=== PATIENT | male | born 1955 | race Caucasian/White ===

== ENCOUNTER 2019-12-14 08:21 | Outpatient (CLI) | payer SELFPAY ==
--- NOTE | 2019-12-14 08:35 | MM_ITS ---
WS: [id number] DIAGNOSTIC BILATERAL DIGITAL MAMMOGRAM WITH CAD RIGHT breast ultrasound with axilla, limited HISTORY: Painful RIGHT breast nodule. COMPARISON: None. TECHNIQUE: Bilateral craniocaudad, mediolateral oblique, and mediolateral views are submitted. Spot c ompression RIGHT CC Computer aided detection utilized. Breast composition: The breasts are almost entirely fatty. Rounded soft tissue mass with indistinct m argins. Mass is posterior to the nipple measuring 2.8 x 2.1 x 2.6 cm. Margins blend into the adjacent breast fat. Asymmetric to the LEFT side. LEFT breast tissue is negative. RIGHT breast ultrasound, limited. Hypoechoic irregular indistinct mass in the subareolar location with features of gynecomastia. Mass m easures 2.2 x 0.9 x 2.1 cm. Corresponds to the mammographic abnormality. Normal fatty sharonda remains in the axillary lymph nodes. MM/[id number] IMPRESSION: BI-RADS: 2-Benign FOLLOW UP: See Report Findings are most consistent with nodular gynecomastia. Clinically if this area continues to enlarge ultrasound-guided biopsy can be obtained.
== END 2019-12-14 08:22 | disposition home or self-care (01) ==
PROVIDERS: Family Provider Nurse Practitioner Family; PCP Family Medicine; Visit Provider Nurse Practitioner Family
DX: N63.41 Unspecified lump in right breast, subareolar (principal)
CPT/HCPCS: 76642; 77066

== ENCOUNTER → 2020-05-05 09:40 | Outpatient (BNVA) | payer SELFPAY | PROVIDERS: Family Provider Nurse Practitioner Family; PCP Family Medicine; Visit Provider Family Medicine | DX: N39.0 Urinary tract infection, site not specified (principal); R50.9 Fever, unspecified | CPT/HCPCS: 80053; 81003; 87077; 87086; 87186 ==

== ENCOUNTER 2020-05-06 17:43 | Emergency (ER) | payer SELFPAY ==
[2020-05-06 18:20] VITALS: BP 166/100; PULSE 83; RESP 18; TEMP 36.4; O2SAT 96; BMI 27.3
[2020-05-06 19:57] VITALS: BP 132/78; PULSE 86; RESP 16; O2SAT 98
--- NOTE | 2020-05-06 20:10 | W.ED.MALEGU ---
HPI - Male Genitourinary General: Chief complaint: Urogenital-Male Stated complaint: unable to void, abd swelling Time Seen by Provider: 05/06/20 19:45 History of Present Illness: HPI Narrative: 64-year-old male complains of urinary symptoms the past 3 days or so. He visited his doctor, who thought that he might have a urinary tract infection. He was placed on antibiotics. He reports today that he is only had dribbles of urine, and feels like he needs to go all the time. He is noticed that his lower belly feels esteban. MD Complaint: dysuria Onset (ago): day(s) (3) Duration: constant Location: right inguinal region and left inguinal region Severity: moderate Associated symptoms: Reports nausea; Deny dysuria, hematuria or vomiting Review of Systems Const: Denies: fever(s) or chills Eyes: Denies: change in vision ENMT: Denies: swelling of lips/tongue or sinus pain Card: Reports: swelling of feet/ankles; Denies: chest pain, palpitations or edema Resp: Denies: dyspnea, productive cough, non-productive cough or wheezing GI: Reports: abdominal pain and nausea; Denies: vomiting or rectal pain : Reports: difficulty urinating, urinary frequency and urinary urgency; Denies: dysuria or hematuria Musc: Reports: back pain; Denies: neck pain, joint redness or joint warmth Skin/Breast: Denies: rash, pruritus or erythema Neuro: Denies: headache(s), dizziness or vertigo Psych: Denies: anxiety [facility] ED PFSH: Medical History (Updated 05/06/20 @ 21:35 by Nabil Moe DO) Anterior chest wall pain Social History Smoking and tobacco status: current every day smoker cigarettes Packs smoked per day: 1 Alcohol intake: current Alcohol intake frequency: holidays/special occasions only Physical Exam Const: GENERAL APPEARANCE: well developed ORIENTATION/CONSCIOUSNESS: Yes oriented to person, Yes oriented to place and Yes oriented to time HENMT: COMMON NORMALS: normocephalic, external ears normal and Normal external nose present HEAD & SCALP: normocephalic FACE & SINUS: normal facial exam NOSE: Normal external nose present and No nasal discharge present EXTERNAL EAR: Yes external ears normal Eye: COMMON NORMALS: Equal, round and reactive pupils present, EOMs intact bilaterally and conjunctivae normal EYELID: eyelids normal CONJUNCTIVA: Yes conjunctivae normal PUPIL: Yes Equal, round and reactive pupils present Neck/C-Spine: GENERAL: No tracheal deviation Chest: COMMONS NORMALS: normal inspection of the chest CHEST: No tenderness Resp: COMMON NORMALS: clear to auscultation bilaterally EFFORT & INSPECTION: No tachypneic, No respiratory distress, No retractions, No uses accessory muscles and No tracheal deviation AUSCULTATION: clear to auscultation bilaterally, no rhonchi, no wheezes and lung sounds not diminished Cardio: COMMON NORMALS: regular rate and regular rhythm RATE: regular rate RHYTHM: regular rhythm HEART SOUNDS: no murmurs PERIPHERAL PULSES: radial pulses present GI: INSPECTION: No abdominal distension AUSCULTATION: No Hyperactive bowel sounds present and No Hypoactive bowel sounds present PALPATION: Yes Tenderness to palpation present (GI), Yes Guarding due to palpation present (GI), No Rigid due to palpation and Yes Bladder palpation abnormal Details: distended and tender PERCUSSION: no dullness to percussion and no tympanic to percussion : COMMON NORMALS: Yes no CVA tenderness BLADDER/KIDNEY EXAM: Yes no CVA tenderness and Yes Bladder palpation abnormal Back/Pelvis: COMMON NORMALS: no CVA tenderness Neuro: SENSORIUM/ORIENTATION: Yes oriented to person, Yes oriented to place and Yes oriented to time Psych: COMMON NORMALS: mental status grossly normal Skin: COMMON NORMALS: no rashes or lesions noted GENERAL SKIN EXAM: no rashes or lesions noted Course Vital Signs: Vital signs: Vital Signs Temperature 97.6 F 05/06/20 18:20 Pulse Rate 70 05/06/20 22:00 Respiratory Rate 16 05/06/20 22:00 Blood Pressure 128/72 05/06/20 22:00 Pulse Oximetry 98 05/06/20 22:00 MDM - Male MDM Narrative: Medical decision making narrative: 64-year-old male with frequency, urgency, dribbling urine, and belly pain. Bedside ultrasound revealed a very large bladder. On further history taking, it was noted that this patient was bitten in the penis by a horse at age 2, and his penis was reattached . On attempt to pass catheter, scar tissue at their urethra was encountered. A smaller red catheter without balloon was inserted, with nearly immediate output of 5000 mL. On discharge, the patient did put out 2000 mL of urine into his Jacob bag. With passage of the catheter, it is believed that the obstruction is resolved catheter was removed, and the patient will be discharged. Urinalysis showed a partially treated urinary tract infection. Third-generation cephalosporin will be added to his regimen. Lab Data: Labs: Lab Results 05/06/20 05/06/20 05/06/20 Range/Units 20:20 20:20 20:20 WBC 17.1 H (4.0-10.0) 10^3/ uL RBC 4.43 (4.1-5.3) 10^6/u L Hgb 13.3 (11.7-16.6) g/dL Hct 39.5 L (42.0-52.0) % MCV 89.2 (80-94) fL MCH 30.0 (28.0-34.0) pg MCHC 33.7 (30.0-36.0) g/dL RDW 13.6 (12.1-15.1) % Plt Count 231 (130-400) 10^3/c mm MPV 10.3 (7.4-10.4) fL Neut % (Auto) 83.3 % Lymph % (Auto) 7.7 % Dawson % (Auto) 7.7 % Eos % (Auto) 0.3 % Baso % (Auto) 0.2 % Neut # (Auto) 14.2 H (1.8-7.7) 10^3/u L Lymph # (Auto) 1.3 (0.8-4.8) 10^3/u L Dawson # (Auto) 1.3 H (0.2-0.9) 10^3/u L Eos # (Auto) 0.1 (0.0-0.8) 10^3/u L Baso # (Auto) 0.0 (0.0-0.1) 10^3/u L Nucleated RBC % (a uto) 0 % Nucleated RBCs # 0.0 /100WBC Sodium 132 L (136-145) mmol/L Potassium 3.5 (3.5-5.1) mmol/L Chloride 95 L (98-107) mmol/L Carbon Dioxide 23 (22-29) mmol/L Anion Gap 17.5 (5-19) BUN 15 (8-23) mg/dL Creatinine 0.7 (0.7-1.2) mg/dL GFR Calculation 112.8 (90-130) mL/min Glucose 122 H (65-115) mg/dL Calculated Osmolal ity 272 L (285-295) mOsm/k g Lactate 0.8 (0.5-2.2) mmol/L Calcium 9.3 (8.5-10.5) mg/dL Total Bilirubin 0.4 (0.15-1.2) mg/dL AST 28 (0-40) U/L ALT 47 H (0-41) U/L Alkaline Phosphata se 86 (40-130) IU/L Total Protein 7.3 (6.6-8.7) g/dL Albumin 3.9 (3.5-5.2) g/dL Globulin 3.4 (1.3-4.6) g/dL Urine Color (Yellow) Urine Appearance (CLEAR) Urine pH (5-7) Ur Specific Gravit y (1.005-1.030) Urine Protein (Negative) Urine Glucose (UA) (Normal) Urine Ketones (Negative) Urine Blood (Negative) Urine Nitrate (Negative) Urine Bilirubin (NEGATIVE) Urine Urobilinogen (Negative) mg/dL Ur Leukocyte Giulia ase (Negative) Urine RBC (0-2) /hpf Urine WBC (0-5) /hpf Ur Squamous Epith Cells (0-5) Urine Bacteria (NONE) /12 Range/Units 20:35 WBC (4.0-10.0) 10^3/ uL RBC (4.1-5.3) 10^6/u L Hgb (11.7-16.6) g/dL Hct (42.0-52.0) % MCV (80-94) fL MCH (28.0-34.0) pg MCHC (30.0-36.0) g/dL RDW (12.1-15.1) % Plt Count (130-400) 10^3/c mm MPV (7.4-10.4) fL Neut % (Auto) % Lymph % (Auto) % Dawson % (Auto) % Eos % (Auto) % Baso % (Auto) % Neut # (Auto) (1.8-7.7) 10^3/u L Lymph # (Auto) (0.8-4.8) 10^3/u L Dawson # (Auto) (0.2-0.9) 10^3/u L Eos # (Auto) (0.0-0.8) 10^3/u L Baso # (Auto) (0.0-0.1) 10^3/u L Nucleated RBC % (a uto) % Nucleated RBCs # /100WBC Sodium (136-145) mmol/L Potassium (3.5-5.1) mmol/L Chloride (98-107) mmol/L Carbon Dioxide (22-29) mmol/L Anion Gap (5-19) BUN (8-23) mg/dL Creatinine (0.7-1.2) mg/dL GFR Calculation (90-130) mL/min Glucose (65-115) mg/dL Calculated Osmolal ity (285-295) mOsm/k g Lactate (0.5-2.2) mmol/L Calcium (8.5-10.5) mg/dL Total Bilirubin (0.15-1.2) mg/dL AST (0-40) U/L ALT (0-41) U/L Alkaline Phosphata se (40-130) IU/L Total Protein (6.6-8.7) g/dL Albumin (3.5-5.2) g/dL Globulin (1.3-4.6) g/dL Urine Color [place] (Yellow) Urine Appearance Clear (CLEAR) Urine pH 6 (5-7) Ur Specific Gravit y 1.010 (1.005-1.030) Urine Protein 1+ H (Negative) Urine Glucose (UA) Norm (Normal) Urine Ketones Negative (Negative) Urine Blood 2+ H (Negative) Urine Nitrate Positive H (Negative) Urine Bilirubin 1+ H (NEGATIVE) Urine Urobilinogen 4 H (Negative) mg/dL Ur Leukocyte Giulia ase Trace H (Negative) Urine RBC 0-4 H (0-2) /hpf Urine WBC 5-10 H (0-5) /hpf Ur Squamous Epith Cells 0-4 H (0-5) Urine Bacteria 3+ H (NONE) Discharge Plan Discharge Patient Disposition: Home, Self-Care Clinical Impression: Acute retention of urine UTI (urinary tract infection) Qualifiers: Urinary tract infection type: acute cystitis Condition: Stable Prescriptions: New cefdinir 300 mg capsule 300 mg PO Q12H 10 Days Qty: 20 RF: 0 No Action ibuprofen 200 mg capsule 600 mg PO Q6H PRNRF: 0 doxycycline hyclate [Vibramycin] 100 mg capsule 100 mg PO BID 14 Days Qty: 28 RF: 0 Discharge Orders: Discharge Order (Routine); Ordered 05/06/20 Ordered By: Nabil Moe Referrals: Dillon Bermudez DO [Primary Care Provider] - 4-7 days Patient Instructions: Urinary Retention in Men (ED), Urinary Tract Infection - Men Activity Restrictions/Additional Instructions: Medication as directed. You may continue your other antibiotic. Return for return of symptoms, fever greater than 100 despite 2-3 doses of antibiotics, mental status changes, other concerning symptoms. Discharge Date/Time: 05/06/20 22:12 Coding Level of Care Code ED Liability Claims Representative for Tae Farrell
[2020-05-06 20:30] LABS: Basophils % 0.2 %; Eosinophils # 0.1 10^3/uL (0.0-0.8); Eosinophils % 0.3 %; Hematocrit 39.5 % (42.0-52.0); Hemoglobin 13.3 g/dL (11.7-16.6); Lymphocytes # 1.3 10^3/uL (0.8-4.8); Lymphocytes % 7.7 %; Mean Corpuscular HGB Conc 33.7 g/dL (30.0-36.0); Mean Corpuscular Volume 89.2 fL (80-94); Mean Platelet Volume 10.3 fL (7.4-10.4); Monocytes # 1.3 10^3/uL (0.2-0.9); Monocytes % 7.7 %; Neutrophils # 14.2 10^3/uL (1.8-7.7); Neutrophils % 83.3 %; Nucleated Red Blood Cells % 0 %; Platelet Count 231 10^3/cmm (130-400); Red Blood Count 4.43 10^6/uL (4.1-5.3); Red Cell Distribution Width 13.6 % (12.1-15.1); White Blood Count 17.1 10^3/uL (4.0-10.0)
[2020-05-06 20:43] LABS: Lactate (Lactic Acid level) 0.8 mmol/L (0.5-2.2)
[2020-05-06 20:44] LABS: Alanine Aminotransferase 47 U/L (0-41); Albumin Level 3.9 g/dL (3.5-5.2); Alkaline Phosphatase 86 IU/L (40-130); Anion Gap 17.5 (5-19); Aspartate Amino Transferase 28 U/L (0-40); Blood Urea Nitrogen 15 mg/dL (8-23); Calcium 9.3 mg/dL (8.5-10.5); Carbon Dioxide 23 mmol/L (22-29); Chloride 95 mmol/L (98-107); Globulin 3.4 g/dL (1.3-4.6); Glomerular Filtration Rate 112.8 mL/min (90-130); Glucose 122 mg/dL (65-115); Osmolality Calculated 272 mOsm/kg (285-295); Potassium 3.5 mmol/L (3.5-5.1); Sodium 132 mmol/L (136-145); Total Bilirubin 0.4 mg/dL (0.15-1.2); Total Protein 7.3 g/dL (6.6-8.7)
[2020-05-06 21:03] LABS: Add Urine Microscopic? YES; Bilirubin Urine 1+ (NEGATIVE); Blood Urine 2+ (Negative); Glucose Urine UA Norm (Normal); Ketones Urine Negative (Negative); Leukocyte Esterase Urine Trace (Negative); Nitrate Urine Positive (Negative); Protein Urine 1+ (Negative); Urine Appearance Clear (CLEAR); Urine Color Orange (Yellow); Urobilinogen Urine 4 mg/dL (Negative); pH Urine 6 (5-7)
[2020-05-06 21:08] LABS: RBC Urine 0-4 /hpf (0-2)
[2020-05-06 21:09] LABS: Add Urine Culture? Yes; Bacteria Urine 3+; Squamous Epithelial Cell Urine 0-4 (0-5)
[2020-05-06] MEDS: cefdinir 300 MG CAPSULE PO (21:50)
[2020-05-06 22:00] VITALS: BP 128/72; PULSE 70; RESP 16; O2SAT 98
--- NOTE | 2020-05-06 22:11 | PC.NURSE ---
Teaching completed to patient and spouse on meds and home care. Many questions asked and answered.
== END 2020-05-06 22:12 | disposition home or self-care (01) ==
PROVIDERS: Family Medicine; Physician Assistant; Emergency Provider Emergency Medicine; PCP Family Medicine
DX: N30.00 Acute cystitis without hematuria (principal); F17.210 Nicotine dependence, cigarettes, uncomplicated
CPT/HCPCS: 12345; 36415; 51702; 80053; 81001; 83605; 85025; 87040; 87077; 87086; 87186; 99282; 99283

== ENCOUNTER 2020-05-07 06:32 | Emergency (ER) | payer SELFPAY ==
[2020-05-07 06:41] VITALS: BP 192/128; PULSE 92; RESP 26; TEMP 36.1; O2SAT 97; BMI 27.3
[2020-05-07 06:56] VITALS: RESP 18
--- NOTE | 2020-05-07 06:58 | ED_ITS ---
HPI - Male Genitourinary General: Chief complaint: Urogenital-Male Stated complaint: CAN'T URINATE/WAS SEEN HERE YESTERDAY Time Seen by Provider: 05/07/20 06:53 History of Present Illness: HPI Narrative: Patient here because unable to urinate was seen here in the ER left night and did have a 16 [place] coud? inserted and was able to drain the bladder did not have catheter with the balloon available presently. 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 Bermudez day before treated for UTI and was placed on third-generation cephalosporin last night Complaint: other (Urinary retention) Onset (ago): hour(s) Duration: progressively worsening Severity: severe Severity scale (1-10): 6 Quality: aching Relieving factors: none Exacerbating factors: movement Associated symptoms: Reports no associated symptoms; Deny nausea or vomiting Review of Systems Const: Denies: fever(s), chills or body aches Eyes: Denies: change in vision or blurry vision ENMT: Denies: throat pain or nasal congestion Card: Reports: other (High blood pressure); Denies: chest pain or dyspnea on exertion Resp: Denies: dyspnea, productive cough or non-productive cough GI: Denies: abdominal pain, nausea or vomiting : Reports: difficulty urinating Musc: Denies: extremity pain Skin/Breast: Denies: rash Neuro: Denies: headache(s) Psych: Denies: anxiety or depression Ranulfo/Lymph: Denies: easy bruising PFSH ED PFSH: Medical History (Updated 05/06/20 @ 21:35 by Nabil Moe DO) Anterior chest wall pain Social History Smoking and tobacco status: current every day smoker cigarettes Packs smoked per day: 1 Alcohol intake: current Alcohol intake frequency: holidays/special occasions only Physical Exam Const: COMMON NORMALS: no acute distress, average body habitus and patient oriented x3 HENMT: COMMON NORMALS: normocephalic HEAD & SCALP: normal to inspection and normocephalic FACE & SINUS: normal facial exam Eye: COMMON NORMALS: conjunctivae normal GENERAL EYE: appearance normal, both eyes and all related structures CONJUNCTIVA: Yes conjunctivae normal Neck/C-Spine: COMMON NORMALS: no JVD Chest: COMMONS NORMALS: normal inspection of the chest Resp: COMMON NORMALS: normal respiratory effort and clear to auscultation bilaterally AUSCULTATION: clear to auscultation bilaterally Cardio: COMMON NORMALS: no JVD, regular rate and regular rhythm RATE: regular rate RHYTHM: regular rhythm GI: COMMON NORMALS: Normal to inspection, nondistended, normoactive bowel sounds present PALPATION: Yes Bladder palpation abnormal : BLADDER/KIDNEY EXAM: No bladder normal to palpation and Yes Bladder palpation abnormal Bladder abnormal details: tender Extremity: COMMON NORMALS: normal to inspection and full ROM Neuro: COMMON NORMALS: patient oriented x3 Course Vital Signs: Vital signs: Vital Signs Temperature 96.9 F L 05/07/20 06:41 Pulse Rate 92 05/07/20 06:41 Respiratory Rate 18 05/07/20 06:56 Blood Pressure 192/128 05/07/20 06:41 Pulse Oximetry 97 05/07/20 06:41 Discharge Plan Discharge Prescriptions: No Action ibuprofen 200 mg capsule 600 mg PO Q6H PRNRF: 0 doxycycline hyclate [Vibramycin] 100 mg capsule 100 mg PO BID 14 Days Qty: 28 RF: 0 cefdinir 300 mg capsule 300 mg PO Q12H 10 Days Qty: 20 RF: 0 Coding Level of Care Code ED Sales & Service Associate for Tae Farrell
[2020-05-07 07:57] VITALS: RESP 18; TEMP 36.1; O2SAT 97
--- NOTE | 2020-05-09 15:56 | DCPLANNER ---
warehouse logistics manager had message to schedule a follow up appointment for patient with Dr. Penaloza. warehouse logistics manager called the office of Dr. Penaloza, spoke with Bella. warehouse logistics manager gave clinic patients information. warehouse logistics manager was told that patients information would be printed and reviewed. Clinic will call patient with appointment information.
--- NOTE | 2020-05-10 08:15 | DCPLANNER ---
Patient has a follow up appointment scheduled for Saturday, May 23, 2020 at 2:45.
--- NOTE | 2020-05-25 14:48 | DCPLANNER ---
Appointment with Dr. Penaloza was rescheduled to a later date.
== END 2020-05-07 07:58 | disposition home or self-care (01) ==
PROVIDERS: Emergency Provider Nurse Practitioner Family; PCP Family Medicine
DX: R39.11 Hesitancy of micturition (principal); F17.210 Nicotine dependence, cigarettes, uncomplicated
CPT/HCPCS: 12345; 51702; 99282

== ENCOUNTER → 2020-05-12 09:00 | Outpatient (BNVA) | payer SELFPAY | PROVIDERS: PCP Family Medicine; Visit Provider Family Medicine | DX: R31.9 Hematuria, unspecified (principal); M10.9 Gout, unspecified; M79.673 Pain in unspecified foot | CPT/HCPCS: 84550 ==

== ENCOUNTER 2020-05-21 15:22 | Emergency (ER) | payer SELFPAY ==
[2020-05-21 15:24] VITALS: BP 179/104; PULSE 80; RESP 16; TEMP 36.9; O2SAT 96; BMI 27.3
--- NOTE | 2020-05-21 15:45 | ED_ITS ---
Documented by User: MARLENY Jj 05/21/20 15:47 HPI - Male Genitourinary General: Chief complaint: Urogenital-Male Stated complaint: urination problems Time Seen by Provider: 05/21/20 15:23 History of Present Illness: HPI Narrative: Patient comes in with history of the urine leaking around his cath now is been in place [address] Bermudez and is kept him on antibiotics. Patient has a history of blood in the urine also. Said is somewhat dis-comfort with the urinary catheter in place. Has an appointment to see Dr. Penaloza on the second. Complaint: other (Leaking around Jacob catheter) Onset (ago): day(s) Duration: intermittent and progressively worsening Associated symptoms: Deny nausea or vomiting Review of Systems Const: Denies: fever(s), chills or body aches Eyes: Denies: change in vision or blurry vision ENMT: Denies: throat pain or nasal congestion Card: Denies: chest pain or dyspnea on exertion Resp: Denies: dyspnea, productive cough or non-productive cough GI: Denies: abdominal pain, nausea or vomiting : Reports: other (Leaking around the Jacob catheter in the penis); Denies: difficulty urinating Musc: Denies: extremity pain Skin/Breast: Denies: rash Neuro: Denies: headache(s) Psych: Denies: anxiety or depression Ranulfo/Lymph: Denies: easy bruising PFS ED PFSH: Medical History (Updated 05/21/20 @ 16:54 by MARLENY Jj) Anterior chest wall pain Social History Smoking and tobacco status: current some day smoker cigarettes Packs smoked per day: 1 Alcohol intake: current Alcohol intake frequency: holidays/special occasions only Physical Exam Const: COMMON NORMALS: no acute distress, average body habitus and patient oriented x3 HENMT: COMMON NORMALS: normocephalic HEAD & SCALP: normal to inspection and normocephalic FACE & SINUS: normal facial exam Eye: COMMON NORMALS: conjunctivae normal GENERAL EYE: appearance normal, both eyes and all related structures CONJUNCTIVA: Yes conjunctivae normal Neck/C-Spine: COMMON NORMALS: no JVD Chest: COMMONS NORMALS: normal inspection of the chest Resp: COMMON NORMALS: normal respiratory effort and clear to auscultation bilaterally AUSCULTATION: clear to auscultation bilaterally Cardio: COMMON NORMALS: no JVD, regular rate and regular rhythm RATE: regular rate RHYTHM: regular rhythm GI: COMMON NORMALS: Normal to inspection, nondistended, normoactive bowel sounds present Extremity: COMMON NORMALS: normal to inspection and full ROM Neuro: COMMON NORMALS: patient oriented x3 Course Vital Signs: Vital signs: Vital Signs Temperature 98.5 F 05/21/20 15:24 Pulse Rate 80 05/21/20 15:24 Respiratory Rate 18 05/21/20 16:27 Blood Pressure 179/104 05/21/20 15:24 Pulse Oximetry 98 05/21/20 16:27 MDM - Male Lab Data: Labs: Lab Results 05/21/20 Range/Units 16:50 Urine Color [place] (Yellow) Urine Appearance Hazy A (CLEAR) Urine pH 6.5 (5-7) Ur Specific Gravit y 1.010 (1.005-1.030) Urine Protein 1+ H (Negative) Urine Glucose (UA) Norm (Normal) Urine Ketones Negative (Negative) Urine Blood 3+ H (Negative) Urine Nitrate Negative (Negative) Urine Bilirubin Neg (NEGATIVE) Urine Urobilinogen Norm (Negative) mg/dL Ur Leukocyte Giulia ase Negative (Negative) Urine RBC >100 H (0-2) /hpf Urine WBC Rare (0-5) /hpf Ur Squamous Epith Cells None (0-5) Amorphous Sediment 1+ Urine Bacteria Trace (NONE) Discharge Plan Discharge Patient Disposition: Home, Self-Care Clinical Impression: Chronic indwelling Jacob catheter Condition: Stable Prescriptions: No Action ibuprofen 200 mg capsule 600 mg PO Q6H PRNRF: 0 doxycycline hyclate [Vibramycin] 100 mg capsule 100 mg PO BID 14 Days Qty: 28 RF: 0 indomethacin 25 mg capsule 25 mg PO TID Qty: 30 RF: 1 Discharge Orders: Discharge Order (Routine); Ordered 05/21/20 Ordered By: Jacob Messer Referrals: Dillon Bermudez DO [Primary Care Provider] - Discharge Diet: Usual diet Discharge Activity: Resume usual activity Patient Instructions: Jacob Catheter Placement and Care (ED) Activity Restrictions/Additional Instructions: Follow-up Dr. Penaloza as scheduled drink plenty of fluids if any symptoms or problems develop please follow back up here or with your primary care provider Coding Level of Care Code ED Assembler Wire Mesh Gate for Chg Fwd Exam Comprehensive Documented by User: Maryana Norton APRN 05/21/20 17:44 HPI - Male Genitourinary General: Chief complaint: Urogenital-Male Stated complaint: urination problems Time Seen by Provider: 05/21/20 15:23 PFSH ED PFSH: Medical History (Updated 05/21/20 @ 16:54 by MARLENY Jj) Anterior chest wall pain Social History Smoking and tobacco status: current some day smoker cigarettes Packs smoked per day: 1 Alcohol intake: current Alcohol intake frequency: holidays/special occasions only Course Vital Signs: Vital signs: Vital Signs Temperature 98.5 F 05/21/20 15:24 Pulse Rate 80 05/21/20 15:24 Respiratory Rate 18 05/21/20 16:27 Blood Pressure 179/104 05/21/20 15:24 Pulse Oximetry 98 05/21/20 16:27 MDM - Male Lab Data: Labs: Lab Results 05/21/20 Range/Units 16:50 Urine Color [place] (Yellow) Urine Appearance Hazy A (CLEAR) Urine pH 6.5 (5-7) Ur Specific Gravit y 1.010 (1.005-1.030) Urine Protein 1+ H (Negative) Urine Glucose (UA) Norm (Normal) Urine Ketones Negative (Negative) Urine Blood 3+ H (Negative) Urine Nitrate Negative (Negative) Urine Bilirubin Neg (NEGATIVE) Urine Urobilinogen Norm (Negative) mg/dL Ur Leukocyte Giulia ase Negative (Negative) Urine RBC >100 H (0-2) /hpf Urine WBC Rare (0-5) /hpf Ur Squamous Epith Cells None (0-5) Amorphous Sediment 1+ Urine Bacteria Trace (NONE) Discharge Plan Discharge Patient Disposition: Home, Self-Care Clinical Impression: Chronic indwelling Jacob catheter Condition: Stable Prescriptions: No Action ibuprofen 200 mg capsule 600 mg PO Q6H PRNRF: 0 doxycycline hyclate [Vibramycin] 100 mg capsule 100 mg PO BID 14 Days Qty: 28 RF: 0 indomethacin 25 mg capsule 25 mg PO TID Qty: 30 RF: 1 Discharge Orders: Discharge Order (Routine); Ordered 05/21/20 Ordered By: Jacob Messer Referrals: Dillon Bermudez DO [Primary Care Provider] - Discharge Diet: Usual diet Discharge Activity: Resume usual activity Patient Instructions: Jacob Catheter Placement and Care (ED) Activity Restrictions/Additional Instructions: Follow-up Dr. Penaloza as scheduled drink plenty of fluids if any symptoms or problems develop please follow back up here or with your primary care provider Coding Level of Care Code ED Assembler Wire Mesh Gate for Tae Fwd Exam Comprehensive
[2020-05-21 16:27] VITALS: RESP 18; O2SAT 98
[2020-05-21] MEDS: morphine 4 mg/mL SDV 1 mL IM (16:27)
[2020-05-21] MEDS: ondansetron 4 MG Tablet PO (16:27)
[2020-05-21 17:10] LABS: Add Urine Microscopic? YES; Bilirubin Urine Neg (NEGATIVE); Blood Urine 3+ (Negative); Glucose Urine UA Norm (Normal); Ketones Urine Negative (Negative); Leukocyte Esterase Urine Negative (Negative); Nitrate Urine Negative (Negative); Protein Urine 1+ (Negative); RBC Urine >100 /hpf (0-2); Urine Appearance Hazy (CLEAR); Urine Color Amber (Yellow); Urobilinogen Urine Norm (Negative); pH Urine 6.5 (5-7)
[2020-05-21 17:11] LABS: Add Urine Culture? Yes; Amorphous Sediment Urine 1+; Bacteria Urine TRACE; WBC Urine RARE /hpf (0-5)
[2020-05-21 18:06] VITALS: BP 104/68; PULSE 74; RESP 18; O2SAT 98
== END 2020-05-21 18:15 | disposition home or self-care (01) ==
PROVIDERS: Emergency Provider Nurse Practitioner Family; PCP Family Medicine
DX: R39.198 Other difficulties with micturition (principal); F17.210 Nicotine dependence, cigarettes, uncomplicated
CPT/HCPCS: 12345; 51702; 81001; 87086; 96372; 99281; 99282; 99283; J2270; Q0162

== ENCOUNTER 2020-05-27 19:54 | Observation (INO) | payer MEDICARE, SELFPAY ==
[2020-05-27 20:27] VITALS: BP 127/85; PULSE 95; RESP 20; TEMP 36.9; O2SAT 97; BMI 25.8
[2020-05-27 22:53] LABS: Basophils % 0.3 %; Eosinophils % 0.2 %; Hematocrit 40.3 % (42.0-52.0); Hemoglobin 12.9 g/dL (11.7-16.6); Lymphocytes # 3.1 10^3/uL (0.8-4.8); Lymphocytes % 25.7 %; Mean Corpuscular Volume 93.7 fL (80-94); Mean Platelet Volume 9.8 fL (7.4-10.4); Monocytes # 0.6 10^3/uL (0.2-0.9); Monocytes % 5.3 %; Neutrophils # 8.2 10^3/uL (1.8-7.7); Neutrophils % 68.1 %; Nucleated Red Blood Cells % 0 %; Platelet Count 324 10^3/cmm (130-400); Red Cell Distribution Width 13.9 % (12.1-15.1)
[2020-05-27 23:08] LABS: Alanine Aminotransferase 49 U/L (0-41); Albumin Level 4.1 g/dL (3.5-5.2); Alkaline Phosphatase 78 IU/L (40-130); Anion Gap 14.8 (5-19); Aspartate Amino Transferase 36 U/L (0-40); Blood Urea Nitrogen 20 mg/dL (8-23); Calcium 9.9 mg/dL (8.5-10.5); Carbon Dioxide 27 mmol/L (22-29); Chloride 102 mmol/L (98-107); Globulin 3.5 g/dL (1.3-4.6); Glomerular Filtration Rate 50.7 mL/min (90-130); Glucose 145 mg/dL (65-115); Osmolality Calculated 287 mOsm/kg (285-295); Potassium 4.8 mmol/L (3.5-5.1); Sodium 139 mmol/L (136-145); Total Bilirubin 0.4 mg/dL (0.15-1.2); Total Protein 7.6 g/dL (6.6-8.7)
[2020-05-28] VITALS (9 sets, daily range): BP systolic 137–160; BP diastolic 82–114; PULSE 63–81; RESP 16–20; TEMP 36.6–36.8; O2SAT 94–96
--- NOTE | 2020-05-28 00:16 | CTR_ITS ---
PROCEDURE INFORMATION: Exam: CT Abdomen And Pelvis Without Contrast Exam date and time: 05/28/2020 12:21 AM Age: 64 years old Clinical indication: Other: Hematuria; Prior surgery; Surgery type: Appy TECHNIQUE: Imaging protocol: Computed tomography of the abdomen and pelvis without contrast. Radiation optimization: All CT scans at this facility use at least one of these dose optimization techniques: automated exposure control; mA and/or kV adjustment per patient size (includes targeted exams where dose is matched to clinical indication); or iterative reconstruction. COMPARISON: CT abdomen pelvis w con* [id number] 06/09/2018 5:57 AM RADIATION DOSE METRICS: Total DLP (mGy-cm): 905.77 FINDINGS: Tubes, catheters and devices: A balloon bladder catheter is present. Liver: There are unchanged liver cysts. Gallbladder and bile ducts: Normal. No calcified stones. No ductal dilation. Pancreas: Normal. No ductal dilation. Spleen: Normal. No splenomegaly. Adrenals: Normal. No mass. Kidneys and ureters: There is no evidence of hydronephrosis. There is no evidence of renal calcifications. There is a simple cyst in the right kidney. Stomach and bowel: Moderate diverticulosis is present in the distal colon. There is no evidence of colitis/diverticulitis. There is abundant colonic stool compatible with constipation. No impaction. Appendix: There has been an appendectomy. Intraperitoneal space: Unremarkable. No free air. No significant fluid collection. Vasculature: The aorta demonstrates moderate atherosclerotic calcification. Lymph nodes: Unremarkable.No enlarged lymph nodes. Bladder: There is nonspecific bladder wall thickening. This may be related to cystitis and/or incomplete distention. There is induration of the fat adjacent to the bladder which also suggests cystitis. Reproductive: Unremarkable as visualized. Bones/joints: Unremarkable. No acute fracture. Soft tissues: There is a fat-containing umbilical hernia. Other findings: Incidental note is made of a probable urachus. CT/CT kidney stone [id number] IMPRESSION: 1. There is nonspecific bladder wall thickening. This may be related to cystitis and/or incomplete distention. There is induration of the fat adjacent to the bladder which also suggests cystitis. The kidneys have an appropriate appearance. 2. There is a unchanged simple cyst in the right kidney. No follow-up is necessary. 3. There is constipation. Diverticulosis without diverticulitis. No bowel thickening or inflammatory changes. COMMENTS: Consistent with the [employer]'s Incidental Findings Committee white paper (J Am Guillaume Radiol 2018): Any incidental renal lesion less than 1.0 cm or classified as too small to characterize, or any incidental cystic renal lesion characterized as simple-appearing, is likely benign. No follow-up imaging is recommended for these lesions per consensus recommendations based on imaging criteria. Radiation Dose CTDIVOL = (mGy): DLP = 905.77 (mGy-cm)
[2020-05-28 01:48] LABS: Protein Urine 2+ (Negative); Specific Gravity, Urine 1.025 (1.005-1.030); Urine Appearance Hazy (CLEAR); Urine Color Brown (Yellow); pH Urine 5 (5-7)
[2020-05-28 01:49] LABS: Add Urine Microscopic? YES; Bilirubin Urine Neg (NEGATIVE); Blood Urine 3+ (Negative); Glucose Urine UA Norm (Normal); Ketones Urine 1+ (Negative); Leukocyte Esterase Urine Trace (Negative); Nitrate Urine Positive (Negative); Urobilinogen Urine Norm (Negative)
[2020-05-28 01:57] LABS: Hyaline Casts Urine >100
[2020-05-28 01:59] LABS: Add Urine Culture? Yes; Bacteria Urine 2+; RBC Urine 50-80 /hpf (0-2); Squamous Epithelial Cell Urine 0-4 (0-5); Transitional Epi Cells Urine 0-4 /hpf; WBC Urine 0-4 /hpf (0-5)
--- NOTE | 2020-05-28 03:17 | PM.HP ---
Providers/Chief Complaint Chief Complaint: CATH PROBLEMS History of Present Illness Ochoa Vanegas is a 64 year old male who does not carry significant past medical history came in with chief complaint of lower abdominal pain and dysuria. Patient was in usual state of health until 3 weeks ago he started experiencing low urine output, abdominal pain for which he was evaluated in the ER, he had straight catheterization done which relieved his urinary tension, on his second visit catheter was placed because of recurrent urinary retention, he has been evaluated at Dr. Penaloza's clinic, he was prescribed doxycycline for dysuria on 05/12. He has another appointment with Dr. Penaloza in 2 weeks for persistent hematuria. He is endorsing night sweats, weight loss 10 pounds in 3 weeks, febrile episode 3 weeks ago. He is endorsing childhood trauma to penile area(bitten by a horse at age 2). Throughout his life he never experienced any urinary obstruction. On 05/06 on attempt to pass catheter scar tissue at the urethra was encountered hence more red catheter without balloon was inserted which drained 5 L. He presented today because of persistent lower abdominal pain which he is describing as cramping/colicky in nature with urinary urgency and dribbling. He is denying nausea, vomiting, fever, shortness of breath. Diagnostics in the ER revealed UTI. He has been given 1 L normal saline and ceftriaxone, previous urine culture grew E. coli which is pansensitive Review of Systems Const: Reports: chills, body aches, change in appetite, change in weight and fatigue; Denies: fever(s) Eyes: Denies: change in vision ENMT: Denies: throat pain Card: Denies: chest pain Resp: Denies: dyspnea GI: Reports: abdominal pain and constipation; Denies: nausea, vomiting or diarrhea : Reports: difficulty urinating, dysuria, urinary urgency and urinary dribbling; Denies: flank pain Musc: Denies: neck pain or back pain Skin/Breast: Denies: rash Neuro: Denies: headache(s) Psych: Denies: anxiety or depression Endo: Denies: polyuria Ranulfo/Lymph: Denies: easy bruising All/Imm: Denies: urticaria Medications/Allergies Home Medications Medication Instructions Recorded Confirmed Last Taken Type ibuprofen 200 mg capsule 600 mg PO Q6H PRN 12/08/19 05/26/20 Unknown History tamsulosin 0.4 mg capsule 0.4 mg PO .at bedtime #30 cap 05/26/20 05/26/20 Unknown Rx Allergies Allergy/AdvReac Type Severity Reaction Status Date / Time No Known Allergies Allergy Verified 05/27/20 20:27 PFSH Acute PFSH: Medical History Anterior chest wall pain Chronic indwelling Jacob catheter Foot pain Gout Urethral stricture Urinary retention UTI (urinary tract infection) Surgical History History of appendectomy Family History Denies family history of Hyperlipidemia Hypertension Social History Smoking and tobacco status: current some day smoker cigarettes Packs smoked per day: 1 Alcohol intake: current Alcohol intake frequency: holidays/special occasions only Household members: spouse Marital status: Current occupational status: retired Vitals/I&O/Wt Last Vital Signs Temp 98.5 F 05/27/20 20:27 Pulse 73 05/28/20 03:15 Resp 18 05/28/20 03:15 BP 147/114 05/28/20 03:15 Pulse Ox 95 05/28/20 03:15 Weight last 48 hrs Weight 77.111 kg Physical Exam Narrative: EXAM NARRATIVE: Head to toe examination Patient sitting comfortably in his bed without any active discomfort S1, S2 no signs of heart failure or tachycardia Abdomen soft nontender no CVA tenderness, Lungs are clear to auscultation Neurologically nonfocal exam Jacob catheter draining concentrated blood-tinged urine Appropriate mood and affect Does not look septic Lower extremity without any signs of ischemia gangrene ulcer BPH Data : 05/27/20 22:36 05/27/20 22:36 A&P Assessment and plan (1) UTI (urinary tract infection): Status: Acute Qualifiers: Urinary tract infection type: acute cystitis (2) Dehydration: Status: Acute (3) Urinary retention: Status: Acute Additional A&P Information Acute UTI Urinary retention and recent Jacob catheter placement Urine culture grew E. coli which is pansensitive Would use ceftriaxone and normal saline Scheduled to see Dr. Penaloza in 2 weeks Not septic at this point, leukocytosis without fever or tachycardia No CVA tenderness CT abdomen did not reveal hydronephrosis BPH+ Dehydration due to poor p.o. intake Resuscitation with normal saline Acute kidney injury secondary to urinary tension and UTI Catheter is draining concentrated blood-tinged urine He seems secondary to dehydration no active hydronephrosis Persistent hematuria: Patient is a smoker with weight loss and night sweats Scheduled to see Dr. Penaloza, He will need cystoscopy down the road Full code Avoid DVT prophylaxis because of hematuria Regular diet Attestations Medical Necessity Statement*: Anticipating discharge in less than 48 hours continued IV fluid cessation and IV antibiotics for UTI Time Spent in Patient Care: (>than 50% of time spent in counselling and/or direct pt care on unit). 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
[2020-05-28] MEDS: cefTRIAXone 1,000 MG in sodium chloride 0.9% (plus) 50 ML 100 MG IV (04:39)
[2020-05-28] MEDS: sodium chloride 0.9% 1,000 ML 999 ML IV (04:39)
[2020-05-28] MEDS: sodium chloride 0.9% 1,000 ML 75 ML IV ×2 (07:10→22:26)
--- NOTE | 2020-05-28 12:58 | PC.CHAP ---
Pastoral Care Encounter/Spiritual Assessment Type of Contact [] Declined radial arm saw operator visit [] Patient/Family/Request visit [] Outpatient visit [] Follow-up visit [] Physician referral [] Code/Alert [X] Routine visit [] Staff referral [] Actively dying [] Patient sleeping [] Family support [] [] Out of room [] Palliative care [] [] Receiving care in room [] Pre-surgical visit [] Trauma [] Long length of stay [] ICU visit [] Other: Relational/Emotional Strength [] Patient feels connected with others/family/visitors/staff [] Distress [] Loneliness/isolation [] Abandonment Spirituality of Patient [X] Person of Idania [X] Attends Oriental Orthodox of their Idania [X] Believes in Prayer [X] Reads Bible or Yarsani materials [] There are Spiritual issues to be addressed Cut Off Saw Tender Metal Interventions [] Prayer [X] Active listening [X] Non-anxious presence [X] Spiritual/emotional support [] Crisis/trauma care [] Spiritual counseling [] Bereavement support [] Provided bereavement packet [] Provided Bible/devotional materials [] Provided toy/stuffed animal, coloring book to patient or family member [] Provided Communion [] Anointing/[place] [] Salvation [] Completed spiritual assessment [] Other: Impact on Illness or Injury [] Angry [] Fearful [] Anxious [] Often cries [] Exhaustion [] Unable to work [] Unable to attend confucianist [] Unable to walk/stand [] Unable to read [] Unable to drive [] Unable to eat/drink [] Unable to sleep [] Unable to be with family [] Patient intubated [] Other: Summary IN [employer] Time spent with patient
--- NOTE | 2020-05-28 18:14 | P.PN_ITS ---
Subjective Subjective: Interval history: Diuresing well currently. Has had more than thousand units of output in the bag. No longer having any bleeding or trickling from around the site of catheter insertion. Medications: Reviewed: Yes Vitals/I&O/Wt Last Vital Signs Temp 98.3 F 05/28/20 12:00 Pulse 66 05/28/20 12:00 Resp 18 05/28/20 12:00 BP 144/90 05/28/20 12:00 Pulse Ox 94 05/28/20 12:00 05/28/20 05/28/20 05/28/20 06:59 14:59 22:59 Intake Total 1050 / 1050 720 / 720 Output Total 1000 / 1000 Balance 1050 / 1050 -280 / -280 Weight last 48 hrs Weight 77.111 kg Physical Exam Narrative: EXAM NARRATIVE: GEN: Awake, alert and oriented, no acute distress CVS: S1S2 N RS: CTA B/L Abd: Soft, nt/nd , bs+ CIRCULATING NURSE: no focal neuro deficits Urinary Catheter Management^: Jacob: Cath Placed During This Visit: no Reason for Continuing Indwelling Catheter: Acute Urinary Retention or Obstruction Data : 05/27/20 22:36 05/27/20 22:36 A&P Assessment and plan (1) Catheter-associated urinary tract infection: Status: Acute Qualifiers: Indwelling urinary catheter type: indwelling urethral catheter Encounter type: initial encounter Qualified Code(s): T83.511A - Infection and inflammatory reaction due to indwelling urethral catheter, initial encounter; N39.0 - Urinary tract infection, site not specified (2) UTI (urinary tract infection): Status: Acute Qualifiers: Urinary tract infection type: acute cystitis Hematuria presence: with hematuria Qualified Code(s): N30.01 - Acute cystitis with hematuria (3) Dehydration: Status: Acute (4) Urinary retention: Status: Acute Additional A&P Information Catheter associated UTI This was present on admission Urinary retention and recent Jacob catheter placement in the ER Unclear cause of urinary retention, per history there is suspicion for penile strictures, however this still needs to be confirmed. Check US scrotum to estimate prostate size Urine culture grew E. coli which is pansensitive Would use ceftriaxone and normal saline Scheduled to see Dr. Penaloza, will need to move up his appointment to early next week No CVA tenderness CT abdomen did not reveal hydronephrosis Dehydration due to poor p.o. intake Resuscitation with normal saline Acute kidney injury secondary to urinary tension and UTI Catheter is draining urine check with am labs Persistent hematuria: Patient is a smoker with weight loss and night sweats at least 4-5 years. May need evaluation for malignancy with cystoscopy as outpatient Full code Avoid DVT prophylaxis because of hematuria Regular diet Attestations Medical Necessity Statement*: monitoring renal function, urine output Coding Level of Care Code Acute Care Assistant for [facility] Fwd Diagnoses Catheter-associated urinary tract infection T83.511A; N39.0 Indwelling urinary catheter type: indwelling urethral catheter Encounter type: initial encounter UTI (urinary tract infection) N30.01 Urinary tract infection type: acute cystitis Hematuria presence: with hematuria Dehydration E86.0 Urinary retention R33.9
[2020-05-29] VITALS: BP 131/87; PULSE 61; RESP 18; TEMP 36.9; O2SAT 93
[2020-05-29] MEDS: cefTRIAXone 1,000 MG in sodium chloride 0.9% (plus) 50 ML 100 MG IV (03:29)
[2020-05-29 04:00] VITALS: BP 144/80; PULSE 63; RESP 18; TEMP 36.7; O2SAT 91
[2020-05-29 05:30] LABS: Basophils # 0.1 10^3/uL (0.0-0.1); Basophils % 0.6 %; Eosinophils # 0.2 10^3/uL (0.0-0.8); Eosinophils % 1.8 %; Hemoglobin 12.1 g/dL (11.7-16.6); Lymphocytes # 3.4 10^3/uL (0.8-4.8); Lymphocytes % 38.5 %; Mean Corpuscular HGB Conc 32.7 g/dL (30.0-36.0); Mean Corpuscular Hemoglobin 30.4 pg (28.0-34.0); Mean Platelet Volume 9.7 fL (7.4-10.4); Monocytes # 0.5 10^3/uL (0.2-0.9); Monocytes % 6.1 %; Neutrophils # 4.6 10^3/uL (1.8-7.7); Neutrophils % 52.9 %; Nucleated Red Blood Cells % 0 %; Platelet Count 283 10^3/cmm (130-400); Red Blood Count 3.98 10^6/uL (4.1-5.3); Red Cell Distribution Width 13.8 % (12.1-15.1); White Blood Count 8.8 10^3/uL (4.0-10.0)
[2020-05-29 06:02] LABS: Blood Urea Nitrogen 14 mg/dL (8-23); Calcium 8.7 mg/dL (8.5-10.5); Carbon Dioxide 25 mmol/L (22-29); Chloride 106 mmol/L (98-107); Creatinine Clr Calc Pharmacy 92.3515; Glomerular Filtration Rate 112.8 mL/min (90-130); Glucose 96 mg/dL (65-115); Osmolality Calculated 286 mOsm/kg (285-295); Sodium 140 mmol/L (136-145)
--- NOTE | 2020-05-29 06:23 | ED_ITS ---
HPI - Male Genitourinary General: Chief complaint: Urogenital-Male Stated complaint: CATH PROBLEMS Time Seen by Provider: 05/27/20 23:45 History of Present Illness: HPI Narrative: 64-year-old male with his fourth visit to the emergency department for urinary symptoms. This patient had a catheter placed, and then followed up with urology. He noticed that his catheter stopped draining urine, and he became more uncomfortable in terms of abdominal pain. He complained of concern fever. He has been vomiting is medications as well as liquids at home. MD Complaint: other (Pelvic pain) Onset (ago): day(s) Duration: constant Location: penis and abdomen Radiation: abdomen Severity: moderate Quality: aching Relieving factors: urination Associated symptoms: Reports dysuria, hematuria, nausea and vomiting Review of Systems Const: Reports: fever(s); Denies: chills Eyes: Denies: change in vision or blurry vision ENMT: Denies: dental pain, change in hearing, epistaxis, post nasal drip or sinus pain Card: Reports: edema and swelling of feet/ankles; Denies: chest pain, palpitations or orthopnea Resp: Denies: dyspnea or wheezing GI: Reports: abdominal pain, nausea and vomiting; Denies: rectal pain or melena : Reports: difficulty urinating, dysuria and hematuria Musc: Reports: back pain; Denies: neck pain Skin/Breast: Denies: rash, pruritus or erythema Neuro: Denies: headache(s) or dizziness Psych: Denies: anxiety PFSH ED PFSH: Medical History Anterior chest wall pain Chronic indwelling Jacob catheter Foot pain Gout Urethral stricture Urinary retention UTI (urinary tract infection) Surgical History History of appendectomy Family History Denies family history of Hyperlipidemia Hypertension Social History Smoking and tobacco status: current some day smoker cigarettes Packs smoked per day: 1 Alcohol intake: current Alcohol intake frequency: holidays/special occasions only Household members: spouse Marital status: Current occupational status: retired Physical Exam Const: GENERAL APPEARANCE: well developed ORIENTATION/CONSCIOUSNESS: Yes oriented to person, Yes oriented to place and Yes oriented to time HENMT: COMMON NORMALS: normocephalic, external ears normal and Normal external nose present HEAD & SCALP: normocephalic FACE & SINUS: normal facial exam NOSE: Normal external nose present and No nasal discharge present EXTERNAL EAR: Yes external ears normal MOUTH: tongue normal Eye: COMMON NORMALS: Equal, round and reactive pupils present, EOMs intact crystal aterally and conjunctivae normal EYELID: eyelids normal CONJUNCTIVA: Yes conjunctivae normal PUPIL: Yes Equal, round and reactive pupils present Neck/C-Spine: GENERAL: No tracheal deviation Chest: COMMONS NORMALS: normal inspection of the chest CHEST: No tenderness Resp: COMMON NORMALS: clear to auscultation bilaterally EFFORT & INSPECTION: No tachypneic, No respiratory distress, No retractions, No uses accessory muscles and No tracheal deviation AUSCULTATION: clear to auscultation bilaterally, no rhonchi, no wheezes and lung sounds not diminished Cardio: COMMON NORMALS: regular rate and regular rhythm RATE: regular rate RHYTHM: regular rhythm HEART SOUNDS: no murmurs PERIPHERAL PULSES: ra dial pulses present GI: INSPECTION: No abdominal distension AUSCULTATION: No Hyperactive bowel sounds present and No Hypoactive bowel sounds present PALPATION: Yes Tenderness to palpation present (GI) (Suprapubic), No Guarding due to palpation present (GI) and No Rigid due to palpation PERCUSSION: no dullness to percuss ion and no tympanic to percussion : COMMON NORMALS: Yes no CVA tenderness BLADDER/KIDNEY EXAM: Yes no CVA tenderness Back/Pelvis: COMMON NORMALS: no CVA tenderness Neuro: SENSORIUM/ORIENTATION: Yes oriented to person, Yes oriented to place and Yes oriented to time Psych: COMMON NORMALS: mental status grossly normal Skin: COMMON NORMALS: no rashes or lesions noted GENERAL SKIN EXAM: no rashes or lesions noted Course Consultations: Consultation #1: [email or web address] Vital Signs: Vital signs: Vital Signs Temperature 98.1 F 05/29/20 04:00 Pulse Rate 63 05/29/20 04:00 Respiratory Rate 18 05/29/20 04:00 Blood Pressure 144/80 05/29/20 04:00 Pulse Oximetry 91 05/29/20 04:00 MDM - Male 2 MDM Narrative: Medical decision making narrative: 64-year-old male with continued pelvic discomfort and decreased output into his Jacob bag. The concern was for significant urinary retention. Bedside ultrasound did not reveal a distended bladder. CT was ordered, and she had significant nonspecific bowel wall thickening consistent with infection. The patient is now vomiting is medication at home. He had a significant bump in his creatinine. He will come in for IV fluid support and IV antibiotics. Lab Data: Labs: Lab Results 05/27/20 05/27/20 05/27/20 Range/Units 22:36 22:36 22:36 WBC 12.0 H (4.0-10.0) 10^3/ uL RBC 4.30 (4.1-5.3) 10^6/u L Hgb 12.9 (11.7-16.6) g/dL Hct 40.3 L (42.0-52.0) % MCV 93.7 (80-94) fL MCH 30.0 (28.0-34.0) pg MCHC 32.0 (30.0-36.0) g/dL RDW 13.9 (12.1-15.1) % Plt Count 324 (130-400) 10^3/c mm MPV 9.8 (7.4-10.4) fL Neut % (Auto) 68.1 % Lymph % (Auto) 25.7 % Cowley % (Auto) 5.3 % Eos % (Auto) 0.2 % Baso % (Auto) 0.3 % Neut # (Auto) 8.2 H (1.8-7.7) 10^3/u L Lymph # (Auto) 3.1 (0.8-4.8) 10^3/u L Cowley # (Auto) 0.6 (0.2-0.9) 10^3/u L Eos # (Auto) 0.0 (0.0-0.8) 10^3/u L Baso # (Auto) 0.0 (0.0-0.1) 10^3/u L Nucleated RBC % (a uto) 0 % Nucleated RBCs # 0.0 /100WBC Sodium 139 (136-145) mmol/L Potassium 4.8 (3.5-5.1) mmol/L Chloride 102 (98-107) mmol/L Carbon Dioxide 27 (22-29) mmol/L Anion Gap 14.8 (5-19) BUN 20 (8-23) mg/dL Creatinine 1.4 H (0.7-1.2) mg/dL GFR Calculation 50.7 L (90-130) mL/min Glucose 145 H (65-115) mg/dL Calculated Osmolal ity 287 (285-295) mOsm/k g Calcium 9.9 (8.5-10.5) mg/dL Total Bilirubin 0.4 (0.15-1.2) mg/dL AST 36 (0-40) U/L ALT 49 H (0-41) U/L Alkaline Phosphata se 78 (40-130) IU/L Total Protein 7.6 (6.6-8.7) g/dL Albumin 4.1 (3.5-5.2) g/dL Globulin 3.5 (1.3-4.6) g/dL Prostate Specific Ag 1.280 (0-4) ng/mL Urine Color (Yellow) Urine Appearance (CLEAR) Urine pH (5-7) Ur Specific Gravit y (1.005-1.030) Urine Protein (Negative) Urine Glucose (UA) (Normal) Urine Ketones (Negative) Urine Blood (Negative) Urine Nitrate (Negative) Urine Bilirubin (NEGATIVE) Urine Urobilinogen (Negative) mg/dL Ur Leukocyte Giulia ase (Negative) Urine RBC (0-2) /hpf Urine WBC (0-5) /hpf Ur Squamous Epith Cells (0-5) Ur Transition Epit h Cell /hpf Calcium Oxalate Cr ystal /hpf Amorphous Sediment Urine Bacteria (NONE) Hyaline Casts 05/28/20 Range/Units 00:17 WBC (4.0-10.0) 10^3/ uL RBC (4.1-5.3) 10^6/u L Hgb (11.7-16.6) g/dL Hct (42.0-52.0) % MCV (80-94) fL MCH (28.0-34.0) pg MCHC (30.0-36.0) g/dL RDW (12.1-15.1) % Plt Count (130-400) 10^3/c mm MPV (7.4-10.4) fL Neut % (Auto) % Lymph % (Auto) % Cowley % (Auto) % Eos % (Auto) % Baso % (Auto) % Neut # (Auto) (1.8-7.7) 10^3/u L Lymph # (Auto) (0.8-4.8) 10^3/u L Cowley # (Auto) (0.2-0.9) 10^3/u L Eos # (Auto) (0.0-0.8) 10^3/u L Baso # (Auto) (0.0-0.1) 10^3/u L Nucleated RBC % (a uto) % Nucleated RBCs # /100WBC Sodium (136-145) mmol/L Potassium (3.5-5.1) mmol/L Chloride (98-107) mmol/L Carbon Dioxide (22-29) mmol/L Anion Gap (5-19) BUN (8-23) mg/dL Creatinine (0.7-1.2) mg/dL GFR Calculation (90-130) mL/min Glucose (65-115) mg/dL Calculated Osmolal ity (285-295) mOsm/k g Calcium (8.5-10.5) mg/dL Total Bilirubin (0.15-1.2) mg/dL AST (0-40) U/L ALT (0-41) U/L Alkaline Phosphata se (40-130) IU/L Total Protein (6.6-8.7) g/dL Albumin (3.5-5.2) g/dL Globulin (1.3-4.6) g/dL Prostate Specific Ag (0-4) ng/mL Urine Color Brown (Yellow) Urine Appearance Hazy A (CLEAR) Urine pH 5 (5-7) Ur Specific Gravit y 1.025 (1.005-1.030) Urine Protein 2+ H (Negative) Urine Glucose (UA) Norm (Normal) Urine Ketones 1+ H (Negative) Urine Blood 3+ H (Negative) Urine Nitrate Positive H (Negative) Urine Bilirubin Neg (NEGATIVE) Urine Urobilinogen Norm (Negative) mg/dL Ur Leukocyte Giulia ase Trace H (Negative) Urine RBC 50-80 H (0-2) /hpf Urine WBC 0-4 H (0-5) /hpf Ur Squamous Epith Cells 0-4 H (0-5) Ur Transition Epit h Cell 0-4 /hpf Calcium Oxalate Cr ystal 10-15 H /hpf Amorphous Sediment Not Reportable Urine Bacteria 2+ H (NONE) Hyaline Casts >100 H Discharge Plan Discharge Admit Provider: Adolph Van Discharge Date/Time: 05/28/20 06:16 Coding Level of Care Code ED Miller Supervisor for [facility]rell
[2020-05-29 08:00] VITALS: BP 165/96; PULSE 73; RESP 20; TEMP 36.8; O2SAT 98
[2020-05-29] MEDS: sennosides-docusate Tablet 1 TAB PO (09:57)
--- NOTE | 2020-05-29 11:48 | P.DS_ITS ---
Discharge Providers Date of Admission: 05/28/20 04:07 Date of Discharge: May 29, 2020 Attending Provider at Admission: Adolph Van MD Attending Provider at Discharge: Latisha Pride MD Diagnoses at Discharge Discharge Diagnosis (1) Catheter-associated urinary tract infection: Status: Acute Qualifiers: Indwelling urinary catheter type: indwelling urethral catheter Encounter type: initial encounter Qualified Code(s): T83.511A - Infection and inflammatory reaction due to indwelling urethral catheter, initial encounter; N39.0 - Urinary tract infection, site not specified (2) UTI (urinary tract infection): Status: Acute Qualifiers: Hematuria presence: with hematuria Urinary tract infection type: acute cystitis Qualified Code(s): N30.01 - Acute cystitis with hematuria (3) Dehydration: Status: Acute (4) Urinary retention: Status: Acute Reason for Visit Reason for Visit: CATH PROBLEMS Hospital Course Discharge Summary: Ochoa Vanegas is a 64 year old male who does not carry significant past medical history came in with chief complaint of lower abdominal pain and dysuria. Patient was in usual state of health until 3 weeks ago he started experiencing low urine output, abdominal pain for which he was evaluated in the ER, he had straight catheterization done which relieved his urinary tension, on his second visit catheter was placed because of recurrent urinary retention, he has been evaluated at Dr. Penaloza's clinic, and has received outpatient antibiotics without relief of symptoms. No clear cause for urinary retention is currently established per my understanding. He had ALINA upon current admission with cr up to 1.4, which improved with hydration. Of note he also states that his day bag had not been draining enough urine , however here his urine output is noted to be 3.1L over the last 24 hrs. Alina is now resolved. URine cx is showing GNR, on previous visits noted to be ramon- S E.coli. Final cx needs to be followed. Us scrotum was ordered to estimate prostate size, however there was no comment on the prostate. I was informed today that prostate study would need a rectal probe which is currently N/A. CT does not show any hydronephrosis. This is to be followed up as an outpatient. PSA 1.2. He in anxious to return home. Given that acute issues have currently been resolved, he is being discharged with recommendations to follow up with Dr. Penaloza early next week. 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 deficits Urinary Catheter Management^: Jacob: Cath Placed During This Visit: no Reason for Continuing Indwelling Catheter: Chronic Indwelling Urinary Catheter on Admission Discharge Data Data Completed and Pending: Completed Studies During Hospitalization Category Date Time Status CT kidney stone [id number] Urgent Cat Scan 05/28/20 00:16 Completed US scrotum [id number] Routine Ultrasound 05/29/20 18:22 Completed Pending at discharge Category Date Time Status Urine Culture Sta t Lab 05/28/20 00:17 Results Labs from last 24 hours 05/29/20 05/29/20 05:06 05:06 WBC 8.8 RBC 3.98 L Hgb 12.1 Hct 37.0 L MCV 93.0 MCH 30.4 MCHC 32.7 RDW 13.8 Plt Count 283 MPV 9.7 Neut % (Auto) 52.9 Lymph % (Auto) 38.5 Isabella % (Auto) 6.1 Eos % (Auto) 1.8 Baso % (Auto) 0.6 Neut # (Auto) 4.6 Lymph # (Auto) 3.4 Isabella # (Auto) 0.5 Eos # (Auto) 0.2 Baso # (Auto) 0.1 Nucleated RBC % (a uto) 0 Nucleated RBCs # 0.0 Sodium 140 Potassium 4.0 Chloride 106 Carbon Dioxide 25 Anion Gap 13.0 BUN 14 Creatinine 0.7 GFR Calculation 112.8 Glucose 96 Calculated Osmolal ity 286 Calcium 8.7 Vitals: Last Vital Signs Temp 98.3 F 05/29/20 08:00 Pulse 73 05/29/20 08:00 Resp 20 H 05/29/20 08:00 BP 165/96 05/29/20 08:00 Pulse Ox 98 05/29/20 08:00 Discharge Plan Discharge Patient Disposition: Home, Self-Care Condition: Stable Prescriptions: New tramadol 50 mg tablet 50 mg PO Q8H PRN (Reason: pain) 7 Days Qty: 20 RF: 0 cefadroxil 500 mg capsule 500 mg PO BID 5 Days Qty: 10 RF: 0 Continued tamsulosin 0.4 mg capsule 0.4 mg PO .at bedtime Qty: 30 RF: 6 Discontinued ibuprofen 200 mg capsule 600 mg PO Q6H PRNRF: 0 Discharge Orders: Discharge Order (Routine); Ordered 05/29/20 Ordered By: Latisha Pride Referrals: Deonte Penaloza MD [Physician] - 1-3 days (post hospital discharge follow up for ALINA. has appt in 2 weeks- please see earlier this week if possible ) Discharge Attestations Time Spent in Discharge Care*: less than 30 min Quality Metrics Clinical Quality Measures During this hospital stay, did patient experience: None Coding Level of Care Code Acute Motorboat Mechanic Inboard/Outboard for Chg Fwd Diagnoses Catheter-associated urinary tract infection T83.511A; N39.0 Indwelling urinary catheter type: indwelling urethral catheter Encounter type: initial encounter UTI (urinary tract infection) N30.01 Hematuria presence: with hematuria Urinary tract infection type: acute cystitis Dehydration E86.0 Urinary retention R33.9
[2020-05-29 12:35] VITALS: BP 165/96; PULSE 73; RESP 20; TEMP 36.8; O2SAT 98
--- NOTE | 2020-05-29 18:22 | USR_ITS ---
PROCEDURE INFORMATION: Exam: US Scrotum Exam date and time: 05/29/2020 8:58 AM Age: 64 years old Clinical indication: Scrotum pain; Additional info: Estimate prostate size TECHNIQUE: Imaging protocol: Real-time ultrasound of the scrotum and contents with color Doppler and image documentation. COMPARISON: No relevant prior studies available. FINDINGS: Right testicle: 3.8 x 2.2 x 2.7 cm. No mass. No torsion. Normal vascular flow. The arterial resistive index is 0.74. Left testicle: 3.9 x 2.0 x 2.8 cm. No mass. No torsion. Normal vascular flow. The arterial resistive index is 0.61. Epididymides: Right epididymis 12.6 mm. Left epididymis 12.8 mm. Scrotum: Minimal right anechoic hydrocele. Other findings: The prostate gland was not imaged. US/US scrotum [id number] IMPRESSION: Minimal right anechoic hydrocele.
== END 2020-05-29 12:36 | disposition home or self-care (01) ==
LOC: ER 23:45 → MEDSURG 05-28 04:54
PROVIDERS: Nurse Practitioner Family; Admitting Provider Internal Medicine; Emergency Provider Emergency Medicine; Visit Provider Student in an Organized Health Care Education/Training Program
DX: N30.01 Acute cystitis with hematuria (principal); E86.0 Dehydration; R33.9 Retention of urine, unspecified; N40.0 Benign prostatic hyperplasia without lower urinary tract symptoms; T83.511A Infection and inflammatory reaction due to indwelling urethral catheter, initial encounter; N50.82 Scrotal pain; N43.3 Hydrocele, unspecified
CPT/HCPCS: 12345; 36415; 74176; 76870; 80048; 80053; 81001; 81003; 84153; 85025; 87077; 87086; 87186; 96361; 96365; 99283; 99285; G0378; J0696; J7030

== ENCOUNTER → 2020-09-07 08:16 | Outpatient (BNVA) | payer MEDICARE, SELFPAY | PROVIDERS: PCP Family Medicine; Visit Provider Urology | DX: N40.1 Benign prostatic hyperplasia with lower urinary tract symptoms (principal); N99.115 Postprocedural fossa navicularis urethral stricture | CPT/HCPCS: 81001; 84153 ==

== ENCOUNTER 2020-09-12 14:04 | Emergency (ER) | payer MEDICARE, SELFPAY ==
[2020-09-12 14:23] VITALS: BP 143/89; PULSE 69; RESP 16; TEMP 36.7; O2SAT 97; BMI 27.3
--- NOTE | 2020-09-12 15:38 | USCV_ITS ---
Ochoa Vanegas Age: 64 Gender: M : 1955 Exam Date: 09/12/2020 15:52 Ordering Phys: Bob Rodriguez DO Technologist: Christiano Gonzalez Exam Location: [facility] [place] Indication: pain HISTORY: Lower extremity pain. PROCEDURES: Venous duplex imaging was performed in only the left lower extremity. The following venous structures were evaluated: common femoral vein, profunda vein, proximal portion of the greater saphenous vein, superficial femoral vein, and the popliteal vein. In addition, the posterior tibial and peroneal trunk were evaluated. Serial compression, augmentation maneuvers, and spectral Doppler flow evaluation were performed. FINDINGS: Normal 2-D Doppler and augmentation and compressibility throughout the lower extremity venous structures. Additional imaging through the proximal calf veins also reveals no thrombus. Limited evaluation of the greater saphenous vein is patent with no thrombus.. CONCLUSIONS No evidence of left lower extremity DVT. Bethel Brewer MD (Electronically Signed) Final Date: 12 September 2020 17:33 S
--- NOTE | 2020-09-12 16:40 | ED_ITS ---
HPI - Extremity Problem General: Chief complaint: Extremity Problem,Nontraumatic Stated complaint: Pain in left leg Time Seen by Provider: 09/12/20 16:33 History of Present Illness: HPI Narrative: 64-year-old male presents emergency room complaining of discomfort in his lower leg medially reveals a palpable knot. He also notices that for the last 4 months he has had problems with dorsiflexion. He has pain when he walks it radiates down the lateral aspect of his leg through his lower leg into his foot this is been going on for 4 months and has not significantly changed although he has noticed a foot drop now. He has not been seen for by his primary care doctor. He has not had any urinary retention or fecal incontinence. He has had some bladder infections but he has been treated with antibiotics for those and they have resolved. One time in April he required a catheter placement but he has not since then. He denies any urinary incontinence. MD Complaint: extremity pain and extremity swelling Onset (ago): day(s) Pain Consistency: constant Location: left and lower extremity Quality: aching Radiation: none Relieving factors: nothing Exacerbating factors: nothing Associated symptoms: Deny arthralgias, chest pain, fever(s), myalgias, rash or short of breath Review of Systems Const: Denies: fever(s) ENMT: Denies: throat pain, ear or mastoid pain, nasal discharge or nasal congestion Card: Denies: chest pain Resp: Denies: dyspnea, productive cough or non-productive cough GI: Denies: abdominal pain, nausea, vomiting, hematemesis, coffee ground emesis, diarrhea, constipation, bloating, hematochezia or melena : Denies: flank pain, dysuria, urinary frequency or urinary urgency Skin/Breast: Denies: rash PFSH ED PFSH: Medical History Anterior chest wall pain Chronic indwelling Jacob catheter Foot pain Gout Urinary retention UTI (urinary tract infection) Surgical History History of appendectomy Family History Denies family history of Hyperlipidemia Hypertension Social History (Reviewed 09/12/20 @ 16:43 by ROSALINDA Orellana Smoking and tobacco status: current some day smoker cigarettes Packs smoked per day: 1 Alcohol intake: current Alcohol intake frequency: holidays/special occasions only Household members: spouse Marital status: Current occupational status: retired Physical Exam Const: COMMON NORMALS: no acute distress GENERAL APPEARANCE: cooperative and comfortable ORIENTATION/CONSCIOUSNESS: Yes awake, Yes oriented to person, Yes oriented to place and Yes oriented to time HENMT: COMMON NORMALS: normocephalic, atraumatic and hearing grossly normal bilaterally HEAD & SCALP: normocephalic and atraumatic Neck/C-Spine: COMMON NORMALS: no JVD Resp: COMMON NORMALS: normal respiratory effort, No retractions, No use of accessory muscles and clear to auscultation bilaterally AUSCULTATION: clear to auscultation bilaterally Cardio: COMMON NORMALS: no JVD, regular rate, regular rhythm and No murmurs present (Cardio) RATE: regular rate RHYTHM: regular rhythm GI: COMMON NORMALS: Soft to palpation and No hepatosplenomegaly present AUSCULTATION: Yes normoactive bowel sounds PALPATION: Yes Soft to palpation, No Tenderness to palpation present (GI), No Guarding due to palpation present (GI) and Yes No hepatosplenomegaly present Extremity: COMMON NORMALS: normal to inspection, capillary refill normal, no clubbing, cyanosis or edema, no calf tenderness and no pedal edema Neuro: SENSORIUM/ORIENTATION: Yes oriented to person, Yes oriented to place and Yes oriented to time MOTOR EXAM: Other motor observations present (Loss of ability to dorsiflex left foot with flexion of the ankle.) DEEP TENDON REFLEXES: Right patellar reflex intensity grade: 2+, Left patellar reflex intensity grade: 1+, Right ankle reflex intensity grade: 1+ and Left ankle reflex intensity grade: 1+ Skin: COMMON NORMALS: no rashes or lesions noted GENERAL SKIN EXAM: no rashes or lesions noted Course Vital Signs: Vital signs: Vital Signs Temperature 98.1 F 09/12/20 14:23 Pulse Rate 69 09/12/20 14:23 Respiratory Rate 16 09/12/20 14:23 Blood Pressure 143/89 09/12/20 14:23 Pulse Oximetry 97 09/12/20 14:23 MDM - Extremity (Nontraumatic) MDM Narrative: Medical decision making narrative: Went back to the room to discuss the ultrasound findings with the patient. He was not in the room checked with his nurse he had left to the emergency room department of his own volition and not notified us. I had discussed with him on exam he had a pretty significant foot drop and symptoms that sound like dermatomal L4-5 nerve root pain and discomfort in the left leg he probably does need to get an MRI as follow-up and I discussed this with him after exam. Unfortunately was not able to talk to him before he left. We will try to contact him via phone to review his discharge instructions. Discharge Plan Discharge Patient Disposition: Home Clinical Impression: Lumbar radiculopathy Condition: Stable Prescriptions: No Action tamsulosin 0.4 mg capsule 0.4 mg PO .at bedtime Qty: 30 RF: 6 Discharge Orders: Discharge Order (Routine); Ordered 09/12/20 Ordered By: Bob Rodriguez Referrals: Dillon Bermudez DO [Primary Care Provider] - Discharge Diet: Usual diet Discharge Activity: Increase activity as tolerated Activity Restrictions/Additional Instructions: For your primary care doctor to consider advanced imaging for potential nerve root compression. Discharge Date/Time: 09/12/20 18:07 Coding Level of Care Code ED Electromechanical Inspector for Chg Fwd Exam Comprehensive
== END 2020-09-12 18:07 | disposition home or self-care (01) ==
PROVIDERS: Emergency Provider Family Medicine; PCP Family Medicine
DX: M54.16 Radiculopathy, lumbar region (principal); F17.210 Nicotine dependence, cigarettes, uncomplicated; M79.605 Pain in left leg
CPT/HCPCS: 12345; 93971; 99281; 99282

== ENCOUNTER → 2020-09-19 09:18 | Outpatient (BNVA) | payer MEDICARE, SELFPAY | PROVIDERS: PCP Family Medicine; Visit Provider Family Medicine | DX: R05 Cough (principal) | CPT/HCPCS: 71046 ==

== ENCOUNTER 2020-09-19 13:02 | Outpatient (CLI) | payer MEDICARE, SELFPAY ==
--- NOTE | 2020-09-19 13:08 | XR_ITS ---
WS: [id number] Exam: XR lumbar spine 2-3V* [id number] Date/Time of Exam: 09/19/2020 1:08 PM Reason For Exam: foot drop Findings: No fracture or dislocation noted. Degenerative vacuum disc at L5-S1. Mild spondylosis. Facet DJD at a ll levels. Degenerative change at the SI joints. XR/XR lumbar spine 2-3V* [id number] IMPRESSION: 1. Moderate degenerative changes. 2. No fracture or malalignment.
== END 2020-09-19 13:03 | disposition home or self-care (01) ==
LOC: RAD 13:06
PROVIDERS: PCP Family Medicine; Visit Provider Family Medicine
DX: M21.379 Foot drop, unspecified foot (principal)
CPT/HCPCS: 72100

== ENCOUNTER 2020-10-11 08:44 | Outpatient (CLI) | payer MEDICARE, SELFPAY ==
--- NOTE | 2020-10-11 08:45 | MR_ITS ---
WS: [id number] MRI LUMBAR SPINE NONCONTRAST HISTORY: M21.379 - Foot drop, unspecified foot COMPARISON: 09/19/2020 and lumbar spine radiograph. TECHNIQUE: Sagittal and axial multisequence imaging is submitted. Mild increase in the thoracic kyphosis. Mild anterior wedging of T6, T7, T8 and T9. No marrow edema. Normal lumbar alignment. There is a small amount of marrow edema in the adjacent endplates of L5 and S1. No fracture. Mild disc space narrowing and desiccation throughout the lumbar spine. Conus terminates normally at L1-2 disc level. L1-L2: Mild bilateral foraminal narrowing. No significant stenosis. L2-L3: Moderate bilateral foraminal narrowing, slightly greater on the LEFT than the RIGHT. L3-L4: Moderate diffuse annular disc bulging. Ligamentum flavum hypertrophy is mild. There is severe central, subarticular recess and foraminal stenosis. L4-L5: Diffuse annular disc bulging and mild osteophytic ridging. Mild central stenosis with moderate bilateral foraminal stenosis, LEFT greater than RIGHT. L5-S1: Mild annular disc bulging. Central disc protrusion and severe facet joint arthritis. There is severe bilateral foraminal stenosis with complete effacement of fat. Mild ectasia of the abdominal aorta. MR/MR lumbar spine wo con* [id number] IMPRESSION: 1. Severe bilateral foraminal stenosis at L5-S1 with a shallow central disc pr otrusion. 2. Severe central, bilateral subarticular recess and foraminal stenosis at L3- 4. 3. Mild central with moderate bilateral foraminal stenosis at L4-5. 4. Moderate bilateral foraminal stenosis at L2-3.
== END 2020-10-11 08:45 | disposition home or self-care (01) ==
PROVIDERS: PCP Family Medicine; Visit Provider Family Medicine
DX: M21.379 Foot drop, unspecified foot (principal); M48.061 Spinal stenosis, lumbar region without neurogenic claudication; M48.07 Spinal stenosis, lumbosacral region
CPT/HCPCS: 72148

== ENCOUNTER → 2021-09-07 08:36 | Outpatient (BNVA) | payer MEDICARE, SELFPAY | PROVIDERS: PCP Family Medicine Adult Medicine; Visit Provider Urology | DX: N40.1 Benign prostatic hyperplasia with lower urinary tract symptoms (principal); N99.115 Postprocedural fossa navicularis urethral stricture; R21 Rash and other nonspecific skin eruption | CPT/HCPCS: 81003 ==

== ENCOUNTER 2022-01-01 11:56 | Emergency (ER) | payer MEDICARE, SELFPAY ==
[2022-01-01 12:11] VITALS: BP 116/79; PULSE 89; RESP 18; TEMP 37.7; O2SAT 95; BMI 26.5
--- NOTE | 2022-01-01 12:34 | XR_ITS ---
WS: [id number] XR chest 1V portable [id number] REASON FOR EXAM: productive cough, fever FINDINGS: Moderate tortuosity and ectasia of the thoracic aorta without aneurysmal dilatation. No cardiomegaly. Calcified granulomatous disease in both hemithoraces. Equivocal reticular opacities in the central lower lung and possibly the left lower lung. No significant abnormality of the bony thorax. XR/XR chest 1V portable [id number] IMPRESSION: Equivocal lung abnormalities which could represent an early pneumonitis. Follow -up chest x-ray recommended.
--- NOTE | 2022-01-01 12:35 | ED_ITS ---
HPI - Dental/Oral General: Chief complaint: Dental/Oral Stated complaint: Oral Infection Time Seen by Provider: 01/01/22 12:19 History of Present Illness: Patient is a 66-year-old male who comes to the ED with dental pain, cough and fever. Dental pain started approximately 10 days ag o. Patient only has 2 teeth on his bottom jaw and both of them are painful with some swelling of his gums. He is also having a productive cough as well for for approximately 2 weeks. He has a history of COPD but is not on any oxygen at home. He says he coughs up thick yellow sputum. Reports having a little bit of nausea and a decreased appetite mostly because of the dental pain. He is also h ad an on and off fever for the past week as well. Denies any emesis, chest pain, new shortness of breath, abdominal pain, bladder or bowel symptoms. Patient said he has been smoking for the past 55 years. He stopped smoking approximately 2 weeks ago. Associated symptoms: Reports fever(s); Denies odynophagia Review of Systems Const: Reports: fever(s); Denies: chills or fatigue Eyes: Denies: change in vision or eye discomfort ENMT: Reports: dental pain (lateral incisor on lower jaw); Denies: throat pain, odynophagia, nasal discharge or nasal congestion Card: Denies: chest pain, palpitations, edema, swelling of feet/ankles, dyspnea on exertion or orthopnea Resp: Reports: productive cough; Denies: dyspnea or non-productive cough GI: Denies: abdominal pain, nausea, vomiting, diarrhea, constipation or hematochezia : Denies: flank pain, difficulty urinating, dysuria or hematuria Musc: Denies: neck pain, back pain or extremity swelling Skin/Breast: Denies: rash or new lesions Neuro: Denies: headache(s) PFSH ED PFSH: Medical History Anterior chest wall pain Bilateral leg cramps Chronic indwelling Jacob catheter COPD (chronic obstructive pulmonary disease) Dehydration Epistaxis Foot pain Gout History of TB skin testing Urinary retention UTI (urinary tract infection) Surgical History History of appendectomy Family History Denies family history of Hyperlipidemia Hypertension Social History Smoking and tobacco status: current every day smoker cigarettes Packs smoked per day: 1 Years cigarettes smoked: 54 Alcohol intake: current Alcohol intake frequency: holidays/special occasions o nly Household members: spouse Marital status: Current occupational status: retired Physical Exam Const: COMMON NORMALS: no acute distress, patient oriented x3 and alert GE NERAL APPEARANCE: cooperative and comfortable HENMT: COMMON NORMALS: normocephalic HEAD & SCALP: normocephalic MOUTH: Normal oral and palatal mucosa present TEETH & GINGIVA: Yes abnormal tooth and associated gingiva (2 teeth on bottom jaw-lateral incisors) lower lateral incisor tender and with associated gingival edema THROAT: posterior oropharynx normal and uvula midline Neck/C-Spine: COMMON NORMALS: supple GENERAL: Yes normal visual inspection Resp: COMMON NORMALS: normal respiratory effort, No retractions and No use of accessory muscles AUSCULTATION: diminished lung sounds bilateral in the lower lung dodd Cardio: COMMON NORMALS: regular rate, regular rhythm, S1 normal heart sound present, S2 normal heart sound present, No gallops present (Cardio), No clicks present (Cardio), No murmurs present (Cardio) and Peripheral pulses 2+ throughout RATE: regular rate RHYTHM: regular rhythm HEART SOUNDS: S1 normal heart sound present and S2 normal heart sound present PERIPHERAL PULSES: Peripheral pulses 2+ throughout GI: COMMON NORMALS: Normal to inspection, nondistended, normoactive bowel sounds present, Soft to palpation, non-tender and no masses PALPATION: Yes Soft to palpation : COMMON NORMALS: Yes no CVA tenderness BLADDER/KIDNEY EXAM: Yes no CVA tenderness Back/Pelvis: COMMON NORMALS: no CVA tenderness Extremity: COMMON NORMALS: normal to inspection Neuro: COMMON NORMALS: patient oriented x3 and moves all extremities SENSORIUM/ORIENTATION: Yes alert Skin: GENERAL SKIN EXAM: dry skin Course ED course: I talked with patient about his current symptoms and asked if he would like to get tested for COVID-19. Patient says he does not want to be tested for COVID-19. Patient said he has not had the COVID-19 vaccine either and does not plan on getting it. Vital Signs: Vital signs: Vital Signs Temperature 99.8 F H 01/01/22 12:11 Pulse Rate 89 01/01/22 15:10 Respiratory Rate 16 01/01/22 15:10 Blood Pressure 129/87 01/01/22 15:10 Pulse Oximetry 94 01/01/22 15:10 [facility] - Dental/Oral Medical Decision Making Patient is a 66-year-old male who comes to the ED with dental pain. Dental pain started about 10 days ago. He has poor dentition and only has two lateral incisors on his bottom jaw on those of the teeth that are hurting. Patient also complaining of a productive cough for the past 2 weeks. He has a history of COPD and is not on oxygen at home. Reports on and off fevers. Patient does not want to be tested for COVID-19. X-ray of chest shows some early pneumonitis. CBC and CMP were unremarkable and patient does not have an elevated white blood cell count. Patient diagnosed with dental pain and pneumonitis. He was discharged home with prescription for clindamycin, prednisone and an albuterol inhaler. He was told to contact his dentist to get an appointment set up with him as soon as possible to further manage dental pain. He is also told to follow-up with his PCP in the next 3 to 5 days for reevaluation. Return to ED precautions given. Patient asked and agree with plan. Lab Data I reviewed the patient's lab results. : 01/01/22 12:53 01/01/22 12:53 Radiology Impressions Chest X-Ray 01/01/22 12:34 IMPRESSION: Equivocal lung abnormalities which could represent an early pneumonitis. Follow- up chest x-ray recommended. Laboratory Results WBC 7.6 10^3/uL (4.0-10.0) 01/01/22 12:53 RBC 5.36 10^6/uL (4.1-5.3) H 01/01/22 12:53 Hgb 15.5 g/dL (11.7-16.6) 01/01/22 12:53 Hct 46.7 % (42.0-52.0) 01/01/22 12:53 MCV 87.1 fl (80-94) 01/01/22 12:53 MCH 28.9 pg (28.0-34.0) 01/01/22 12:53 MCHC 33.2 g/dL (30.0-36.0) 01/01/22 12:53 RDW 13.2 % (12.1-15.1) 01/01/22 12:53 Plt Count 223 10^3/cmm (130-400) 01/01/22 12:53 MPV 10.2 fL (7.4-10.4) 01/01/22 12:53 Neut % (Auto) 76.7 % 01/01/22 12:53 Lymph % (Auto) 16.1 % 01/01/22 12:53 [place] % (Auto) 6.6 % 01/01/22 12:53 Eos % (Auto) 0.0 % 01/01/22 12:53 Baso % (Auto) 0.1 % 01/01/22 12:53 Neut # (Auto) 5.82 10^3/uL (1.8-7.7) 01/01/22 12:53 Lymph # (Auto) 1.2 10^3/uL (0.8-4.8) 01/01/22 12:53 [place] # (Auto) 0.5 10^3/uL (0.2-0.9) 01/01/22 12:53 Eos # (Auto) 0.0 10^3/uL (0.0-0.8) 01/01/22 12:53 Baso # (Auto) 0.0 10^3/uL (0.0-0.1) 01/01/22 12:53 Nucleated RBC % (auto) 0 % 01/01/22 12:53 Nucleated RBCs # 0.0 /100WBC 01/01/22 12:53 Sodium 134 mmol/L (136-145) L 01/01/22 12:53 Potassium 4.1 mmol/L (3.5-5.1) 01/01/22 12:53 Chloride 99 mmol/L (98-107) 01/01/22 12:53 Carbon Dioxide 21 mmol/L (22-29) L 01/01/22 12:53 Anion Gap 18.1 (5-19) 01/01/22 12:53 BUN 11 mg/dL (8-23) 01/01/22 12:53 Creatinine 0.8 mg/dL (0.7-1.2) 01/01/22 12:53 GFR Calculation 96.1 mL/min (90-130) 01/01/22 12:53 Glucose 103 mg/dL (65-115) 01/01/22 12:53 Calculated Osmolality 278 mOsm/kg (285-295) L 01/01/22 12:53 Calcium 8.9 mg/dL (8.5-10.5) 01/01/22 12:53 Discharge Plan Discharge Patient Disposition: Home Clinical Impression: Pain, dental, Pneumonitis Condition: Stable Prescriptions: New clindamycin HCl 300 mg capsule 300 mg PO Q6H 7 Days Qty: 28 0RF prednisone 20 mg tablet 20 mg PO BID 5 Days Qty: 10 0RF albuterol sulfate 90 mcg/actuation HFA aerosol inhaler 2 inh inhalation Q6H PRN (Reason: shortness of breath or wheezing) Qty: 8.5 0RF No Action guaifenesin 600 mg tablet extended release 12hr 600 mg PO BID Qty: 60 5RF cyclobenzaprine 5 mg tablet 5 mg PO .hs PRN (Reason: muscle spasm) Qty: 30 5RF tumeric PO DAILY 0RF lutein 20 mg capsule 20 mg PO DAILY 0RF Rx Instructions: give with meal/snack tamsulosin 0.4 mg capsule See Rx Instructions .ROUTE .COMPLEX Qty: 30 12RF Dose Instruction: Take 1 capsule by mouth once daily at bedtime Rx Instructions: Take 1 capsule by mouth once daily at bedtime Discharge Orders: Discharge ED (Routine); Ordered 01/01/22 Ordered By: Anthony Rouse Referrals: Luis Dwyer MD [Primary Care Provider] - Discharge Diet: Regular Discharge Activity: Resume usual activity Patient Instructions: Dental Caries (Cavities), Pneumonitis (ED), Dental Abscess (ED) Activity Restrictions/Additional Instructions: Follow-up with medical provider as directed in the next 3 to 5 days for reevaluation. Contact your dentist and get set up with an appointment with them as soon as possible to have your dental pain further evaluated. Take medications as prescribed. Return to the ER or your medical provider if condition worsens. Please read and understand discharge instructions. Thank you for choosing [facility] for your healthcare needs today. Please realize this is an emergency room and that we are providing you with a medical screening exam and this may not be complete and all inclusive of all the testing and or work up that you may need to determine your ailment or severity of your illness. It is very important that you follow up as instructed or that you return to the Emergency Department should you have concerns or if your condition changes or worsens in any way. Coding Level of Care Code ED Payroll Director for Tae Farrell Exam Comprehensive
[2022-01-01] MEDS: clindamycin 150 mg Capsule 300 MG PO (12:51)
[2022-01-01 13:10] LABS: Basophils % 0.1 %; Hematocrit 46.7 % (42.0-52.0); Hemoglobin 15.5 g/dL (11.7-16.6); Lymphocytes # 1.2 10^3/uL (0.8-4.8); Lymphocytes % 16.1 %; Mean Corpuscular HGB Conc 33.2 g/dL (30.0-36.0); Mean Corpuscular Hemoglobin 28.9 pg (28.0-34.0); Mean Corpuscular Volume 87.1 fl (80-94); Mean Platelet Volume 10.2 fL (7.4-10.4); Monocytes # 0.5 10^3/uL (0.2-0.9); Monocytes % 6.6 %; Neutrophils # 5.82 10^3/uL (1.8-7.7); Neutrophils % 76.7 %; Nucleated Red Blood Cells % 0 %; Platelet Count 223 10^3/cmm (130-400); Red Blood Count 5.36 10^6/uL (4.1-5.3); Red Cell Distribution Width 13.2 % (12.1-15.1); White Blood Count 7.6 10^3/uL (4.0-10.0)
[2022-01-01 13:51] LABS: Anion Gap 18.1 (5-19); Blood Urea Nitrogen 11 mg/dL (8-23); Calcium 8.9 mg/dL (8.5-10.5); Carbon Dioxide 21 mmol/L (22-29); Chloride 99 mmol/L (98-107); Glomerular Filtration Rate 96.1 mL/min (90-130); Glucose 103 mg/dL (65-115); Osmolality Calculated 278 mOsm/kg (285-295); Potassium 4.1 mmol/L (3.5-5.1); Sodium 134 mmol/L (136-145)
[2022-01-01 14:22] LABS: Slide Review Slide Review Perform
[2022-01-01 15:10] VITALS: BP 129/87; PULSE 89; RESP 16; O2SAT 94
== END 2022-01-01 15:11 | disposition home or self-care (01) ==
PROVIDERS: Emergency Provider Physician Assistant; PCP Family Medicine Adult Medicine
DX: K08.89 Other specified disorders of teeth and supporting structures (principal); J18.9 Pneumonia, unspecified organism; J44.9 Chronic obstructive pulmonary disease, unspecified; F17.210 Nicotine dependence, cigarettes, uncomplicated
CPT/HCPCS: 71045; 80048; 85025; 99283

== ENCOUNTER 2022-02-02 08:05 | Emergency (ER) | payer MEDICARE, SELFPAY ==
[2022-02-02 08:11] VITALS: BP 183/118; PULSE 81; RESP 18; TEMP 36.6; O2SAT 94; BMI 26.6
--- NOTE | 2022-02-02 08:18 | ED_ITS ---
HPI - Allergic Reaction General: Chief complaint: Eye Problems Stated complaint: Both eyes are swollen, cant see out of too well Time Seen by Provider: 02/02/22 08:13 Source: patient Mode of arrival: ambulatory Limitations: no limitations History of Present Illness: HPI narrative: 66-year-old male was cutting treated wood began to get facial swelling watery eyes. Feels like he has something in the left eye. He has had similar reaction in the past but this is more severe he denies any difficulty with speech or swallowing denies any difficulty breathing no chest pain. MD complaint: allergic reaction and facial swelling Onset (ago): minute(s) Exposure: other Associated symptoms: Reports no associated symptoms, facial swelling, itching and lip swelling; Deny abdominal pain, difficulty breathing, dysphagia, dizziness, hoarseness, nausea, rash, tongue swelling or vomiting Severity: moderate Treatment prior to arrival: none Previous Allergic Reaction History: none Review of Systems Const: Denies: fever(s), chills, body aches, change in appetite, fatigue or malaise ENMT: Denies: hoarseness Card: Denies: chest pain, edema, dyspnea on exertion or orthopnea Resp: Denies: dyspnea, productive cough or non-productive cough GI: Denies: abdominal pain, nausea, vomiting or dysphagia : Denies: flank pain, dysuria, urinary frequency or urinary urgency Skin/Breast: Denies: rash or pruritus Neuro: Denies: dizziness All/Imm: Reports: facial swelling; Denies: tongue swelling PFSH ED PFSH: Medical History Anterior chest wall pain Bilateral leg cramps Chronic indwelling Jacob catheter COPD (chronic obstructive pulmonary disease) Dehydration Epistaxis Foot pain Gout History of TB skin testing Urinary retention UTI (urinary tract infection) Surgical History History of appendectomy Family History Denies family history of Hyperlipidemia Hypertension Social History Smoking and tobacco status: current every day smoker cigarettes Packs smoked per day: 1 Years cigarettes smoked: 54 Alcohol intake: current Alcohol intake frequency: holidays/special occasions only Household members: spouse Marital status: Current occupational status: retired Physical Exam Const: COMMON NORMALS: no acute distress GENERAL APPEARANCE: cooperative and comfortable ORIENTATION/CONSCIOUSNESS: Yes awake, Yes oriented to person, Yes oriented to place and Yes oriented to time HENMT: COMMON NORMALS: normocephalic, atraumatic, hearing grossly normal bilaterally, external ears normal, Normal nasal mucous membranes and turbinates present, moist oral mucous membranes and oropharynx normal HEAD & SCALP: normocephalic and atraumatic NOSE: Normal nasal mucous membranes and turbinates present EXTERNAL EAR: Yes external ears normal Eye: COMMON NORMALS: Equal, round and reactive pupils present, EOMs intact bilaterally, conjunctivae normal and no scleral icterus CONJUNCTIVA: Yes conjunctivae normal PUPIL: Yes Equal, round and reactive pupils present OTHER: Large amount of swelling of the face and eyelids. He can still open his eyes and can still visualize the pupil and sclera Examination the eye under fluorescein after anesthesia with topical tetracaine no evidence of corneal abrasion or injury. Neck/C-Spine: COMMON NORMALS: full ROM, no lymphadenopathy, supple and no JVD Resp: COMMON NORMALS: normal respiratory effort, No retractions, No use of accessory muscles and clear to auscultation bilaterally AUSCULTATION: clear to auscultation bilaterally Cardio: COMMON NORMALS: no JVD, regular rate, regular rhythm and No murmurs present (Cardio) RATE: regular rate RHYTHM: regular rhythm GI: COMMON NORMALS: Soft to palpation and No hepatosplenomegaly present AUSCULTATION: Yes normoactive bowel sounds PALPATION: Yes Soft to palpation, No Tenderness to palpation present (GI), No Guarding due to palpation present (GI) and Yes No hepatosplenomegaly present Extremity: COMMON NORMALS: normal to inspection, capillary refill normal, no clubbing, cyanosis or edema, no calf tenderness and no pedal edema Neuro: SENSORIUM/ORIENTATION: Yes oriented to person, Yes oriented to place and Yes oriented to time Skin: COMMON NORMALS: no rashes or lesions noted GENERAL SKIN EXAM: no rashes or lesions noted Course Vital Signs: Vital signs: Vital Signs Temperature 97.9 F 02/02/22 08:11 Pulse Rate 66 02/02/22 09:58 Respiratory Rate 18 02/02/22 08:11 Blood Pressure 169/108 02/02/22 09:58 Pulse Oximetry 96 02/02/22 09:58 MDM - Allergic Reaction Medical Decision Making Symptoms have abated. Patient is feeling much better he can see out of his eyes patient was given H2 blockers antihistamines and steroids. Will obtain difficulty breathing. Discharged home on prednisone taper and antihistamines follow-up as needed avoid recurrent exposures. Discharge Plan Discharge Patient Disposition: Home Clinical Impression: Allergic reaction Condition: Stable Prescriptions: New prednisone 20 mg tablet 20 mg PO TID Qty: 15 0RF Rx Instructions: 1 p.o. 3 times daily x3 days, 1 p.o. twice daily x2 days, 1 p.o. daily x2 days No Action lutein 20 mg capsule 20 mg PO DAILY 0RF Rx Instructions: give with meal/snack turmeric 400 mg Capsule 400 mg PO DAILY 0RF tamsulosin 0.4 mg capsule 0.4 mg PO BEDTIME 0RF albuterol sulfate 90 mcg/actuation HFA aerosol inhaler 2 inh inhalation Q6H PRN (Reason: shortness of breath or wheezing) Qty: 8.5 0RF Discharge Orders: Discharge ED (Routine); Ordered 02/02/22 Ordered By: Bob Rodriguez Referrals: Luis Dwyer MD [Primary Care Provider] - Discharge Diet: Usual diet Discharge Activity: Resume usual activity Patient Instructions: Opioid Safety Activity Restrictions/Additional Instructions: Use [id number] Benadryl 50 mg p.o. every 6 hours as needed along with the steroids. Coding Level of Care Code ED Tobacco Primer Machine Operator for Tae Fwd Exam Comprehensive
[2022-02-02] MEDS: diphenhydrAMINE 50 mg/mL SDV 1mL IVP (08:37)
[2022-02-02] MEDS: famotidine 20 mg/2 mL INJ 40 MG IVP (08:37)
[2022-02-02 09:58] VITALS: BP 169/108; PULSE 66; O2SAT 96
== END 2022-02-02 10:25 | disposition home or self-care (01) ==
PROVIDERS: Emergency Provider Family Medicine; PCP Family Medicine Adult Medicine
DX: T78.40XA Allergy, unspecified, initial encounter (principal); X58.XXXA Exposure to other specified factors, initial encounter; Y93.89 Activity, other specified; J44.9 Chronic obstructive pulmonary disease, unspecified; F17.210 Nicotine dependence, cigarettes, uncomplicated
CPT/HCPCS: 96374; 96375; 99283; J1200; J2930; J3490

== ENCOUNTER 2022-02-11 19:19 | Emergency (ER) | payer MEDICARE, SELFPAY ==
[2022-02-11 19:31] VITALS: BP 176/109; PULSE 82; RESP 16; TEMP 36.9; O2SAT 96; BMI 25.9
--- NOTE | 2022-02-11 21:02 | USR_ITS ---
PROCEDURE INFORMATION: Exam: US Duplex Right Upper Extremity Veins, Limited Exam date and time: 02/11/2022 10:02 PM Age: 66 years old Clinical indication: Pain; Arm, upper; Right; Additional info: Right arm pain and swelling TECHNIQUE: Imaging protocol: Real-time Duplex ultrasound of the Right Upper Extremity with 2-D loera scale, color Doppler flow and spectral waveform analysis with image documentation. Limited exam focused on the right upper extremity veins. COMPARISON: No relevant prior studies available. FINDINGS: Right deep veins: Unremarkable. Axillary and brachial veins are patent throughout without thrombus. Normal Doppler waveforms. Normal compressibility and/or augmentation response. Visualized internal jugular and subclavian veins are patent. Right superficial veins: Unremarkable. Visualized cephalic vein is patent without thrombus. There is thrombus which obstructs the length of the right basilic vein throughout its length in the arm and forearm. Soft tissues: Unremarkable. US/[place] [id number] IMPRESSION: 1. There is thrombosis of the right basilic vein. 2. No thrombosis of the deep veins is identified.
--- NOTE | 2022-02-11 21:28 | PC.NURSE ---
Pt. very anxious and pacing the floor. When I went into the room to do the assessment, the patient met me at the door to show me his arm . Pt. states that his blood pressure usually elevates when he comes to the doctor and also when he is in pain . Pt. states that he does not want any treatment for his blood pressure , due to in the past they treated the blood pressure and it was not needed.
--- NOTE | 2022-02-11 21:33 | W.ED.GENADLT ---
HPI - General Adult General: Chief complaint: General Medical Stated complaint: Rt Arm Swollen Time Seen by Provider: 02/11/22 21:01 History of Present Illness: Patient is a 66-year-old male comes to the ED with right arm pain and swelling. Symptoms started approximately 1 week ago. Patient was seen here in the ED back on February 02 for an allergic reaction and an IV was placed in right arm and he was given meds to treat allergic reaction. Day later after ED visit he started having some bruising pain and swelling in right arm near IV site. The swelling and bruising has improved but patient still has a lot of tenderness to his forearm. Denies any falls or injuries to cause right arm pain and swelling. Patient saw his PCP approximately 5 days ago and they put him on some doxycycline for possible cellulitis. Denies chest Pain, shortness of breath or hemoptysis. No past history of blood clots. He is not on a blood thinner, but does take baby aspirin daily. Associated symptoms: Deny chest pain, dyspnea, headache(s), nausea, rash, palpitations or vomiting Review of Systems Const: Denies: fever(s), chills or fatigue Eyes: Denies: change in vision or eye discomfort ENMT: Denies: throat pain, odynophagia, nasal discharge or nasal congestion Card: Denies: chest pain, palpitations, edema, swelling of feet/ankles, dyspnea on exertion or orthopnea Resp: Denies: dyspnea, productive cough or non-productive cough GI: Denies: abdominal pain, nausea, vomiting, diarrhea, constipation or hematochezia : Denies: flank pain, difficulty urinating, dysuria or hematuria Musc: Reports: extremity pain (right forearm) and extremity swelling (right arm); Denies: neck pain or back pain Skin/Breast: Denies: rash or new lesions Neuro: Denies: headache(s), numbness in extremities or weakness in extremities PFSH ED PFSH: Medical History Anterior chest wall pain Bilateral leg cramps Chronic indwelling Jacob catheter COPD (chronic obstructive pulmonary disease) Dehydration Epistaxis Foot pain Gout History of TB skin 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 Urinary retention UTI (urinary tract infection) Surgical History History of appendectomy Family History Denies family history of Hyperlipidemia Hypertension Social History Smoking and tobacco status: current every day smoker cigarettes Packs smoked per day: 1 Years cigarettes smoked: 54 Alcohol intake: current Alcohol intake frequency: holidays/special occasions only Household members: spouse Marital status: Current occupational status: retired Physical Exam Const: COMMON NORMALS: no acute distress, patient oriented x3 and alert GENERAL APPEARANCE: cooperative and comfortable HENMT: COMMON NORMALS: normocephalic HEAD & SCALP: normocephalic MOUTH: Normal oral and palatal mucosa present THROAT: posterior oropharynx normal and uvula midline Eye: COMMON NORMALS: Equal, round and reactive pupils present PUPIL: Yes Equal, round and reactive pupils present Neck/C-Spine: COMMON NORMALS: supple GENERAL: Yes normal visual inspection Resp: COMMON NORMALS: normal respiratory effort, No retractions, No use of accessory muscles and clear to auscultation bilaterally AUSCULTATION: clear to auscultation bilaterally Cardio: COMMON NORMALS: regular rate, regular rhythm, S1 normal heart sound present, S2 normal heart sound present, No gallops present (Cardio), No clicks present (Cardio), No murmurs present (Cardio) and Peripheral pulses 2+ throughout RATE: regular rate RHYTHM: regular rhythm HEART SOUNDS: S1 normal heart sound present and S2 normal heart sound present PERIPHERAL PULSES: Peripheral pulses 2+ throughout GI: COMMON NORMALS: Normal to inspection, nondistended, normoactive bowel sounds present, Soft to palpation, non-tender and no masses PALPATION: Yes Soft to palpation : COMMON NORMALS: Yes no CVA tenderness BLADDER/KIDNEY EXAM: Yes no CVA tenderness Back/Pelvis: COMMON NORMALS: no CVA tenderness Extremity: NARRATIVE EXTREMITY EXAM: Right forearm?tenderness to palpation but no visible swelling or ecchymosis seen. No erythema or warmth noted. Neuro: COMMON NORMALS: patient oriented x3 and moves all extremities SENSORIUM/ORIENTATION: Yes alert Skin: GENERAL SKIN EXAM: dry skin Course Vital Signs: Vital signs: Vital Signs Temperature 98.4 F 02/11/22 19:31 Pulse Rate 87 02/11/22 23:33 Respiratory Rate 18 02/11/22 23:33 Blood Pressure 160/101 02/11/22 23:33 Pulse Oximetry 99 02/11/22 23:33 MDM - General Adult Medical Decision Making Patient is a 66-year-old male comes to the ED with right arm swelling and pain. Symptoms started a week ago. Patient has no visible swelling noted but does have some right forearm tenderness to palpation. Radial pulse 2+. Vitals are stable. Right upper extremity venous duplex showed a thrombus of the right basilic vein and no thrombus of deep vein identified. Due to risk of the extensiveness of thrombosis of right basilic vein patient was put on Eliquis to treat clot. Patient diagnosed with acute basilic vein thrombosis and was discharged home with a prescription for Eliquis. He was told to follow-up with his PCP in the next week for reevaluation and to further manage blood thinner medication. Return ED precautions given. Patient understood and agreed with plan. Dr. Gonzalez reviewed case and agreed with plan as well. Lab Data Radiology Impressions Venous Duplex 02/11/22 21:02 IMPRESSION: 1. There is thrombosis of the right basilic vein. 2. No thrombosis of the deep veins is identified. ADDENDUM: 02/12/22 0000 Addendum: THIS REPORT CONTAINS FINDINGS THAT MAY BE CRITICAL TO PATIENT CARE. The findings were verbally communicated via telephone conference with JUDITH BAILEY at 11:59 PM CDT on 02/11/2022. The findings were acknowledged and understood. Discharge Plan Discharge Patient Disposition: Home Clinical Impression: Acute basilic vein thrombosis Qualifiers: Laterality: right Qualified Code(s): I82.611 - Acute embolism and thrombosis of superficial veins of right upper extremity Condition: Stable Prescriptions: New apixaban 5 mg tablet 5 mg PO BID Qty: 20 0RF No Action montelukast 10 mg tablet 10 mg PO DAILY Qty: 30 5RF albuterol sulfate 90 mcg/actuation HFA aerosol inhaler 2 inh inhalation Q6H PRN (Reason: shortness of breath or wheezing) Qty: 8.5 5RF Rx Instructions: 340 B medication budesonide-formoterol [Symbicort] 160-4.5 mcg/actuation HFA aerosol inhaler 2 puff inhalation BID Qty: 10.2 5RF Rx Instructions: 340 B medication tamsulosin 0.4 mg capsule 0.4 mg PO BEDTIME Qty: 30 5RF Rx Instructions: 340 B medication doxycycline hyclate 100 mg capsule 100 mg PO BID Qty: 14 0RF lutein 20 mg capsule 20 mg PO DAILY 0RF Rx Instructions: give with meal/snack turmeric 400 mg Capsule 400 mg PO DAILY 0RF Discharge Orders: Discharge ED (Routine); Ordered 02/11/22 Ordered By: Judith Bailey Referrals: Luis Dwyer MD [Primary Care Provider] - Discharge Diet: Regular Discharge Activity: Increase activity as tolerated Patient Instructions: Deep Vein Thrombosis (ED), Opioid Safety, Thrombophlebitis - Superficial Activity Restrictions/Additional Instructions: Follow-up with your PCP within the next week for further management of blood thinner medication. Take medications as prescribed. Return to the ER or your medical provider if condition worsens. Please read and understand discharge instructions. Thank you for choosing [facility] for your healthcare needs today. Please realize this is an emergency room and that we are providing you with a medical screening exam and this may not be complete and all inclusive of all the testing and or work up that you may need to determine your ailment or severity of your illness. It is very important that you follow up as instructed or that you return to the Emergency Department should you have concerns or if your condition changes or worsens in any way. Coding Level of Care Code ED Adjunct Faculty For Medical Terminology for Tae Fwbrionna Exam Comprehensive
[2022-02-11 22:08] VITALS: BP 164/106; PULSE 88; RESP 18; O2SAT 98
[2022-02-11 23:33] VITALS: BP 160/101; PULSE 87; RESP 18; O2SAT 99
[2022-02-11] MEDS: apixaban 5 mg Tablet PO (23:33)
== END 2022-02-11 23:36 | disposition home or self-care (01) ==
PROVIDERS: Emergency Provider Physician Assistant; PCP Family Medicine Adult Medicine
DX: I82.611 Acute embolism and thrombosis of superficial veins of right upper extremity (principal); J44.9 Chronic obstructive pulmonary disease, unspecified; F17.210 Nicotine dependence, cigarettes, uncomplicated
CPT/HCPCS: 93971; 99283

== ENCOUNTER 2022-05-17 15:56 | Outpatient (RCR) | payer MEDICARE, SELFPAY | END 2022-05-24 23:59 | disposition home or self-care (01) | LOC: SPT 15:56 | PROVIDERS: PCP Family Medicine Adult Medicine; Referring Provider Family Medicine Adult Medicine; Visit Provider Family Medicine Adult Medicine | DX: M54.2 Cervicalgia (principal); M25.512 Pain in left shoulder | CPT/HCPCS: 97110; 97161 ==

== ENCOUNTER 2022-05-25 06:00 | Outpatient (RCR) | payer MEDICARE, SELFPAY | END 2022-06-24 23:59 | disposition home or self-care (01) | LOC: SPT 06:00 | PROVIDERS: PCP Family Medicine Adult Medicine; Referring Provider Family Medicine Adult Medicine; Visit Provider Family Medicine Adult Medicine | DX: M54.2 Cervicalgia (principal); M25.512 Pain in left shoulder | CPT/HCPCS: 97110; 97140 ==

== ENCOUNTER 2023-02-06 07:24 | Outpatient (CLI) | payer MEDICARE, SELFPAY ==
--- NOTE | 2023-02-06 08:00 | CT_ITS ---
WS: [id number] LDCT LUNG CANCER SCREENING HISTORY: smoker TECHNIQUE: Axial imaging performed from the apices to 1 cm below the costophrenic angles. Coronal and sagittal reformats are submitted with axial MIP series. All CT scans at [facility] use at least one of these dose optimization techniques: automated exposure control; mA and/or kV adjustment per patient size (includes targeted exams where dose is matched to clinical indication); or iterativ e reconstruction. DLP: 80.91 mGy.cm DIvol: Mean CTDIvol: 1.60 (mGy) COMPARISON: None available. Diagnostic quality: Satisfactory Lungs: Chronic emphysema. RIGHT biapical pleural thickening and scarring. There are 2 nodules at the RIGHT apex. The largest measures 5 mm in diameter. No additional nodule or mass identified. Small pao unt of mucus along the LEFT inferior trachea. Heart: Normal size heart with no pericardial effusion.. Mild coronary artery calcifications. Other findings: Ectatic mildly calcified thoracic aorta. Normal size pulmonary artery. No adenopathy. RIGHT renal cyst 2.0 cm. LEFT adrenal benign adenoma. Low-attenuation 10 mm nodule posterior upper p ole RIGHT kidney is probably a cyst. Hounsfield units are low. Calcification extends into the proxima l SMA. Slight increase in thoracic kyphosis. Mild anterior wedging T6, T7 and T8. CT/CT lung screening [id number] IMPRESSION: LUNG-RADS: 3-Probably Benign FOLLOW UP: 6 Month LDCT OTHER FINDINGS (S MODIFIER): None.
== END 2023-02-06 07:25 | disposition home or self-care (01) ==
LOC: RAD 07:26
PROVIDERS: PCP Family Medicine Adult Medicine; Visit Provider Family Medicine Adult Medicine
DX: Z12.2 Encounter for screening for malignant neoplasm of respiratory organs (principal); F17.200 Nicotine dependence, unspecified, uncomplicated; N40.1 Benign prostatic hyperplasia with lower urinary tract symptoms
CPT/HCPCS: 71271

== ENCOUNTER 2023-04-07 20:56 | Emergency (ER) | payer MEDICARE, SELFPAY ==
[2023-04-07 21:00] VITALS: BP 162/117; PULSE 89; TEMP 36.9; O2SAT 96; BMI 25.8
--- NOTE | 2023-04-07 21:08 | ED_ITS ---
HPI - Extremity Problem General: Chief complaint: Extremity Injury, Lower Stated complaint: right leg lac Time Seen by Provider: 04/07/23 20:56 History of Present Illness: 67-year-old male patient comes in today with laceration to the right lower leg. Patient was unloading the truck with 10 on it and excellently sliced part of his leg when the piece of metal bounced back striking him against the leg. Patient reports last tetanus was 2 years ago. Patient appears nontoxic. Patient denies any other concerns. Associated symptoms: Deny chest pain or fever(s) Review of Systems Const: Denies: fever(s) Card: Denies: chest pain Resp: Denies: dyspnea GI: Denies: nausea Musc: Reports: extremity pain Skin/Breast: Reports: new lesions PFS ED PFSH: Medical History (Updated 04/07/23 @ 21:43 by MARLENY Vera) Allergic rhinitis due to allergen Bilateral leg cramps BPH loc w urin obs/LUTS Chronic indwelling Jacob catheter COPD (chronic obstructive pulmonary disease) Foot pain Gout Hypertension Left shoulder pain Lung nodule seen on imaging study Nasal sinus congestion Postprocedural fossa navicularis urethral stricture Surgical History History of appendectomy Family History Denies family history of Hyperlipidemia Hypertension Social History Smoking and tobacco status: current every day smoker cigarettes Packs smoked per day: 1 Years cigarettes smoked: 54 Alcohol intake: current Alcohol intake frequency: holidays/special occasions only Substance/Drug Use: unknown Household members: spouse Marital status: Current occupational status: retired Physical Exam Const: COMMON NORMALS: alert HENMT: COMMON NORMALS: normocephalic HEAD & SCALP: normocephalic Neck/C-Spine: COMMON NORMALS: full ROM Resp: COMMON NORMALS: normal respiratory effort Cardio: COMMON NORMALS: regular rate RATE: regular rate Extremity: RIGHT LOWER EXTREMITY: Yes lower leg (3 cm laceration right lower leg) Right lower leg: Yes inspection, Yes palpation and Yes neurovascular exam Neuro: SENSORIUM/ORIENTATION: Yes alert Skin: COMMON NORMALS: turgor normal GENERAL SKIN EXAM: turgor normal Procedures Laceration Laceration 1: Site: lower extremity Side (If applicable): right Size (cm): 3 Description: linear Depth: simple, single layer Local Anesthetic: lidocaine 1% Amount of anesthesia used (mL): 4 Pre-repair: wound explored and irrigated extensively Skin layer closed with: nylon Size (cm): 3-0 Number of sutures: 4 Technique: horizontal mattress Course Vital Signs: Vital signs: Vital Signs Temperature 98.4 F 04/07/23 21:00 Pulse Rate 89 04/07/23 21:00 Blood Pressure 162/117 04/07/23 21:00 Pulse Oximetry 96 04/07/23 21:00 Oxygen Delivery Me thod Room Air 04/07/23 21:00 MDM - Extremity (Nontraumatic) Medical Decision Making Patient comes in for injury to the right lower leg. On exam patient has laceration to the distal anterior right lower leg. Linear laceration is approximately 3 cm. Differential diagnosis includes foreign body, fracture, laceration. No sign of fracture is noted. No foreign body is in the wound. Wound was irrigated and cleaned thoroughly. Wound was approximated with sutures. Patient tolerated well. Reviewed postprocedure care with patient and significant other with reported understanding. Discharge Plan Discharge Patient Disposition: Home Clinical Impression: Laceration of lower leg, right Qualifiers: Encounter type: initial encounter Qualified Code(s): S81.811A - Laceration without foreign body, right lower leg, initial encounter Condition: Stable Prescriptions: New amoxicillin-pot clavulanate 875-125 mg tablet 1 tab PO BID Qty: 14 0RF No Action montelukast 10 mg tablet 10 mg PO DAILY Qty: 30 5RF albuterol sulfate 90 mcg/actuation HFA aerosol inhaler 2 inh inhalation Q6H PRN (Reason: shortness of breath or wheezing) Qty: 8.5 5RF Rx Instructions: 340 B medication lutein 20 mg capsule 20 mg PO DAILY Rx Instructions: give with meal/snack budesonide-formoterol [Symbicort] 160-4.5 mcg/actuation HFA aerosol inhaler 2 puff inhalation BID PRN (Reason: breathing) Rx Instructions: 340 B medication fluticasone propionate 50 mcg/actuation spray,suspension 1 spray intranasal BID PRN (Reason: nasal congestion) Qty: 16 1RF Rx Instructions: administer into each nostril loratadine 10 mg tablet 10 mg PO DAILY Qty: 90 1RF lisinopril 20 mg tablet 20 mg PO DAILY Qty: 90 1RF prednisone 20 mg tablet 60 mg PO BID 5 Days Qty: 15 0RF azithromycin 250 mg tablet See Rx Instructions PO .COMPLEX Qty: 6 0RF Rx Instructions: take 500 mg today (day 1), then 250 mg for 4 days (days 2-5) PO albuterol sulfate [Ventolin HFA] 90 mcg/actuation HFA aerosol inhaler 2 puff inhalation Q4H PRN (Reason: shortness of breath or wheezing) Qty: 8.5 0RF tamsulosin 0.4 mg capsule See Rx Instructions .ROUTE .COMPLEX Qty: 90 3RF Dose Instruction: TAKE 1 CAPSULE BY MOUTH EVERY DAY AT BEDTIME FOR PROSTATE MED Rx Instructions: TAKE 1 CAPSULE BY MOUTH EVERY DAY AT BEDTIME FOR PROSTATE MED turmeric 400 mg Capsule 400 mg PO DAILY Discharge Orders: Discharge ED (Routine); Ordered 04/07/23 Ordered By: Madhav Caban Referrals: Luis Dwyer MD [Primary Care Provider] - Discharge Diet: Usual diet Discharge Activity: Increase activity as tolerated Patient Instructions: Laceration (ED) Activity Restrictions/Additional Instructions: Keep wound clean and dry. Is most important keep the wound as dry as possible for the first 48 hours. After that you can gently clean the wound with mild soap and water and apply antibiotic ointment. Use acetaminophen and/or ibuprofen as needed for discomfort. Follow-up with primary care in 1 week. Sutures need to come out in around 10 days. Coding Level of Care Code ED Stretching Machine Operator for Tae Farrell
[2023-04-07] MEDS: amoxicillin-clav 875-125 mg Tablet 1 TAB PO (22:00)
== END 2023-04-07 22:06 | disposition home or self-care (01) ==
PROVIDERS: Emergency Provider Nurse Practitioner Family; PCP Family Medicine Adult Medicine
DX: S81.811A Laceration without foreign body, right lower leg, initial encounter (principal); F17.210 Nicotine dependence, cigarettes, uncomplicated; J44.9 Chronic obstructive pulmonary disease, unspecified; I10 Essential (primary) hypertension; W26.8XXA Contact with other sharp object(s), not elsewhere classified, initial encounter
CPT/HCPCS: 12002; 99283; A6446

== ENCOUNTER 2023-06-25 14:10 | Emergency (ER) | payer MEDICARE, SELFPAY ==
[2023-06-25 14:14] VITALS: BP 170/94; PULSE 78; RESP 14; TEMP 36.4; O2SAT 97; BMI 25.8
--- NOTE | 2023-06-25 14:19 | W.ED.WOUNDLC ---
HPI - Wound/Laceration General: Chief Complaint: Extremity Injury, Upper Stated Complaint: RT forearm lac Time Seen by Provider: 06/25/23 14:19 Source: patient Mode of arrival: ambulatory Limitations: no limitations History of Present Illness: Patient is a nice 67-year-old male who presents to ED today for treatment and evaluation of a right forearm laceration that he sustained just prior to arrival after cutting it on the top of a T post. Patient's tetanus is up-to-date. He denies numbness, tingling, loss of sensation to the extremity. Wound is not bleeding at this time. Onset (ago): hour(s) Extremity Location: Right: forearm Place: home Patient tetanus UTD: Yes Context: accidental Associated symptoms: Reports no associated symptoms Treatments prior to arrival: bandage Review of Systems Musc: Reports: extremity pain (R forearm); Denies: extremity swelling Skin/Breast: Reports: other (laceration) Neuro: Denies: numbness in extremities or sensory changes PFSH ED PFSH: Medical History Allergic rhinitis due to allergen Bilateral leg cramps BPH loc w urin obs/LUTS Chronic indwelling Jacob catheter COPD (chronic obstructive pulmonary disease) Foot pain Gout Hypertension Left shoulder pain Lung nodule seen on imaging study Nasal sinus congestion Postprocedural fossa navicularis urethral stricture Surgical History History of appendectomy Family History Denies family history of Hyperlipidemia Hypertension Social History Smoking and tobacco status: current every day smoker cigarettes Packs smoked per day: 1 Years cigarettes smoked: 54 Alcohol intake: current Alcohol intake frequency: holidays/special occasions only Substance/Drug Use: unknown Household members: spouse Marital status: Current occupational status: retired Physical Exam Const: COMMON NORMALS: no acute distress, average body habitus, patient oriented x3, no limitations, healthy appearing, alert and well nourished Extremity: COMMON NORMALS: full ROM, capillary refill normal and no clubbing, cyanosis or edema GENERAL: Yes normal exam except as noted RIGHT UPPER EXTREMITY: Yes lower arm (6cm dorsal mid forearm laceration w/o bleeding) Right lower arm: Yes neurovascular exam (normal; no tendon involvement ) Neuro: COMMON NORMALS: patient oriented x3, moves all extremities, no focal motor deficits and no sensory deficits noted SENSORIUM/ORIENTATION: Yes alert Skin: TRAUMA: laceration Procedures Laceration Laceration 1: Site: upper extremity Side (If applicable): right Size (cm): 6.0 Description: flap and irregular Depth: simple, single layer Local Anesthetic: lidocaine 1% and with epi Amount of anesthesia used (mL): 5 Pre-repair: wound explored and irrigated extensively Skin layer closed with: nylon Size (cm): 4-0 Number of sutures: 8 Technique: simple, interrupted Course Vital Signs: Vital signs: Vital Signs Temperature 97.5 F L 06/25/23 14:14 Pulse Rate 78 06/25/23 14:14 Respiratory Rate 14 06/25/23 14:14 Blood Pressure 170/94 06/25/23 14:14 Pulse Oximetry 97 06/25/23 14:14 Oxygen Delivery Me thod Room Air 06/25/23 14:14 MDM - Wound/Laceration Medical Decision Making Wound was copiously irrigated and repaired as documented. Wound care/infection precautions discussed. Discharge Plan Discharge Patient Disposition: Home Clinical Impression: Laceration of right forearm Qualifiers: Encounter type: initial encounter Qualified Code(s): S51.811A - Laceration without foreign body of right forearm, initial encounter Condition: Stable Prescriptions: No Action montelukast 10 mg tablet 10 mg PO DAILY Qty: 30 5RF albuterol sulfate 90 mcg/actuation HFA aerosol inhaler 2 inh inhalation Q6H PRN (Reason: shortness of breath or wheezing) Qty: 8.5 5RF Rx Instructions: 340 B medication lutein 20 mg capsule 20 mg PO DAILY Rx Instructions: give with meal/snack budesonide-formoterol [Symbicort] 160-4.5 mcg/actuation HFA aerosol inhaler 2 puff inhalation BID PRN (Reason: breathing) Rx Instructions: 340 B medication fluticasone propionate 50 mcg/actuation spray,suspension 1 spray intranasal BID PRN (Reason: nasal congestion) Qty: 16 1RF Rx Instructions: administer into each nostril loratadine 10 mg tablet 10 mg PO DAILY Qty: 90 1RF lisinopril 20 mg tablet 20 mg PO DAILY Qty: 90 1RF prednisone 20 mg tablet 60 mg PO BID 5 Days Qty: 15 0RF azithromycin 250 mg tablet See Rx Instructions PO .COMPLEX Qty: 6 0RF Rx Instructions: take 500 mg today (day 1), then 250 mg for 4 days (days 2-5) PO albuterol sulfate [Ventolin HFA] 90 mcg/actuation HFA aerosol inhaler 2 puff inhalation Q4H PRN (Reason: shortness of breath or wheezing) Qty: 8.5 0RF tamsulosin 0.4 mg capsule See Rx Instructions .ROUTE .COMPLEX Qty: 90 3RF Dose Instruction: TAKE 1 CAPSULE BY MOUTH EVERY DAY AT BEDTIME FOR PROSTATE MED Rx Instructions: TAKE 1 CAPSULE BY MOUTH EVERY DAY AT BEDTIME FOR PROSTATE MED turmeric 400 mg Capsule 400 mg PO DAILY amoxicillin-pot clavulanate 875-125 mg tablet 1 tab PO BID Qty: 14 0RF Discharge Orders: Discharge ED (Routine); Ordered 06/25/23 Ordered By: Becky Gooden Referrals: Luis Dwyer MD [Primary Care Provider] - Patient Instructions: Care For Your Stitches (DC), Laceration (DC) Activity Restrictions/Additional Instructions: Keep wound/laceration clean with warm soap and water twice daily. Monitor for signs of infection such as redness, swelling, increased pain, or drainage. Please seek medical re-evaluation if these occur. If you received sutures today these will need to be removed (unless you were told by the provider that they are absorbable). The provider should have discussed with you the length of time until removal-7 TO 10 DAYS. You may return to the emergency department for this service. Coding Level of Care Code ED Turner Splitter Machine Operator for Tae Farrell
--- NOTE | 2023-06-25 14:43 | PC.NURSE ---
wound cleansed with normal saline
--- NOTE | 2023-06-25 15:27 | PC.NURSE ---
covered wound with dressing
--- NOTE | 2023-07-05 19:33 | PC.NURSE ---
Patient presented to the ER on 07/05/23 to have 8 stitches removed. Dav Caban looked at the wound and said it looked very good and to go ahead and remove the stitches. I cleaned the wound and removed the stitches.
== END 2023-06-25 15:46 | disposition home or self-care (01) ==
PROVIDERS: Emergency Provider Physician Assistant; PCP Family Medicine Adult Medicine
DX: S51.811A Laceration without foreign body of right forearm, initial encounter (principal); J44.9 Chronic obstructive pulmonary disease, unspecified; I10 Essential (primary) hypertension; F17.210 Nicotine dependence, cigarettes, uncomplicated; W26.8XXA Contact with other sharp object(s), not elsewhere classified, initial encounter
CPT/HCPCS: 12002; 99282

== ENCOUNTER 2023-08-09 07:37 | Outpatient (CLI) | payer MEDICARE, SELFPAY ==
--- NOTE | 2023-08-09 08:00 | CT_ITS ---
WS: [id number] LDCT LUNG CANCER SCREENING HISTORY: follow up TECHNIQUE: Axial imaging performed from the apices to 1 cm below the costophrenic angles. Coronal and sagittal reformats are submitted with axial MIP series. All CT scans at [facility] use at least one of these dose optimization techniques: automated exposure control; mA and/or kV adjustment per patient size (includes targeted exams where dose is matched to clinical indication); or iterativ e reconstruction. DLP: 63.69 mGy DIvol: 1.60 COMPARISON: 02/06/2023 Diagnostic quality: Satisfactory Lungs: No change in the 5 mm nodules at the RIGHT lung apex. These are associated with fibrosis and s carring. No new mass or pulmonary nodule. No endobronchial lesions. Moderate centrilobular emphysema and pulmonary hyperexpansion. Heart: Normal size heart with no pericardial effusion.. Other findings: Moderate atherosclerosis aorta. Pulmonary artery size is normal. No mediastinal or hi lar adenopathy. Exophytic RIGHT renal cyst. Low-attenuation in the LEFT adrenal gland unchanged consi stent with an adenoma. Suprarenal aortic calcifications. Low-attenuation mass in the RIGHT lobe of th e liver measures 1.8 cm. The renal cyst and the liver cyst were described on CT from 06/09/2018. IMPRESSION: CT/CT lung screening [id number] LUNG-RADS: 2-Benign Appearance or Behavior FOLLOW UP: 12 Month: Continue annual screening with LDCT OTHER FINDINGS (S MODIFIER): None.
== END 2023-08-09 07:38 | disposition home or self-care (01) ==
PROVIDERS: PCP Family Medicine Adult Medicine; Visit Provider Family Medicine Adult Medicine
DX: J44.9 Chronic obstructive pulmonary disease, unspecified (principal); R91.1 Solitary pulmonary nodule
CPT/HCPCS: 71271

== ENCOUNTER → 2023-12-18 08:37 | Outpatient (BNVA) | payer MEDICARE, SELFPAY | PROVIDERS: PCP Family Medicine Adult Medicine; Visit Provider Family Medicine Adult Medicine | DX: I10 Essential (primary) hypertension (principal); N40.1 Benign prostatic hyperplasia with lower urinary tract symptoms; R25.2 Cramp and spasm; J43.1 Panlobular emphysema; K31.84 Gastroparesis; K21.9 Gastro-esophageal reflux disease without esophagitis; R19.6 Halitosis; Z87.891 Personal history of nicotine dependence | CPT/HCPCS: 80053; 80061; 84443; 85025; G0103 ==

== ENCOUNTER → 2023-12-24 10:01 | Outpatient (BNVA) | payer MEDICARE, SELFPAY | PROVIDERS: PCP Family Medicine Adult Medicine; Visit Provider Surgery | DX: K21.9 Gastro-esophageal reflux disease without esophagitis (principal); Z12.11 Encounter for screening for malignant neoplasm of colon; R13.10 Dysphagia, unspecified | CPT/HCPCS: 99024; 99204 ==

== ENCOUNTER 2024-01-22 06:47 | Day surgery (SDC) | payer MEDICARE, SELFPAY ==
[2024-01-22 07:08] VITALS: BP 159/109; PULSE 85; RESP 20; TEMP 36.4; O2SAT 95; BMI 25.8
[2024-01-22] MEDS: sodium chloride 0.9% 1,000 ML 30 ML IV (07:12)
--- NOTE | 2024-01-22 07:42 | ANES.PREANE2 ---
Pre-Anesthetic Assessment Height/Weight: Height 1.73 m Weight 77.111 kg Temp Pulse Resp BP Pulse Ox O2 Del Method 97.5 F L 85 20 H 159/109 95 Room Air 01/22/24 07:08 01/22/24 07:08 01/22/24 07:08 01/22/24 07:08 01/22/24 07:08 01/22/24 07:08 Preop Diagnosis: dysphagia Operation Date: 01/22/24 08:00 Proposed Procedures p 66962 EGD Dilation W/ Balloon, K21.9,Z12.11(Not Applicable) [place] [id number],G0121:Colonoscopy(Not Applicable) - Alexey Olivares DO Familial anesthetic complications: None Was Beta Trip taken within 24 hours: N/A Was Clonidine taken within 24 hours: N/A Last intake: Intake Last Liquid Date 01/21/24 Last Liquid Time 22:00 Last Solid Date 01/20/24 Last Solid Time 12:00 Social Tobacco quit smoking smoked 1 ppd pack(s) per day 55 pack years Exam alert, oriented x 3, clear to auscultation bilaterally and regular rate & rhythm Takes albuterol MDI PRN Airway Submandibular: within normal limits Cervical ROM: within normal limits Mallampati: Class I Dentition: full History/ROS No significant history except as noted Pulmonary Chronic Obstructive Pulmonary Disease and Exertional Dyspnea CV/HEM None reported None reported Hepatic None reported GI Gastroesophageal Reflux Disease Metabolic None reported Musc/skel None reported Neuropsych None reported Anesthetic Plan ASA status: 3 Anesthesia: Anesthesia Evaluation and MAC Risk of > 500 ml blood loss (7ml/kg in children): No Medications/Allergies Home Medications Medication Instructions Recorded Confirmed Last Taken Type lutein 20 mg capsule 20 mg PO DAILY 07/20/21 01/20/24 01/20/24 History turmeric 400 mg capsule 400 mg PO DAILY 02/02/22 01/20/24 01/20/24 History albuterol sulfate 90 mcg/actuation 2 puff inhalation Q4H PRN 12/18/23 01/20/24 01/01/24 Rx aerosol inhaler (Ventolin HFA) shortness of breath or wheezing #8.5 grams tamsulosin 0.4 mg capsule 0.4 mg PO QPM 01/20/24 01/20/24 01/20/24 History Allergies Allergy/AdvReac Type Severity Reaction Status Date / Time treated wood Allergy Severe Unknown Uncoded 01/20/24 09:07 Current Medications Generic Name Dose Route Start Last Admin Trade Name Dianne PRN Reason Stop Dose Admin Sodium Chloride 1,000 mls @ 30 mls/hr 01/22/24 07:00 01/22/24 07:12 Sodium Chloride 0.9% IV 01/23/24 06:59 30 mls/hr .Q24H SHARMIN Administration PFSH Anesthesia Medical History Former cigarette smoker Quit smoking after 55 years ~08/2023 Halitosis GERD (gastroesophageal reflux disease) Gastroparesis Lung nodule seen on imaging study 02/06/2023 5 mm largest in right apex, repeat on 08/09/2023 and no changes are recommended return to annual screening Hypertension Allergic rhinitis due to allergen Left shoulder pain Bilateral leg cramps COPD (chronic obstructive pulmonary disease) 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 urethral stricture Chronic indwelling Jacob catheter Gout Foot pain Surgical History History of appendectomy Family History Denies family history of Hyperlipidemia Hypertension Social History Smoking and tobacco/nicotine status: current every day tobacco/nicotine user cigarettes Packs smoked per day: 1 Years cigarettes smoked: 54 Alcohol intake: current Alcohol intake frequency: holidays/special occasions only Substance/Drug Use: unknown Household members: spouse Marital status: Current occupational status: retired Data Anesthesia Cardiac Studies: No Data to Display
--- NOTE | 2024-01-22 08:00 | W.PM.OPSUD ---
Surgery/Procedure H&P Update DATE OF PROCEDURE: January 22, 2024 DATE H&P PERFORMED: 12/24/23 H&P UPDATE INFORMATION: I have reviewed H&P completed within last 30 days, I have examined patient prior to procedure and No changes to prior documentation PREOP DIAGNOSIS: dysphagia PLANNED PROCEDURE: Operation Date: 01/22/24 08:00 Proposed Procedures p [id number] EGD Dilation W/ Balloon, K21.9,Z12.11(Not Applicable) - [place] s [id number],G0121:Colonoscopy(Not Applicable) - Alexey Olivares DO
[2024-01-22 08:44] VITALS: BP 149/96; PULSE 62; RESP 18; TEMP 36.1; O2SAT 92
[2024-01-22 08:51] VITALS: BP 109/75; PULSE 66; RESP 18; O2SAT 91
[2024-01-22 09:00] VITALS: BP 152/99; PULSE 63; RESP 18; O2SAT 91
--- NOTE | 2024-01-22 15:23 | ANE.PACU2 ---
Inpatient post-anesthesia follow up: Airway intact: Yes Vital signs: Temperature 97.0 F Pulse Rate 63 Respiratory Rate 18 Blood Pressure 152/99 Pulse Oximetry 91 Oxygen Delivery Me thod Room Air Oxygen Flow Rate Fraction of Inspir ed Oxygen Hydration adequate: Yes Nausea and vomiting: No Pain level: 2 Mental status: Baseline
== END 2024-01-22 09:45 | disposition home or self-care (01) ==
PROVIDERS: PCP Family Medicine Adult Medicine; Visit Provider Surgery
PROC: 0DJD8ZZ Inspection of Lower Intestinal Tract, Via Natural or Artificial Opening Endoscopic (ICD-10-PCS; CPT 45378; 2024-01-22 08:00)
DX: Z12.11 Encounter for screening for malignant neoplasm of colon (principal); R13.10 Dysphagia, unspecified; K21.9 Gastro-esophageal reflux disease without esophagitis; K57.30 Diverticulosis of large intestine without perforation or abscess without bleeding; K44.9 Diaphragmatic hernia without obstruction or gangrene; K29.50 Unspecified chronic gastritis without bleeding; D12.4 Benign neoplasm of descending colon; D12.5 Benign neoplasm of sigmoid colon; D12.8 Benign neoplasm of rectum; Z87.891 Personal history of nicotine dependence; J44.9 Chronic obstructive pulmonary disease, unspecified; I10 Essential (primary) hypertension; N40.1 Benign prostatic hyperplasia with lower urinary tract symptoms; N13.8 Other obstructive and reflux uropathy
CPT/HCPCS: 43239; 45381; 45385; 88305; J2704; J3490; J7030

== ENCOUNTER → 2024-02-06 08:49 | Outpatient (BNVA) | payer MEDICARE, SELFPAY | PROVIDERS: PCP Family Medicine Adult Medicine; Visit Provider Surgery | DX: Z09 Encounter for follow-up examination after completed treatment for conditions other than malignant neoplasm (principal); Q40.2 Other specified congenital malformations of stomach; K59.00 Constipation, unspecified; R19.6 Halitosis; D37.4 Neoplasm of uncertain behavior of colon | CPT/HCPCS: 99214 ==

== ENCOUNTER → 2024-08-07 11:28 | Outpatient (BNVA) | payer MEDICARE, SELFPAY | PROVIDERS: PCP Family Medicine Adult Medicine; Visit Provider Emergency Medicine | DX: R39.9 Unspecified symptoms and signs involving the genitourinary system (principal) | CPT/HCPCS: 81000 ==

== ENCOUNTER 2024-10-27 06:47 | Outpatient (CLI) | payer MEDICARE, SELFPAY ==
--- NOTE | 2024-10-27 08:00 | CT_ITS ---
WS: [id number] LDCT LUNG CANCER SCREENING TECHNIQUE: Noncontrast CT of the chest with coronal and sagittal reformatted images. CLINICAL INFORMATION: kayley dep in remission; qt 2022; 55pk yr hx; screening lung ca COMPARISON: CT 08/09/2023 DLP: 54.59 mGy.cm DIvol: Mean CTDIvol: 0.90 (mGy) All CT scans at [facility] use at least one of these dose optimization techniques: automat ed exposure control; mA and/or kV adjustment per patient size (includes targeted exams where dose is matched to clinical indication); or iterative reconstruction. FINDINGS: Stable subcentimeter nodules RIGHT upper lobe measuring 4 to 5 mm. Associated fibrosis in the lung ap ices. Partially calcified nodule LEFT fissure measuring 3.5 mm. No new suspicious pulmonary parenchym al abnormalities. Moderate centrilobular emphysematous changes. Aortic calcification. No mediastinal or hilar lymphadenopathy. RIGHT renal cyst. Stable LEFT adrenal adenoma. Partially visualized hepatic cysts. Thoracic kyphosis. Chronic anterior wedging in the midthoracic spine with endplate Schmorl's nodes. CT/CT lung screening [id number] IMPRESSION: LUNG-RADS: 2-Benign Appearance or Behavior FOLLOW UP: 12 Month: Continue annual screening with LDCT
== END 2024-10-27 06:48 | disposition home or self-care (01) ==
LOC: RAD 06:48
PROVIDERS: PCP Family Medicine; Visit Provider Family Medicine
DX: Z12.2 Encounter for screening for malignant neoplasm of respiratory organs (principal); F17.211 Nicotine dependence, cigarettes, in remission; R91.8 Other nonspecific abnormal finding of lung field; J43.2 Centrilobular emphysema; I70.0 Atherosclerosis of aorta; N28.1 Cyst of kidney, acquired; D35.02 Benign neoplasm of left adrenal gland; Q44.6 Cystic disease of liver; M40.204 Unspecified kyphosis, thoracic region
CPT/HCPCS: 71271

== ENCOUNTER 2025-03-03 08:54 | Emergency (ER) | payer MEDICARE, SELFPAY ==
[2025-03-03] VITALS (8 sets, daily range): BP systolic 126–160; BP diastolic 91–121; PULSE 74–98; RESP 18–20; TEMP 36.4; O2SAT 92–95; BMI 24.3
--- NOTE | 2025-03-03 09:37 | XR_ITS ---
WS: [id number] Exam: XR chest 1V portable [id number] Date/Time of Exam: 03/03/2025 9:48 AM Reason For Exam: dyspnea Comparison 01/01/2022. Lungs are hyperinflated and clear. Heart size top limits normal. The mediastinum is normal in contour. No pleural effusions. Unremarkable bony structures. XR/XR chest 1V portable [id number] IMPRESSION: 1. Pulmonary hyperinflation. No acute process.
--- NOTE | 2025-03-03 09:37 | ECG_ITS ---
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 Measurements Intervals [place] Rate: 86 P: 84 MS: 145 QRS: 66 QRSD: 105 T: 93 QT: 419 QTc: 502 Interpretive Statements SINUS RHYTHM POSSIBLE LEFT ATRIAL ENLARGEMENT [-0.1mV P-WAVE IN V1/V2] MODERATE ST DEPRESSION [0.05+ mV ST DEPRESSION] PROLONGED QT INTERVAL Compared to ECG 11/06/2019 16:29:30 ST (T wave) deviation now present Prolonged QT interval now present Sinus bradycardia no longer present T-wave abnormality no longer present Electronically Signed On 03-03-2025 15:58:14 CDT by Priscilla Adams M.D. [email or web address]
[2025-03-03 09:56] LABS: Basophils # 0.1 10^3/uL (0.0-0.1); Basophils % 0.8 %; Eosinophils % 0.3 %; Hematocrit 45.4 % (37-53); Lymphocytes # 1.3 10^3/uL (0.8-4.8); Lymphocytes % 18.9 %; Mean Corpuscular Hemoglobin 29.1 pg (27-33); Mean Platelet Volume 9.8 fL (7.4-10.4); Monocytes # 0.6 10^3/uL (0.2-0.9); Monocytes % 9.4 %; Neutrophils # 4.64 10^3/uL (1.8-7.7); Neutrophils % 70.3 %; Nucleated Red Blood Cells % 0 %; Platelet Count 237 10^3/cmm (157-399); Red Blood Count 5.16 10^6/uL (3.85-5.65); Red Cell Distribution Width 13.6 % (12.1-15.1)
--- NOTE | 2025-03-03 10:00 | ED_ITS ---
HPI - SOB/Dyspnea 2 General: Chief Complaint: Shortness of Breath/Dyspnea Stated Complaint: low O2, sob, weakness Time Seen by Provider: 03/03/25 09:36 History of Present Illness: HPI Narrative: 69-year-old male presents emergency room complaining of shortness of breath for 4 days. Had productive cough of clear sputum at home. Evidence of O2 monitoring at home oxygen sat has been low at times. On arrival here is a 94% on room air. Was seen 2 months ago had similar flareup was given a nebulizer which they have been using regularly but does not seem to have helped. Denies any hemoptysis. Associated symptoms: Reports chest congestion; Deny abdominal pain, chest pain or fever(s) Related Data Previous Rx's ?Medication ?Instructions ?Recorded tamsulosin 0.4 mg capsule 0.4 mg PO QPM #90 caps 11/16 albuterol sulfate 90 mcg/actuation 2 puff inhalation Q 4H PRN 12/17/24 aerosol inhaler (Ventolin HFA) shortness of breath or wheezing #8.5 grams budesonide-formoterol HFA 80 2 puff inhalation BID #10 .2 grams 12/17/24 mcg-4.5 mcg/actuation aerosol inhaler (Symbicort) ipratropium 0.5 mg-albuterol 3 mg 3 ml inhalation Q6H #180 mL 01/08/25 (2.5 mg base)/3 mL nebulization soln methylprednisolone 4 mg tablets in See Rx Instructions PO .COMPLEX 03/03/25 a dose pack (Medrol (Hiro)) #21 ea Allergies Allergy/AdvReac Type Severity Reaction Status Date / Time treated wood Allergy Severe Unknown Uncoded 01/08/25 11:08 Review of Systems 2 Const: Denies: fever(s) or chills Card: Denies: chest pain Resp: Reports: dyspnea, productive cough, wheezing and chest congestion GI: Denies: abdominal pain : Denies: dysuria, urinary frequency or urinary urgency Musc: Denies: neck pain or back pain Skin/Breast: Denies: rash PFSH ED 2 PFSH: Medical History Moderate tobacco use disorder Screening for lung cancer Nicotine dependence, cigarettes, in remission Former cigarette smoker Quit smoking after 55 years ~08/2023 Halitosis GERD (gastroesophageal reflux disease) Gastroparesis Lung nodule seen on imaging study 02/06/2023 5 mm largest in right apex, repeat on 08/09/2023 and no changes are recommended return to annual screening Hypertension Allergic rhinitis due to allergen Left shoulder pain Bilateral leg cramps COPD (chronic obstructive pulmonary disease) 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 urethral stricture Chronic indwelling Jcaob catheter Gout Foot pain Surgical History History of esophagogastroduodenoscopy (EGD) History of colonoscopy with polypectomy History of appendectomy Family History Denies family history of Hyperlipidemia Hypertension Social History Smoking and tobacco/nicotine status: current every day tobacco/nicotine user cigarettes Packs smoked per day: 1 Years cigarettes smoked: 54 Alcohol intake: current Alcohol intake frequency: holidays/special occasions only Substance/Drug Use: unknown Household members: spouse Marital status: Current occupational status: retired Physical Exam 2 Const: GENERAL APPEARANCE: cooperative ORIENTATION/CONSCIOUSNESS: Yes awake, Yes oriented to person, Yes oriented to place and Yes oriented to time HENMT: COMMON NORMALS: normocephalic, atraumatic and hearing grossly normal bilaterally HEAD & SCALP: normocephalic and atraumatic Resp: COMMON NORMALS: normal respiratory effort, No retractions, No use of accessory muscles and clear to auscultation bilaterally AUSCULTATION: clear to auscultation bilaterally Cardio: COMMON NORMALS: regular rate, regular rhythm and No murmurs present (Cardio) RATE: regular rate RHYTHM: regular rhythm GI: COMMON NORMALS: Soft to palpation and No hepatosplenomegaly present A USCULTATION: Yes normoactive bowel sounds PALPATION: Yes Soft to palpation, No Tenderness to palpation present (GI), No Guarding due to palpation present (GI) and Yes No hepatosplenomegaly present Extremity: COMMON NORMALS: normal to inspection, capillary refill normal, no clubbing, cyanosis or edema, no calf tenderness and no pedal edema Neuro: SENSORIUM/ORIENTATION: Yes oriented to person, Yes oriented to place and Yes oriented to time Skin: COMMON NORMALS: no rashes or lesions noted GENERAL SKIN EXAM: no rashes or lesions noted Course 2 Vital Signs: Vital signs: Vital Signs Temperature 97.6 F 03/03/25 09:15 Pulse Rate 87 03/03/25 12:24 Respiratory Rate 20 H 03/03/25 11:02 Blood Pressure 146/104 03/03/25 12:24 Pulse Oximetry 93 03/03/25 12:24 Oxygen Delivery Me thod Room Air 03/03/25 12:20 MDM - SOB/Dyspnea Medical Decision Making Patient positive for RSV no acute infiltrates. Will discharge patient home reviewed findings and discussed usual course of RSV. Medical Records I reviewed the patient's medical records. Lab Data I reviewed the patient's lab results. 03/03/25 09:45 03/03/25 09:45 Labs/Radiology: Radiology Impressions Chest X-Ray 03/03/25 09:37 IMPRESSION: 1. Pulmonary hyperinflation. No acute process. Laboratory Results WBC 6.60 10^3/uL (3.29-11.43) 03/03/25 09:45 RBC 5.16 10^6/uL (3.85-5.65) 03/03/25 09:45 Hgb 15.00 g/dL (11.27-16.99) 03/03/25 09:45 Hct 45.4 % (37-53) 03/03/25 09:45 MCV 88.0 fl (82-101) 03/03/25 09:45 MCH 29.1 pg (27-33) 03/03/25 09:45 MCHC 33.0 g/dL (30-55) 03/03/25 09:45 RDW 13.6 % (12.1-15.1) 03/03/25 09:45 Plt Count 237 10^3/cmm (157-399) 03/03/25 09:45 MPV 9.8 fL (7.4-10.4) 03/03/25 09:45 Neut % (Auto) 70.3 % 03/03/25 09:45 Lymph % (Auto) 18.9 % 03/03/25 09:45 [place] % (Auto) 9.4 % 03/03/25 09:45 Eos % (Auto) 0.3 % 03/03/25 09:45 Baso % (Auto) 0.8 % 03/03/25 09:45 Neut # (Auto) 4.64 10^3/uL (1.8-7.7) 03/03/25 09:45 Lymph # (Auto) 1.3 10^3/uL (0.8-4.8) 03/03/25 09:45 [place] # (Auto) 0.6 10^3/uL (0.2-0.9) 03/03/25 09:45 Eos # (Auto) 0.0 10^3/uL (0.0-0.8) 03/03/25 09:45 Baso # (Auto) 0.1 10^3/uL (0.0-0.1) 03/03/25 09:45 Nucleated RBC % (auto) 0 % 03/03/25 09:45 Nucleated RBCs # 0.0 /100WBC 03/03/25 09:45 Sodium 140 mmol/L (136-145) 03/03/25 09:45 Potassium 4.3 mmol/L (3.5-5.1) 03/03/25 09:45 Chloride 103 mmol/L (98-107) 03/03/25 09:45 Carbon Dioxide 24 mmol/L (22-29) 03/03/25 09:45 Anion Gap 17.3 (5-19) 03/03/25 09:45 BUN 15 mg/dL (8-23) 03/03/25 09:45 Creatinine 0.9 mg/dL (0.7-1.2) 03/03/25 09:45 GFR Calculation Not Reportable 03/03/25 09:45 Glucose 106 mg/dL (65-115) 03/03/25 09:45 Calculated Osmolality 291 mOsm/kg (285-295) 03/03/25 09:45 Calcium 9.1 mg/dL (8.5-10.5) 03/03/25 09:45 Total Bilirubin 0.3 mg/dL (0.15-1.2) 03/03/25 09:45 AST 31 U/L (0-40) 03/03/25 09:45 ALT 31 U/L (0-41) 03/03/25 09:45 Alkaline Phosphatase 76 U/L (40-130) 03/03/25 09:45 Troponin T Baseline 36 ng/L (0-15) H 03/03/25 09:45 Troponin T 120 Minute 32.50 ng/L (0-15) H 03/03/25 11:42 Delta Troponin T -3.50 ABS# (0-10) L 03/03/25 11:42 Total Protein 7.0 g/dL (6.6-8.7) 03/03/25 09:45 Albumin 3.9 g/dL (3.5-5.2) 03/03/25 09:45 Globulin 3.1 g/dL (1.3-4.6) 03/03/25 09:45 Urine Color Yellow (Yellow) 03/03/25 11:45 Urine Appearance Clear (CLEAR) 03/03/25 11:45 Urine pH 6 (5-7) 03/03/25 11:45 Ur Specific [place] 1.020 (1.005-1.030) 03/03/25 11:45 Urine Protein 2+ (Negative) A 03/03/25 11:45 Urine Glucose (UA) Norm (Normal) 03/03/25 11:45 Urine Ketones 1+ (Negative) H 03/03/25 11:45 Urine Blood 3+ (Negative) A 03/03/25 11:45 Urine Nitrate Negative (Negative) 03/03/25 11:45 Urine Bilirubin Neg (Negative) 03/03/25 11:45 Urine Urobilinogen Norm mg/dL (Negative) 03/03/25 11:45 Ur Leukocyte Esterase Negative (Negative) 03/03/25 11:45 Urine RBC 11-20 /hpf (0-2) H 03/03/25 11:45 Urine WBC 0-5 /hpf (0-5) 03/03/25 11:45 Ur Squamous Epith Cells 0-5 /hpf (0-5) 03/03/25 11:45 Amorphous Sediment Not Reportable 03/03/25 11:45 Urine Bacteria None seen /hpf (NONE) 03/03/25 11:45 Hyaline Casts 7.85 /lpf 03/03/25 11:45 Influenza A (PCR) Negative (Negative) 03/03/25 10:45 Influenza Type B (PCR) Negative (Negative) 03/03/25 10:45 RSV (PCR) Positive (Negative) A 03/03/25 10:45 SARS-CoV-2 (PCR) Negative (Negative) 03/03/25 10:45 All radiology interpretation(s) finalized by discharge Discharge Plan Discharge Patient Disposition: Home Clinical Impression: Acute exacerbation of chronic obstructive airways disease, Respiratory syncytial virus (RSV) Condition: Stable Prescriptions: New methylprednisolone [Medrol (Hiro)] 4 mg tablets,dose pack See Rx Instructions .ROUTE .COMPLEX Qty: 21 0RF Rx Instructions: orally per package directions No Action tamsulosin 0.4 mg capsule 0.4 mg PO QPM Qty: 90 1RF budesonide-formoterol [Symbicort] 80-4.5 mcg/actuation HFA aerosol inhaler 2 puff inhalation BID Qty: 10.2 3RF albuterol sulfate [Ventolin HFA] 90 mcg/actuation HFA aerosol inhaler 2 puff inhalation Q4H PRN (Reason: shortness of breath or wheezing) Qty: 8.5 3RF ipratropium-albuterol 0.5 mg-3 mg(2.5 mg base)/3 mL solution for nebulization 3 ml inhalation Q6H Qty: 180 0RF Discharge Orders: Discharge ED (Routine); Ordered 03/03/25 Ordered By: Bob Rodriguez Referrals: Scooby Perez MD [Primary Care Provider] - Discharge Diet: Usual diet Discharge Activity: Increase activity as tolerated Patient Instructions: Opioid Safety, Pain Management, Respiratory Syncytial Virus (RSV) Activity Restrictions/Additional Instructions: Thank you for choosing [facility] for your healthcare needs today. It is very important that you follow up as instructed or that you return to the Emergency Department should you have concerns or if your condition changes or worsens in any way. You were seen in the emergency room with complaint of shortness of breath and wheezing. You tested positive for RSV which is exacerbating your underlying COPD. Recommend a steroid taper and aggressive use of albuterol. Cough will take 6 to 8 weeks to resolve. You will slowly improve over that period of time. Follow-up with your primary care doctor for persistent problems. Print Language: Yi Coding Level of Care Code ED Computer Forensics Examiner for Tae Farrell
[2025-03-03 10:16] LABS: Troponin(5th) Baseline 36 ng/L (0-15)
[2025-03-03 10:19] LABS: Alanine Aminotransferase 31 U/L (0-41); Albumin Level 3.9 g/dL (3.5-5.2); Alkaline Phosphatase 76 U/L (40-130); Aspartate Amino Transferase 31 U/L (0-40); Blood Urea Nitrogen 15 mg/dL (8-23); Calcium 9.1 mg/dL (8.5-10.5); Carbon Dioxide 24 mmol/L (22-29); Chloride 103 mmol/L (98-107); Creatinine Clr Calc Pharmacy 74.6116; Globulin 3.1 g/dL (1.3-4.6); Glucose 106 mg/dL (65-115); Osmolality Calculated 291 mOsm/kg (285-295); Sodium 140 mmol/L (136-145); Total Bilirubin 0.3 mg/dL (0.15-1.2)
[2025-03-03] MEDS: methylPREDNISolone sod succ 125 mg/2 mL INJ IVP (10:39)
[2025-03-03 10:45] LABS: Anion Gap 17.3 (5-19); Potassium 4.3 mmol/L (3.5-5.1)
[2025-03-03] MEDS: ipratropium-albuterol 3 mL Neb INHALATION (11:02)
[2025-03-03 11:29] LABS: Influenza A NEGATIVE (Negative); Influenza B NEGATIVE (Negative); SARS-CoV-2 PCR NEGATIVE (Negative)
[2025-03-03 11:33] LABS: Respiratory Syncytial Virus Ce POSITIVE (Negative)
--- NOTE | 2025-03-03 11:37 | ECG_ITS ---
[facility] Pat Name: Ochoa Vanegas Department: Room: Gender: Male Package Clerk: : 1955 Requested By: Bob Trinidad Order Number: [id number] Gal MD: Priscilla Adams M.D. Measurements Intervals [place] Rate: 85 P: 80 OK: 156 QRS: 48 QRSD: 95 T: 79 QT: 379 QTc: 452 Interpretive Statements SINUS RHYTHM POSSIBLE LEFT ATRIAL ENLARGEMENT [-0.1mV P-WAVE IN V1/V2] NONSPECIFIC ST & T-WAVE ABNORMALITY Compared to ECG 03/03/2025 10:12:33 T-wave abnormality now present ST (T wave) deviation no longer present Prolonged QT interval no longer present Electronically Signed On 03-03-2025 21:31:55 CDT by Priscilla Adams M.D. [email or web address]
[2025-03-03 11:59] LABS: Bacteria Urine None Seen /hpf; Hyaline Casts Urine 7.85 /lpf; Squamous Epithelial Cell Urine 0-5 /hpf (0-5); WBC Urine 0-5 /hpf (0-5)
[2025-03-03 12:03] LABS: Add Urine Microscopic? YES; Bilirubin Urine Neg (Negative); Blood Urine 3+ (Negative); Glucose Urine UA Norm (Normal); Ketones Urine 1+ (Negative); Leukocyte Esterase Urine Negative (Negative); Nitrate Urine Negative (Negative); Protein Urine 2+ (Negative); Urine Appearance Clear (CLEAR); Urine Color Yellow (Yellow); Urobilinogen Urine Norm (Negative); pH Urine 6 (5-7)
[2025-03-03 12:04] LABS: Add Urine Culture? No; UA Slide Review UA Slide Review Perf
== END 2025-03-03 12:25 | disposition home or self-care (01) ==
PROVIDERS: Emergency Provider Family Medicine; PCP Family Medicine
DX: J44.1 Chronic obstructive pulmonary disease with (acute) exacerbation (principal); B33.8 Other specified viral diseases; Z11.52 Encounter for screening for COVID-19; F17.210 Nicotine dependence, cigarettes, uncomplicated; I10 Essential (primary) hypertension
CPT/HCPCS: 36415; 71045; 80053; 81001; 84484; 85025; 87637; 93005; 94640; 96374; 99285; J2919; J9999

== ENCOUNTER 2025-05-10 05:24 | Inpatient (IN) | payer MEDICARE, SELFPAY ==
[2025-05-10] VITALS (147 sets, daily range): BP systolic 68–211; BP diastolic 53–165; PULSE 61–93; RESP 12–33; TEMP 36.4; O2SAT 88–100; BMI 27.3; BMI 24.3
--- NOTE | 2025-05-10 06:20 | XRR_ITS ---
PROCEDURE INFORMATION: Exam: XR Chest Exam date and time: 05/10/2025 6:31 AM Age: 69 years old Clinical indication: Cough and shortness of breath; Cough with SOB TECHNIQUE: Imaging protocol: Radiologic exam of the chest. Views: 1 view. COMPARISON: CR XR chest 1V portable [id number] 03/03/2025 9:49 AM FINDINGS: Lungs: Unremarkable. No consolidation. Pleural spaces: Unremarkable. No pleural effusion. No pneumothorax. Heart/Mediastinum: See Vasculature finding. Vasculature: Mild cardiomegaly and uncoiling of the thoracic aorta. Bones/joints: Unremarkable. XR/XR chest 1V portable [id number] IMPRESSION: No acute findings.
--- NOTE | 2025-05-10 06:31 | ED_ITS ---
Documented by User: Nabil Moe DO 05/10/25 07:00 HPI - SOB/Dyspnea 2 General: Chief Complaint: Shortness of Breath/Dyspnea Stated Complaint: SOB Time Seen by Provider: 05/10/25 06:22 History of Present Illness: HPI Narrative: 69-year-old male patient with a history of COPD. He presents to the ER with progressive shortness of breath over the last 3 days or so. He has been wheezing. Has been using his albuterol inhaler at home without much relief. No fever. Some sputum production. No significant leg swelling or chest pain. He says that nebulizer treatments helped more, but he is out of his DuoNeb at home. Related Data Home Medications ?Medication ?Instructions ?Recorded ?Confirmed budesonide-formoterol HFA 80 2 puff inhalation BID PRN 05/10/25 05/10/25 mcg-4.5 mcg/actuation aerosol Shortness Of Breath inhaler (Symbicort) ipratropium 0.5 mg-albuterol 3 mg 3 ml inhalation Q6H PRN Shortness 05/10/25 05/10/25 (2.5 mg base)/3 mL nebulization Of Breath soln Previous Rx's ?Medication ?Instructions ?Recorded tamsulosin 0.4 mg capsule 0.4 mg PO QPM #90 caps 11/16 albuterol sulfate 90 mcg/actuation 2 puff inhalation Q 4H PRN 12/17/24 aerosol inhaler (Ventolin HFA) shortness of breath or wheezing #8.5 grams Allergies Allergy/AdvReac Type Severity Reaction Status Date / Time treated wood Allergy Severe Unknown Uncoded 05/10/25 05:39 PFS ED 2 PFSH: Medical History Moderate tobacco use disorder Screening for lung cancer Nicotine dependence, cigarettes, in remission Former cigarette smoker Quit smoking after 55 years ~08/2023 Halitosis GERD (gastroesophageal reflux disease) Gastroparesis Lung nodule seen on imaging study 02/06/2023 5 mm largest in right apex, repeat on 08/09/2023 and no changes are recommended return to annual screening Hypertension Allergic rhinitis due to allergen Left shoulder pain Bilateral leg cramps COPD (chronic obstructive pulmonary disease) 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 urethral stricture Chronic indwelling Jacob catheter Gout Foot pain Surgical History History of esophagogastroduodenoscopy (EGD) History of colonoscopy with polypectomy History of appendectomy Family History Denies family history of Hyperlipidemia Hypertension Social History Smoking and tobacco/nicotine status: current every day tobacco/nicotine user cigarettes Packs smoked per day: 1 Years cigarettes smoked: 54 Alcohol intake: current Alcohol intake frequency: holidays/special occasions only Substance/Drug Use: unknown Household members: spouse Marital status: Current occupational status: retired Physical Exam 2 Const: GENERAL APPEARANCE: cooperative and ill appearing (mildly); not frail appearing HENMT: COMMON NORMALS: normocephalic, atraumatic and Normal external nose present HEAD & SCALP: normocephalic and atraumatic FACE & SINUS: normal facial exam and face symmetric NOSE: Normal external nose present Eye: COMMON NORMALS: Equal, round and reactive pupils present and EOMs intact bilaterally PUPIL: Yes Equal, round and reactive pupils present Neck/C-Spine: GENERAL: Yes trachea midline Chest: CHEST: Yes Symmetrical chest wall rise Resp: EFFORT & INSPECTION: Yes tachypneic and Yes labored (mildly) A USCULTATION: wheezes throughout Cardio: COMMON NORMALS: regular rate and regular rhythm RATE: regular rate RHYTHM: regular rhythm GI: COMMON NORMALS: Normal to inspection, nondistended, normoactive bowel sounds present Extremity: COMMON NORMALS: no pedal edema Neuro: HOMAR COMA SCALE: document GCS findings Homar coma scale eye opening: Spontaneous Homar coma scale verbal response: Orientated Homar coma scale motor response: Obey commands Homar coma scale total score: 15 S ENSORY EXAM: Yes extremities (intact) Psych: COMMON NORMALS: speech normal SPEECH: Yes normal speech Skin: COMMON NORMALS: no rashes or lesions noted GENERAL SKIN EXAM: no rashes or lesions noted Course 2 Vital Signs: Vital signs: Vital Signs Temperature 97.5 F L 05/10/25 05:36 Pulse Rate 68 05/10/25 08:46 Respiratory Rate 19 H 05/10/25 08:30 Blood Pressure 116/81 06/16/25 08:46 Pulse Oximetry 98 05/10/25 08:46 Oxygen Delivery Me thod Mechanical Ventil ation 05/10/25 08:00 Fraction of Inspir ed Oxygen 80 05/10/25 07:50 MDM - SOB/Dyspnea Medical Decision Making Patient experiencing COPD exacerbation. DuoNeb, Solu-Medrol, terbutaline, and workup. Labs are pending. Chest x-ray is negative for infiltrate. Will be checked out at shift change. Lab Data 05/10/25 06:35 05/10/25 06:35 Labs/Radiology: Radiology Impressions Chest X-Ray 05/10/25 07:25 IMPRESSION: No acute findings. The tip of the endotracheal tube is very poorly seen. Laboratory Results WBC 7.59 10^3/uL (3.29-11.43) 05/10/25 06:35 RBC 4.68 10^6/uL (3.85-5.65) 05/10/25 06:35 Hgb 13.60 g/dL (11.27-16.99) 05/10/25 06:35 Hct 41.0 % (37-53) 05/10/25 06:35 MCV 87.6 fl (82-101) 05/10/25 06:35 MCH 29.1 pg (27-33) 05/10/25 06:35 MCHC 33.2 g/dL (30-55) 05/10/25 06:35 RDW 13.5 % (12.1-15.1) 05/10/25 06:35 Plt Count 260 10^3/cmm (157-399) 05/10/25 06:35 MPV 9.4 fL (7.4-10.4) 05/10/25 06:35 Neut % (Auto) 49.9 % 05/10/25 06:35 Lymph % (Auto) 31.5 % 05/10/25 06:35 Craig % (Auto) 7.6 % 05/10/25 06:35 Eos % (Auto) 9.9 % 05/10/25 06:35 Baso % (Auto) 0.8 % 05/10/25 06:35 Neut # (Auto) 3.79 10^3/uL (1.8-7.7) 05/10/25 06:35 Lymph # (Auto) 2.4 10^3/uL (0.8-4.8) 05/10/25 06:35 Craig # (Auto) 0.6 10^3/uL (0.2-0.9) 05/10/25 06:35 Eos # (Auto) 0.8 10^3/uL (0.0-0.8) 05/10/25 06:35 Baso # (Auto) 0.1 10^3/uL (0.0-0.1) 05/10/25 06:35 Nucleated RBC % (auto) 0 % 05/10/25 06:35 Nucleated RBCs # 0.0 /100WBC 05/10/25 06:35 Specimen Type Arterial 05/10/25 07:24 Sample Site Radial, right 05/10/25 07:24 ABG pH 7.11 (7.35-7.45) L* 05/10/25 07:24 ABG pCO2 83.0 mmHg (35-45) H* 05/10/25 07:24 ABG pO2 298.0 mmHg (80.0-100.0) H 05/10/25 07:24 ABG PO2/FiO2 Ratio 298 05/10/25 07:24 ABG HCO3 26.2 mmol/L (22-26) H 05/10/25 07:24 ABG O2 Saturation > 99.1 05/10/25 07:24 ABG Base Excess -5.6 mmol/L (-2.0-2.0) L 05/10/25 07:24 Rangel Test Pos 05/10/25 07:24 A-a O2 Gradient 40.6 mmHg (5-10) H 05/10/25 07:24 Hematocrit 45.9 % (42-52) 05/10/25 07:24 Hgb O2 Saturation 98.0 % (95-100) 05/10/25 07:24 Carboxyhemoglobin 0.6 %THgb (0.4-20.1) 05/10/25 07:24 Methemoglobin 1.0 % (0.4-1.5) 05/10/25 07:24 Total Hemoglobin 15.0 g/dL (14-18) 05/10/25 07:24 Sodium 142.0 mmol/L (131-143) 05/10/25 07:24 Potassium 4.5 mmol/L (3.5-5.0) 05/10/25 07:24 Glucose 197.0 mg/dL (70-115) H 05/10/25 07:24 Ionized Calcium 1.3 mmol/L (1.1-1.4) 05/10/25 07:24 O2 Delivery Device Ambu 05/10/25 07:24 FiO2 100.0 % 05/10/25 07:24 Manager Product Management ID Cak 05/10/25 07:24 Sodium 139 mmol/L (136-145) 05/10/25 06:35 Potassium 4.2 mmol/L (3.5-5.1) 05/10/25 06:35 Chloride 104 mmol/L (98-107) 05/10/25 06:35 Carbon Dioxide 26 mmol/L (22-29) 05/10/25 06:35 Anion Gap 13.2 (5-19) 05/10/25 06:35 BUN 16 mg/dL (8-23) 05/10/25 06:35 Creatinine 0.9 mg/dL (0.7-1.2) 05/10/25 06:35 GFR Calculation Not Reportable 05/10/25 06:35 Glucose 103 mg/dL (65-115) 05/10/25 06:35 Calculated Osmolality 289 mOsm/kg (285-295) 05/10/25 06:35 Lactic Acid 0.6 mmol/L (0.5-2.2) 05/10/25 06:35 Calcium 8.8 mg/dL (8.5-10.5) 05/10/25 06:35 Total Bilirubin 0.3 mg/dL (0.15-1.2) 05/10/25 06:35 AST 29 U/L (0-40) 05/10/25 06:35 ALT 32 U/L (0-41) 05/10/25 06:35 Alkaline Phosphatase 67 U/L (40-130) 05/10/25 06:35 Troponin T Baseline 32 ng/L (0-15) H 05/10/25 06:35 NT-Pro-B Natriuret Pep 787 pg/mL (0-125) H 05/10/25 06:35 Total Protein 7.3 g/dL (6.6-8.7) 05/10/25 06:35 Albumin 3.8 g/dL (3.5-5.2) 05/10/25 06:35 Globulin 3.5 g/dL (1.3-4.6) 05/10/25 06:35 Influenza A (PCR) Negative (Negative) 05/10/25 07:50 Influenza Type B (PCR) Negative (Negative) 05/10/25 07:50 RSV (PCR) Negative (Negative) 05/10/25 07:50 SARS-CoV-2 (PCR) Negative (Negative) 05/10/25 07:50 All radiology interpretation(s) finalized by discharge Discharge Plan Discharge Patient Disposition: Admitted As Inpatient Admit Provider: Alvino Walton Clinical Impression: Acute hypercapnic respiratory failure, Cardiac arrest due to respiratory disorder, Acute exacerbation of chronic obstructive airways disease Condition: Stable Sign Out Sign Out Data: Patient Sign Out occurred on 05/10/25 at 07:23. Patient's care was discussed, and care was transferred from Nabil Moe DO to Bob Rodriguez DO. Coding Level of Care Code ED Greens Laborer for Chg Fwd Documented by User: Bob Rodriguez DO 05/10/25 09:08 HPI - SOB/Dyspnea 2 General: Chief Complaint: Shortness of Breath/Dyspnea Stated Complaint: SOB Time Seen by Provider: 05/10/25 06:22 Related Data Home Medications ?Medication ?Instructions ?Recorded ?Confirmed budesonide-formoterol HFA 80 2 puff inhalation BID PRN 05/10/25 05/10/25 mcg-4.5 mcg/actuation aerosol Shortness Of Breath inhaler (Symbicort) ipratropium 0.5 mg-albuterol 3 mg 3 ml inhalation Q6H PRN Shortness 05/10/25 05/10/25 (2.5 mg base)/3 mL nebulization Of Breath soln Previous Rx's ?Medication ?Instructions ?Recorded tamsulosin 0.4 mg capsule 0.4 mg PO QPM #90 caps 11/16 albuterol sulfate 90 mcg/actuation 2 puff inhalation Q 4H PRN 12/17/24 aerosol inhaler (Ventolin HFA) shortness of breath or wheezing #8.5 grams Allergies Allergy/AdvReac Type Severity Reaction Status Date / Time treated wood Allergy Severe Unknown Uncoded 05/10/25 05:39 PFSH ED 2 PFSH: Medical History Moderate tobacco use disorder Screening for lung cancer Nicotine dependence, cigarettes, in remission Former cigarette smoker Quit smoking after 55 years ~08/2023 Halitosis GERD (gastroesophageal reflux disease) Gastroparesis Lung nodule seen on imaging study 02/06/2023 5 mm largest in right apex, repeat on 08/09/2023 and no changes are recommended return to annual screening Hypertension Allergic rhinitis due to allergen Left shoulder pain Bilateral leg cramps COPD (chronic obstructive pulmonary disease) 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 urethral stricture Chronic indwelling Jacob catheter Gout Foot pain Surgical History History of esophagogastroduodenoscopy (EGD) History of colonoscopy with polypectomy History of appendectomy Family History Denies family history of Hyperlipidemia Hypertension Social History Smoking and tobacco/nicotine status: current every day tobacco/nicotine user cigarettes Packs smoked per day: 1 Years cigarettes smoked: 54 Alcohol intake: current Alcohol intake frequency: holidays/special occasions only Substance/Drug Use: unknown Household members: spouse Marital status: Current occupational status: retired Physical Exam 2 Neuro: HOMAR COMA SCALE: document GCS findings Homar coma scale total score: 15 Procedures Intubation Time out performed: No ET Tube Size: 8 ET Tube Uncuffed: No Tube Secured Depth (cm): 24 Tube Secured Location: teeth Tube Placement Confirmation: visualized tube passing through cords, equal breath sounds bilaterally, no breath sounds over epigastrium and confirmation by capnometry Patient Tolerated Procedure: well Intubation Complications: none Course 2 Vital Signs: Vital signs: Vital Signs Temperature 97.5 F L 05/10/25 05:36 Pulse Rate 68 05/10/25 08:46 Respiratory Rate 19 H 05/10/25 08:30 Blood Pressure 116/81 05/10/25 08:46 Pulse Oximetry 98 05/10/25 08:46 Oxygen Delivery Me thod Mechanical Ventil ation 05/10/25 08:00 Fraction of Inspir ed Oxygen 80 05/10/25 07:50 MDM - SOB/Dyspnea Medical Decision Making Patient experiencing COPD exacerbation. DuoNeb, Solu-Medrol, terbutaline, and workup. Labs are pending. Chest x-ray is negative for infiltrate. Will be checked out at shift change. Care assumed at change of shift for was able to see the patient called by the nursing staff emergently patient was nonresponsive when I came to the room they were moving him to a trauma bay at that point it was noted that he did not have a pulse. CODE BLUE was called CPR initiated. Patient was given a single dose of epinephrine IV push after 2 rounds of compressions ROSC was achieved he is actually mildly hypertensive repeat EKG did not show any ST segment changes blood gas showed hypercapnia but he was also hyperoxygenated after we had intubated him. Patient was intubated during CPR without difficulty. Once ROSC was achieved he began to arouse showing response to the ET tube he was given succinylcholine and etomidate that had been drawn up for the intubation but was not needed because patient was coding at the time. He was then given propofol while we awaited drips of Versed and fentanyl. He did have a transient drop in his blood pressure which improved after fluids. We titrated his fentanyl and Versed down a little as well. He has been given IV Levaquin. I believe the cause of of his arrest was Medical Records I reviewed the patient's medical records. Lab Data I reviewed the patient's lab results. 05/10/25 06:35 05/10/25 06:35 Labs/Radiology: Radiology Impressions Chest X-Ray 05/10/25 07:25 IMPRESSION: No acute findings. The tip of the endotracheal tube is very poorly seen. Laboratory Results WBC 7.59 10^3/uL (3.29-11.43) 05/10/25 06:35 RBC 4.68 10^6/uL (3.85-5.65) 05/10/25 06:35 Hgb 13.60 g/dL (11.27-16.99) 05/10/25 06:35 Hct 41.0 % (37-53) 05/10/25 06:35 MCV 87.6 fl (82-101) 05/10/25 06:35 MCH 29.1 pg (27-33) 05/10/25 06:35 MCHC 33.2 g/dL (30-55) 05/10/25 06:35 RDW 13.5 % (12.1-15.1) 05/10/25 06:35 Plt Count 260 10^3/cmm (157-399) 05/10/25 06:35 MPV 9.4 fL (7.4-10.4) 05/10/25 06:35 Neut % (Auto) 49.9 % 05/10/25 06:35 Lymph % (Auto) 31.5 % 05/10/25 06:35 Craig % (Auto) 7.6 % 05/10/25 06:35 Eos % (Auto) 9.9 % 05/10/25 06:35 Baso % (Auto) 0.8 % 05/10/25 06:35 Neut # (Auto) 3.79 10^3/uL (1.8-7.7) 05/10/25 06:35 Lymph # (Auto) 2.4 10^3/uL (0.8-4.8) 05/10/25 06:35 Craig # (Auto) 0.6 10^3/uL (0.2-0.9) 05/10/25 06:35 Eos # (Auto) 0.8 10^3/uL (0.0-0.8) 05/10/25 06:35 Baso # (Auto) 0.1 10^3/uL (0.0-0.1) 05/10/25 06:35 Nucleated RBC % (auto) 0 % 05/10/25 06:35 Nucleated RBCs # 0.0 /100WBC 05/10/25 06:35 Specimen Type Arterial 05/10/25 07:24 Sample Site Radial, right 05/10/25 07:24 ABG pH 7.11 (7.35-7.45) L* 05/10/25 07:24 ABG pCO2 83.0 mmHg (35-45) H* 05/10/25 07:24 ABG pO2 298.0 mmHg (80.0-100.0) H 05/10/25 07:24 ABG PO2/FiO2 Ratio 298 05/10/25 07:24 ABG HCO3 26.2 mmol/L (22-26) H 05/10/25 07:24 ABG O2 Saturation > 99.1 05/10/25 07:24 ABG Base Excess -5.6 mmol/L (-2.0-2.0) L 05/10/25 07:24 Rangel Test Pos 05/10/25 07:24 A-a O2 Gradient 40.6 mmHg (5-10) H 05/10/25 07:24 Hematocrit 45.9 % (42-52) 05/10/25 07:24 Hgb O2 Saturation 98.0 % (95-100) 05/10/25 07:24 Carboxyhemoglobin 0.6 %THgb (0.4-20.1) 05/10/25 07:24 Methemoglobin 1.0 % (0.4-1.5) 05/10/25 07:24 Total Hemoglobin 15.0 g/dL (14-18) 05/10/25 07:24 Sodium 142.0 mmol/L (131-143) 05/10/25 07:24 Potassium 4.5 mmol/L (3.5-5.0) 05/10/25 07:24 Glucose 197.0 mg/dL (70-115) H 05/10/25 07:24 Ionized Calcium 1.3 mmol/L (1.1-1.4) 05/10/25 07:24 O2 Delivery Device Ambu 05/10/25 07:24 FiO2 100.0 % 05/10/25 07:24 Manager Product Management ID Cak 05/10/25 07:24 Sodium 139 mmol/L (136-145) 05/10/25 06:35 Potassium 4.2 mmol/L (3.5-5.1) 05/10/25 06:35 Chloride 104 mmol/L (98-107) 05/10/25 06:35 Carbon Dioxide 26 mmol/L (22-29) 05/10/25 06:35 Anion Gap 13.2 (5-19) 05/10/25 06:35 BUN 16 mg/dL (8-23) 05/10/25 06:35 Creatinine 0.9 mg/dL (0.7-1.2) 05/10/25 06:35 GFR Calculation Not Reportable 05/10/25 06:35 Glucose 103 mg/dL (65-115) 05/10/25 06:35 Calculated Osmolality 289 mOsm/kg (285-295) 05/10/25 06:35 Lactic Acid 0.6 mmol/L (0.5-2.2) 05/10/25 06:35 Calcium 8.8 mg/dL (8.5-10.5) 05/10/25 06:35 Total Bilirubin 0.3 mg/dL (0.15-1.2) 05/10/25 06:35 AST 29 U/L (0-40) 05/10/25 06:35 ALT 32 U/L (0-41) 05/10/25 06:35 Alkaline Phosphatase 67 U/L (40-130) 05/10/25 06:35 Troponin T Baseline 32 ng/L (0-15) H 05/10/25 06:35 NT-Pro-B Natriuret Pep 787 pg/mL (0-125) H 05/10/25 06:35 Total Protein 7.3 g/dL (6.6-8.7) 05/10/25 06:35 Albumin 3.8 g/dL (3.5-5.2) 05/10/25 06:35 Globulin 3.5 g/dL (1.3-4.6) 05/10/25 06:35 Influenza A (PCR) Negative (Negative) 05/10/25 07:50 Influenza Type B (PCR) Negative (Negative) 05/10/25 07:50 RSV (PCR) Negative (Negative) 05/10/25 07:50 SARS-CoV-2 (PCR) Negative (Negative) 05/10/25 07:50 Critical Care Time 2 Critical Care Time: Critical Care Time: Yes Total Critical Care Time: 30 Attestation: The high probability of a clinically significant, sudden or life threatening deterioration of the patient's cardiovascular respiratory system(s) required my full and direct attention, intervention and personal management. The critical care time is as shown. This time is in addition to time spent performing any reported procedures but includes the following: [x] Data and vital sign review and interpretation [x] Patient assessment, examination and intervention [x] Documentation [x] Medication orders and management Discharge Plan Discharge Patient Disposition: Admitted As Inpatient Admit Provider: Alvino Walton Clinical Impression: Acute hypercapnic respiratory failure, Cardiac arrest due to respiratory disorder, Acute exacerbation of chronic obstructive airways disease Condition: Stable Sign Out Sign Out Data: Patient Sign Out occurred on 05/10/25 at 07:23. Patient's care was discussed, and care was transferred from Nabil Moe DO to Bob Rodriguez DO. Coding Level of Care Code ED Greens Laborer for Tae Farrell
[2025-05-10 06:40] LABS: Basophils # 0.1 10^3/uL (0.0-0.1); Basophils % 0.8 %; Eosinophils # 0.8 10^3/uL (0.0-0.8); Eosinophils % 9.9 %; Lymphocytes # 2.4 10^3/uL (0.8-4.8); Lymphocytes % 31.5 %; Mean Corpuscular HGB Conc 33.2 g/dL (30-55); Mean Corpuscular Hemoglobin 29.1 pg (27-33); Mean Corpuscular Volume 87.6 fl (82-101); Mean Platelet Volume 9.4 fL (7.4-10.4); Monocytes # 0.6 10^3/uL (0.2-0.9); Monocytes % 7.6 %; Neutrophils # 3.79 10^3/uL (1.8-7.7); Neutrophils % 49.9 %; Nucleated Red Blood Cells % 0 %; Platelet Count 260 10^3/cmm (157-399); Red Blood Count 4.68 10^6/uL (3.85-5.65); Red Cell Distribution Width 13.5 % (12.1-15.1); White Blood Count 7.59 10^3/uL (3.29-11.43)
--- NOTE | 2025-05-10 06:59 | ECG_ITS ---
[facility] Date[facility]25[facility] Pat Name: Ochoa Vanegas Department: Room: Gender: Male Sack Repairer: : 1955 Requested By: Nabil Cruz Order Number: [id number] Gal MD: Priscilla Adams M.D. Measurements Intervals [place] Rate: 79 P: 81 [place]: 151 QRS: 65 QRSD: 97 T: 96 QT: 393 QTc: 453 Interpretive Statements SINUS RHYTHM NONSPECIFIC ST & T-WAVE ABNORMALITY Compared to ECG 03/03/2025 11:36:06 No significant changes Electronically Signed On 05-10-2025 21:57:56 CDT by Priscilla Adams M.D. [email or web address]
[2025-05-10 07:02] LABS: Lactic Sepsis W/Reflex 0.6 mmol/L (0.5-2.2)
[2025-05-10] MEDS: labetalol 5 mg/mL SDV 20mL 20 MG IVP (07:07)
[2025-05-10] MEDS: LORazepam 1 MG/0.5 ML injection IVP (07:08)
[2025-05-10] MEDS: methylPREDNISolone sod succ 125 mg/2 mL INJ IVP (07:08)
[2025-05-10] MEDS: terbutaline 1 mg/mL INJ 0.25 MG SUBCUT (07:09)
[2025-05-10 07:11] LABS: Alanine Aminotransferase 32 U/L (0-41); Albumin Level 3.8 g/dL (3.5-5.2); Alkaline Phosphatase 67 U/L (40-130); Anion Gap 13.2 (5-19); Aspartate Amino Transferase 29 U/L (0-40); Blood Urea Nitrogen 16 mg/dL (8-23); Calcium 8.8 mg/dL (8.5-10.5); Carbon Dioxide 26 mmol/L (22-29); Chloride 104 mmol/L (98-107); Creatinine Clr Calc Pharmacy 78.4756; Globulin 3.5 g/dL (1.3-4.6); Glucose 103 mg/dL (65-115); NT Pro B Type Natriuretic Pept 787 pg/mL (0-125); Osmolality Calculated 289 mOsm/kg (285-295); Potassium 4.2 mmol/L (3.5-5.1); Sodium 139 mmol/L (136-145); Total Bilirubin 0.3 mg/dL (0.15-1.2); Total Protein 7.3 g/dL (6.6-8.7)
[2025-05-10] MEDS: EPINEPHrine 0.1 mg/mL SYR 10 mL 1 MG IVP (07:15)
[2025-05-10] MEDS: succinylcholine 20 mg/mL SDV 10mL 100 MG IVP (07:18)
[2025-05-10] MEDS: etomidate 2 mg/mL INJ SDV 10 mL 20 MG IVP (07:18)
--- NOTE | 2025-05-10 07:24 | ECG_ITS ---
[facility]: [facility]25-[facility]10 Pat Name: Ochoa Vanegas Department: Room: Gender: Male Rehabilitation Team Lead: : 1955 Requested By: Bob Trinidad Order Number: [id number] Gal MD: Priscilla Adams M.D. Measurements Intervals [place] Rate: 73 P: 81 ID: [id number] QRS: 49 QRSD: 98 T: 94 QT: 433 QTc: 478 Interpretive Statements SINUS RHYTHM INTERPRETATION BASED ON A DEFAULT AGE OF 40 YEARS Compared to ECG 05/10/2025 06:59:23 T-wave abnormality no longer present Electronically Signed On 05-10-2025 21:57:50 CDT by Priscilla Adams M.D. [email or web address] [id number]
--- NOTE | 2025-05-10 07:25 | XRR_ITS ---
PROCEDURE INFORMATION: Exam: XR Chest Exam date and time: 05/10/2025 7:32 AM Age: 69 years old Clinical indication: Device placement; Ett placement (vent status); Additional info: Post arrest/intubation TECHNIQUE: Imaging protocol: Radiologic exam of the chest. Views: 1 view. COMPARISON: CR (CHEST, ) 05/10/2025 6:31 AM FINDINGS: Tubes, catheters and devices: Gastric tube enters from above and terminates in the stomach. Endotracheal tube tip extremely poorly visualized but probably terminates 7 cm above the roger. Lungs: Unremarkable. No consolidation. Pleural spaces: Unremarkable. No pleural effusion. No pneumothorax. Heart/Mediastinum: Unremarkable. No cardiomegaly. Bones/joints: Unremarkable. XR/XR chest 1V portable [id number] IMPRESSION: No acute findings. The tip of the endotracheal tube is very poorly seen.
--- NOTE | 2025-05-10 07:25 | PC.NURSE ---
During medication administration, pt became increasing more SOB, this writer producer placed oxygen and coached pt to breathe through his nose, and RT was contacted multiple times to assist and give treatment ordered. Despite efforts pt increasing became worse, this writer producer requested more staff and a physician, pt was moved to a larger room and on moving it was found that pt did not have a pulse. CPR was initiated by this writer producer and staff started ACLS protocol. Please see code charting and Moises Nava RN charting for continued pt care and treatment.
[2025-05-10 07:28] LABS: ABG PH Result 7.11 (7.35-7.45); Base Excess ABG -5.6 mmol/L (-2.0-2.0); Blood Gas Allen Test Pos; Blood Gas Operator Identificat CAK; HCO3 ABG 26.2 mmol/L (22-26); Oxygen Device AMBU; Oxygen Saturation ABG > 99.1; PO2 FiO2 Ratio Arterial Blood 298; Potassium Level - ABG 4.5 mmol/L (3.5-5.0)
[2025-05-10 07:29] LABS: Alveolar-Arterial Oxygen Gradi 40.6 mmHg (5-10); Arterial Blood Gas Hematocrit 45.9 % (42-52); Blood Gas Sample Site Radial, right; Blood Gas Sample Type Arterial; Carboxyhemoglobin 0.6 %THgb (0.4-20.1); Ionized Calcium Level - ABG 1.3 mmol/L (1.1-1.4)
--- NOTE | 2025-05-10 07:30 | PC.NURSE ---
CODE BLUE; 0713 CPR initiated 0714 EPI IVP 0715 Pulse Check/CPR resumed 0717 Pulse Check/ROSC 0718 20 Etom IVP/100 Succs IVP. 0719 Intubated. 24 @ Lips 0719 Stat CRX ordered for tube placement. 0720 Versed and Fent gtt ordered.
[2025-05-10] MEDS: fentaNYL 1,000 MCG/100 ML BAG 5 MCG IV (07:32)
[2025-05-10] MEDS: midazolam hcl 100 MG/100 ML BAG IV (07:32)
[2025-05-10] MEDS: propofol 10 mg/mL SDV 20 mL 100 MG IVP (07:44)
--- NOTE | 2025-05-10 07:44 | PC.NURSE ---
100MG PROPOFOL GIVEN IVP BY DR. JENKINS.
[2025-05-10 07:45] LABS: Troponin(5th) Baseline 32 ng/L (0-15)
[2025-05-10] MEDS: ipratropium-albuterol 3 mL Neb INHALATION ×3 (07:49→20:15)
[2025-05-10] MEDS: levofloxacin-dextrose 5 % 750 MG/150 ML PREMIX 100 MG IV (08:00)
[2025-05-10] MEDS: sodium chloride 0.9% 500 ML 999 ML IV ×2 (08:00→08:14)
--- NOTE | 2025-05-10 08:37 | PC.NURSE ---
PREVIOUS NURSE MOVED PT TO ROOM 10 AT 0711. NO PULSE FOUND WHEN PT WAS IN ROOM. CPR STARTED AT 0713. 1MG EPI GIVE AT 0714. PULSE CHECK AT 0715. NO PULSE FOUND, CPR RESUMED. 2ND PULSE CHECK AT 0717. ROSC OBTAINED. PT GIVEN 20MG ETOMIDATE AND 100MG OF SUCCS GIVEN AT 0718. PT WAS INTUBATED AT 0719.
[2025-05-10 08:47] LABS: Influenza A NEGATIVE (Negative); Influenza B NEGATIVE (Negative); Respiratory Syncytial Virus Ce NEGATIVE (Negative); SARS-CoV-2 PCR NEGATIVE (Negative)
[2025-05-10 09:12] LABS: ABG PCO2 58.5 mmHg (35-45); ABG PH Result 7.27 (7.35-7.45); Alveolar-Arterial Oxygen Gradi 54.1 mmHg (5-10); Arterial Blood Gas Hematocrit 39.3 % (42-52); Base Excess ABG -1.5 mmol/L (-2.0-2.0); Blood Gas Allen Test Pos; Blood Gas Operator Identificat CAK; Blood Gas Sample Site Radial, left; Blood Gas Sample Type Arterial; Blood Gas Tidal Volume 0.45; Carboxyhemoglobin 0.8 %THgb (0.4-20.1); HCO3 ABG 26.5 mmol/L (22-26); HGB O2 Sat 97.9 % (95-100); Ionized Calcium Level - ABG 1.1 mmol/L (1.1-1.4); Methemoglobin 1.1 % (0.4-1.5); Oxygen Device VENT; Oxygen Saturation ABG > 99.1; PO2 FiO2 Ratio Arterial Blood 221; Potassium Level - ABG 4.4 mmol/L (3.5-5.0); Total Hemoglobin 12.8 g/dL (14-18)
--- NOTE | 2025-05-10 09:14 | P.HP_ITS ---
Providers/Chief Complaint 2 Admitting Physician: Alvino Walton Primary Care Provider: Scooby Perez MD Chief Complaint: SOB History of Present Illness Ochoa Vanegas is a 69 year old male with a history of smoking, COPD, lung nodule, GERD, gastroparesis, hypertension, and BPH presenting with two days of shortness of breath, productive cough, and weakness. The patient is not normally on oxygen and recently quit smoking. They attempted to use inhaled bronchodilators at home with minimal relief but ran out of nebulizer treatments. In the emergency department, the patient received nebulizer treatments, solumedrol, and terbutaline. A chest x-ray was unremarkable. The patient was hypertensive with blood pressure as high as 211/128 mmHg. The patient was afebrile, without hypoxemia or sinus tachycardia, but had tachypnea (respiratory rate 20 to 31 breaths per minute). Chemistry panel was unremarkable. Influenza, COVID, and RSV PCR tests were negative. During the ED stay, the patient experienced worsening respiratory function, was moved to a larger room, and lost pulse, prompting a code blue. The patient received CPR, bag-mask ventilation, and one dose of epinephrine, achieving return of spontaneous circulation (ROSC) after two cycles of CPR. Post-CPR ABG showed pH 7.11, CO2 83, PO2 298, bicarb 26.2. EKG showed sinus rhythm. Baseline troponin was 32, and NT-proBNP was 787. Review of Systems 2 General: Reports: ROS unobtainable due to endotracheal tube Medications/Allergies Home Medications ?Medication ?Instructions ?Recorded ?Confirmed ?Last Taken ?Type tamsulosin 0.4 mg capsule 0.4 mg PO QPM #90 caps 11/1605/10/25 05/09/25 Rx albuterol sulfate 90 mcg/actuation 2 puff inhalation Q 4H PRN 12/17/24 05/10/25 03/03/25 Rx aerosol inhaler (Ventolin HFA) shortness of breath or wheezing #8.5 grams budesonide-formoterol HFA 80 2 puff inhalation BID PRN 05/10/25 05/10/25 Unknown History mcg-4.5 mcg/actuation aerosol Shortness Of Breath inhaler (Symbicort) ipratropium 0.5 mg-albuterol 3 mg 3 ml inhalation Q6H PRN Shortness 05/10/25 05/10/25 05/09/25 History (2.5 mg base)/3 mL nebulization Of Breath soln Allergies Allergy/AdvReac Type Severity Reaction Status Date / Time treated wood Allergy Severe Unknown Uncoded 05/10/25 05:39 PFSH Acute 2 PFSH: Medical History Moderate tobacco use disorder Screening for lung cancer Nicotine dependence, cigarettes, in remission Former cigarette smoker Quit smoking after 55 years ~08/2023 Halitosis GERD (gastroesophageal reflux disease) Gastroparesis Lung nodule seen on imaging study 02/06/2023 5 mm largest in right apex, repeat on 08/09/2023 and no changes are recommended return to annual screening Hypertension Allergic rhinitis due to allergen Left shoulder pain Bilateral leg cramps COPD (chronic obstructive pulmonary disease) 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 urethral stricture Chronic indwelling Jacob catheter Gout Foot pain Surgical History History of esophagogastroduodenoscopy (EGD) History of colonoscopy with polypectomy History of appendectomy Family History Denies family history of Hyperlipidemia Hypertension Social History Smoking and tobacco/nicotine status: current every day tobacco/nicotine user cigarettes Packs smoked per day: 1 Years cigarettes smoked: 54 Alcohol intake: current Alcohol intake frequency: holidays/special occasions only Substance/Drug Use: unknown Household members: spouse Marital status: Current occupational status: retired Vitals/I&O/Wt Last Vital Signs Temp 97.5 F L 05/10/25 05:36 Pulse 68 05/10/25 08:46 Resp 19 H 05/10/25 08:30 BP 116/81 05/10/25 08:46 Pulse Ox 98 05/10/25 08:46 O2 Del Method Mechanical Ventilation 05/10/25 08:00 FiO2 80 05/10/25 07:50 05/09/25 05/10/25 05/10/25 22:59 06:59 14:59 Intake Total 0 / 0 1006.30 / 1006.30 Balance 0 / 0 1006.30 / 1006.30 Weight last 48 hrs Weight 81.647 kg Physical Exam 2 HENMT: COMMON NORMALS: oropharynx normal Neck/C-Spine: COMMON NORMALS: no JVD Resp: COMMON NORMALS: normal respiratory effort and clear to auscultation bilaterally AUSCULTATION: diminished lung sounds Cardio: COMMON NORMALS: no JVD, regular rhythm, S1 normal heart sound present, S2 normal heart sound present and No murmurs present (Cardio) RHYTHM: regular rhythm HEART SOUNDS: S1 normal heart sound present and S2 normal heart sound present OTHER: Ca refill 2-3 sec GI: COMMON NORMALS: Normal to inspection, nondistended, normoactive bowel sounds present, Soft to palpation and non-tender PALPATION: Yes Soft to palpation Extremity: COMMON NORMALS: no joint enlargement and no pedal edema Skin: COMMON NORMALS: no rashes or lesions noted GENERAL SKIN EXAM: no rashes or lesions noted Urinary Catheter Management: Jacob: Cath Placed During This Visit: yes Urinary Catheter Date of Insertion: 05/10/25 Data 05/10/25 06:35 05/10/25 06:35 Micro: Microbiology 05/10/25 07:49 Blood Culture - Preliminary Blood SPECIMEN COLLECTED 05/10/25 07:50 Blood Culture - Preliminary Blood SPECIMEN COLLECTED A&P Assessment and plan (1) Cardiopulmonary arrest with successful resuscitation: The patient presented with acute shortness of breath, productive cough, and weakness, with a history of COPD. In the ED, the patient experienced worsening respiratory function, lost pulse, and required code blue with CPR and epinephrine. ROSC was achieved after two cycles. Post-CPR ABG showed severe respiratory acidosis (pH 7.11, CO2 83), and EKG showed sinus rhythm. The etiology of the arrest is likely related to acute respiratory failure in the setting of COPD exacerbation. Cardiac markers (troponin 32, NT-proBNP 787) were elevated, but no acute coronary syndrome was confirmed. Infectious causes (influenza, COVID, RSV) were ruled out. Chest x-ray was unremarkable. The patient was hypertensive and tachypneic but afebrile and without hypoxemia or sinus tachycardia prior to arrest. Reviewed vitals, CBC, CMP, ABG, Trop, BNP, EKG, CXR, without STEMI or acute NE on my interpretation, pending official read. Reviewed ED note, discussed w ED provider, RT, nursing. - Complete troponin EKG series. - Obtain echocardiogram, extremities mildly cool to touch, upper normal capillary refill. No mottling or cyanosis. - Monitor on telemetry - Continue treatment of respiratory failure with severe COPD exacerbation - Received nebulizer treatments, solumedrol, and terbutaline in the ED. - Received CPR, bag-mask ventilation, and one dose of epinephrine during code blue. - Post-CPR monitoring and supportive care. Receiving IVF post resuscitation, monitor for risk of fluid overload, worsening HTN. (2) Acute respiratory failure: History of COPD. Currently severe exacerbation leading to acute respiratory failure and cardiac arrest. The patient is not normally on oxygen and recently quit smoking. Ran out of nebulizer treatments at home and had minimal relief with inhaled bronchodilators. Received appropriate acute management in the ED. - Continue IV corticosteroid, monitor for risk of hypotension worsening, hyperglycemia, gastritis, encephalopathy - Continue empiric antibiotic coverage Levaquin, collect sputum culture. Obtain MRSA PCR - Continue breathing treatments - Prophylactic PPI. - Jacob catheter for now. - Continue COPD management as per acute and chronic needs. - Monitor for further respiratory compromise. (3) Acute exacerbation of chronic obstructive airways disease: As above. (4) Hypertension: History of hypertension with severe elevation in the ED (BP as high as 211/128 mmHg). Treated with labetalol in the ED. - Received labetalol in the ED for blood pressure control. - Monitor blood pressure closely. - does not appear to be on home anti-HTN Plan GERD: PPI BPH: tamsulosin PDMP PDMP Reviewed: Not Reviewed Attestations 2 Medical Necessity Statement*: Admission of over 2 midnights anticipated for assessment and management of respiratory failure. Coding Level of Care Code Critical Care >/= 30 minutes Critical care time (in minutes): 35 The high probability of a clinically significant, sudden or life threatening deterioration, as referenced in this documentation, required my full and direct attention, intervention and personal management. The critical care time shown is in addition to time spent performing any reported separately billable procedures and includes the following: [x] Data and vital sign review and interpretation [x ] Patient assessment, examination and intervention [x] Medication orders and management [x] Patient/Family updates as able [x] Care Coordination and Documentation. Diagnoses Cardiopulmonary arrest with successful resuscitation I46.9 Acute respiratory failure J96.00 Acute exacerbation of chronic obstructive airways disease J44.1 Primary hypertension I10 Hypertension type: primary hypertension
--- NOTE | 2025-05-10 09:39 | USCV_ITS ---
Ochoa Vanegas Age: 69 Gender: M : 1955 Exam Date: 05/10/2025 10:50 Ordering Phys: Alvino Walton MD Technologist: Exam Location: [facility] [place] Indication: pt on vent BP: 123 / 72 HR: 80 Rhythm: Sinus Technical Quality: Very technically difficult study MEASUREMENTS (Male / Female) Normal Values 2D ECHO LV Ejection Fraction MOD 4C 57.6 % LV Ejection Fraction MOD 2C 56.3 % LV Ejection Fraction 2C AL 56.9 % IVC Diameter 1.7 cm DOPPLER AV Peak Velocity 104.0 cm/s LVOT Peak Velocity 88.0 cm/s MV Peak Velocity 104.0 cm/s MV Area PHT 5.2 cm squared Mitral E to A Ratio 0.7 TR Peak Velocity 120.0 cm/s TR Peak Gradient 5.8 mmHg TV Peak E Velocity 91.0 cm/s FINDINGS Left Ventricle Technically limited quality echocardiogram because of poor ultrasonic windows. Left ventricle is normal in size. LV systolic function is normal with EF 55-60%. No regional wall motion abnormalities are seen. Grade 1 diastolic dysfunction Right Ventricle Grossly normal. Right Atrium Grossly normal Left Atrium Grossly dilated Mitral Valve Structurally normal mitral valve. Mild mitral regurgitation Aortic Valve Grossly normal. No significant stenosis Tricuspid Valve Insufficient TR jet to calculate RVSP Pulmonic Valve Not well visualized Pericardium Normal Aorta Not well visualized IVC Not well visualized CONCLUSIONS Technically limited quality echocardiogram because of poor ultrasonic windows. LV systolic function is normal with EF of 55 to 60%. Grade 1 diastolic dysfunction. Left atrium is grossly dilated. Mild mitral regurgitation. No comparison studis are available. Art Brown MD (Electronically Signed) Final Date: 10 May 2025 12:49 S
--- NOTE | 2025-05-10 09:48 | ECG_ITS ---
[facility] Date: 2025-05-10 Pat Name: Ochoa Vanegas Department: Room: [id number] Gender: Male Podiatric Physician: : 1955 Requested By: Bob Trinidad Order Number: [id number] Gal MD: Priscilla Adams M.D. Measurements Intervals [place] Rate: 62 P: 74 VA: 153 QRS: 7 QRSD: 92 T: 205 QT: 488 QTc: 499 Interpretive Statements SINUS RHYTHM ST DEVIATION AND MODERATE T-WAVE ABNORMALITY, CONSIDER ANTEROLATERAL ISCHEMIA [-0.1+ mV T-WAVE IN V3-V6] ST DEVIATION AND MODERATE T-WAVE ABNORMALITY, CONSIDER INFERIOR ISCHEMIA [-0.1+ mV T-WAVE IN II/aVF] Compared to ECG 05/10/2025 07:20:23 T-wave abnormality now present Possible ischemia now present Electronically Signed On 05-10-2025 22:11:31 CDT by Priscilla Adams M.D. [email or web address]
[2025-05-10] MEDS: pantoprazole DR 40 mg Tablet OG-TUBE (10:02)
[2025-05-10] MEDS: enoxaparin 40 mg/0.4 mL Syringe SUBCUT (10:02)
[2025-05-10] MEDS: D5-NS 0.45% + KCL 20 mEq 20 MEQ/1,000 ML BAG 100 MEQ IV ×2 (10:03→19:56)
[2025-05-10 10:17] LABS: Magnesium 2.2 mg/dL (1.7-2.3)
[2025-05-10 10:17] LABS: Troponin 5 2HR 31.45 ng/L (0-15)
[2025-05-10 10:25] LABS: Troponin 5 2HR Delta -0.55 ABS# (0-10)
[2025-05-10] MEDS: methylPREDNISolone sod succ 40 mg/mL INJ IVP ×2 (12:49→21:08)
--- NOTE | 2025-05-10 13:26 | ECG_ITS ---
[facility] Test Date: 2025-05-10 Pat Name: Ochoa Vanegas Department: Room: [facility] Gender: Male Signal Technician: : 1955 Requested By: Bob Trinidad Order Number: [id number] Gal MD: Priscilla Adams M.D. Measurements Intervals [place] Rate: 73 P: 76 TN: 155 QRS: 9 QRSD: 90 T: 211 QT: 463 QTc: 512 Interpretive Statements SINUS RHYTHM ST DEVIATION AND MODERATE T-WAVE ABNORMALITY, CONSIDER ANTEROLATERAL ISCHEMIA [-0.1+ mV T-WAVE IN V3-V6] ST DEVIATION AND MODERATE T-WAVE ABNORMALITY, CONSIDER INFERIOR ISCHEMIA [-0.1+ mV T-WAVE IN II/aVF] Compared to ECG 05/10/2025 09:48:27 No significant changes Electronically Signed On 05-10-2025 22:05:36 CDT by Priscilla Adams M.D. [id number]
[2025-05-10 13:27] LABS: Troponin 5 6HR 39.71 ng/L (0-15); Troponin 5 6HR Delta 7.71 ng/L (0-12)
[2025-05-10 14:58] LABS: MRSA PCR OZH (swab) NOT DETECTED (Negative)
[2025-05-10] MEDS: fentaNYL 1,000 MCG/100 ML BAG 10 MCG IV (16:29)
[2025-05-10] MEDS: tamsulosin 0.4 mg Capsule PO (17:43)
--- NOTE | 2025-05-10 17:56 | PC.NURSE ---
Patient arrived to ICU at approximately 1100. Intubated. Family bedside
[2025-05-11] VITALS (106 sets, daily range): BP systolic 96–188; BP diastolic 69–126; PULSE 66–114; RESP 11–22; TEMP 37.3; O2SAT 79–98
[2025-05-11] MEDS: fentaNYL 1,000 MCG/100 ML BAG 10 MCG IV (01:04)
[2025-05-11] MEDS: ipratropium-albuterol 3 mL Neb INHALATION ×4 (02:07→19:50)
[2025-05-11 04:01] LABS: Basophils % 0.1 %; Hematocrit 39.6 % (37-53); Lymphocytes # 0.9 10^3/uL (0.8-4.8); Lymphocytes % 7.6 %; Mean Corpuscular HGB Conc 31.6 g/dL (30-55); Mean Corpuscular Hemoglobin 29.2 pg (27-33); Mean Corpuscular Volume 92.5 fl (82-101); Mean Platelet Volume 9.3 fL (7.4-10.4); Monocytes # 0.5 10^3/uL (0.2-0.9); Monocytes % 3.9 %; Neutrophils # 10.38 10^3/uL (1.8-7.7); Nucleated Red Blood Cells % 0 %; Platelet Count 224 10^3/cmm (157-399); Red Blood Count 4.28 10^6/uL (3.85-5.65); Red Cell Distribution Width 13.9 % (12.1-15.1)
[2025-05-11 04:19] LABS: Alanine Aminotransferase 39 U/L (0-41); Albumin Level 3.4 g/dL (3.5-5.2); Alkaline Phosphatase 60 U/L (40-130); Anion Gap 14.7 (5-19); Aspartate Amino Transferase 29 U/L (0-40); Blood Urea Nitrogen 28 mg/dL (8-23); Calcium 8.5 mg/dL (8.5-10.5); Carbon Dioxide 22 mmol/L (22-29); Chloride 103 mmol/L (98-107); Creatinine Clr Calc Pharmacy 56.6006; Globulin 3.3 g/dL (1.3-4.6); Glucose 176 mg/dL (65-115); Osmolality Calculated 290 mOsm/kg (285-295); Potassium 4.7 mmol/L (3.5-5.1); Sodium 135 mmol/L (136-145); Total Protein 6.7 g/dL (6.6-8.7)
[2025-05-11 05:40] LABS: Total Bilirubin 0.2 mg/dL (0.15-1.2)
[2025-05-11] MEDS: D5-NS 0.45% + KCL 20 mEq 20 MEQ/1,000 ML BAG 100 MEQ IV (05:58)
[2025-05-11] MEDS: levofloxacin-dextrose 5 % 750 MG/150 ML PREMIX 100 MG IV (06:05)
[2025-05-11] MEDS: methylPREDNISolone sod succ 40 mg/mL INJ IVP ×3 (06:06→20:26)
[2025-05-11] MEDS: midazolam hcl 100 MG/100 ML BAG IV (07:06)
[2025-05-11] MEDS: pantoprazole DR 40 mg Tablet OG-TUBE (08:14)
--- NOTE | 2025-05-11 08:45 | PC.NURSE ---
Dr. Ford bedside this morning, wanted to decrease sedation and do a weaning trial.
[2025-05-11] MEDS: enoxaparin 40 mg/0.4 mL Syringe SUBCUT (09:01)
--- NOTE | 2025-05-11 13:38 | PC.NURSE ---
Patient extubated [address] Ericys orders.
--- NOTE | 2025-05-11 14:09 | PC.NURSE ---
Addendum entered by Wilmar Morales RN 05/11/25 14:12: This nurse witnessed VINCENT Hansen waste fentanyl and versed. Original Note: Fentanyl and versed wasted witnessed by Roosevelt RN.
[2025-05-11] MEDS: tamsulosin 0.4 mg Capsule PO (16:56)
--- NOTE | 2025-05-11 17:47 | PC.NURSE ---
ST seen patient and recommended level 5 diet, minced and moist, thin liquids. Notified Dr. Dominguez of ST eval and recommendations. Dinner tray order placed.
--- NOTE | 2025-05-11 20:03 | PC.NURSE ---
Patient complaining of sternal and rib pain following extubation and code, and patient hypertensive. Contacted Dr. Martinez and new order received for pain meds and if still hypertensive in an hour to call back for further instruction.
[2025-05-11] MEDS: morphine 4 mg/mL SDV 1 mL 2 MG IVP (20:26)
[2025-05-12] VITALS (61 sets, daily range): BP systolic 119–197; BP diastolic 76–125; PULSE 68–126; RESP 17–22; TEMP 36.4–36.6; O2SAT 91–95
[2025-05-12] MEDS: hyDRALAzine 20 mg/mL INJ 1 mL 10 MG IVP ×4 (01:03→17:43)
[2025-05-12] MEDS: ipratropium-albuterol 3 mL Neb INHALATION ×4 (01:51→19:31)
[2025-05-12] MEDS: hyDRALAzine 20 mg/mL INJ 1 mL IVP (03:02)
[2025-05-12] MEDS: morphine 4 mg/mL SDV 1 mL 2 MG IVP (03:48)
[2025-05-12] MEDS: temazepam 15 mg Capsule PO (03:48)
[2025-05-12] MEDS: methylPREDNISolone sod succ 40 mg/mL INJ IVP ×3 (05:44→20:38)
[2025-05-12] MEDS: levofloxacin-dextrose 5 % 750 MG/150 ML PREMIX 100 MG IV (07:50)
--- NOTE | 2025-05-12 08:03 | PC.SOCIAL ---
IMM Update pg 2 of IMM Updated and reviewed w/ patient. Copy provided and copy dated, initialed and placed in chart.
[2025-05-12] MEDS: pantoprazole DR 40 mg Tablet OG-TUBE (08:29)
[2025-05-12] MEDS: enoxaparin 40 mg/0.4 mL Syringe SUBCUT (08:29)
[2025-05-12] MEDS: HYDROcodone-acetaminophen 5-325 mg Tablet 1 TAB PO ×2 (08:44→20:49)
[2025-05-12] MEDS: lidocaine 5% Patch 1 PATCH TOPICAL ×2 (08:44→20:59)
[2025-05-12 09:06] LABS: Basophils % 0.1 %; Hematocrit 40.9 % (37-53); Lymphocytes # 0.9 10^3/uL (0.8-4.8); Lymphocytes % 4.5 %; Mean Corpuscular HGB Conc 32.8 g/dL (30-55); Mean Corpuscular Hemoglobin 29.8 pg (27-33); Mean Corpuscular Volume 90.9 fl (82-101); Mean Platelet Volume 9.8 fL (7.4-10.4); Monocytes # 0.8 10^3/uL (0.2-0.9); Monocytes % 4.2 %; Neutrophils # 17.45 10^3/uL (1.8-7.7); Neutrophils % 90.2 %; Nucleated Red Blood Cells % 0 %; Platelet Count 246 10^3/cmm (157-399); Red Cell Distribution Width 14.2 % (12.1-15.1); White Blood Count 19.34 10^3/uL (3.29-11.43)
[2025-05-12 09:18] LABS: Anion Gap 13.7 (5-19); Blood Urea Nitrogen 40 mg/dL (8-23); Calcium 9.3 mg/dL (8.5-10.5); Carbon Dioxide 24 mmol/L (22-29); Chloride 103 mmol/L (98-107); Creatinine Clr Calc Pharmacy 74.4215; Glucose 123 mg/dL (65-115); Osmolality Calculated 293 mOsm/kg (285-295); Potassium 4.7 mmol/L (3.5-5.1); Sodium 136 mmol/L (136-145)
--- NOTE | 2025-05-12 09:47 | P.PN_ITS ---
Subjective 2 Subjective: His chest is hurting today after CPR. Pain in a large [place] around the center of the chest. Breathing overall feeling little better. Vitals/I&O/Wt Last Vital Signs Temp 99.2 F 05/11/25 08:13 Pulse 107 H 05/12/25 09:06 Resp 18 05/12/25 08:57 BP 162/96 05/12/25 06:15 Pulse Ox 93 05/12/25 08:57 O2 Del Method Nasal Cannula 05/12/25 08:57 O2 Flow Rate 3 05/12/25 08:57 FiO2 40 05/11/25 13:22 05/11/25 05/12/25 05/12/25 22:59 06:59 14:59 Intake Total 600 / 890.267 480 / 7283.363 7882 / 1150 Output Total 1400 / 1400 350 / 1750 Balance -800 / -509.733 130 / -630.552 3915 / 1150 Weight last 48 hrs Weight 81.193 kg Weight 78.464 kg Physical Exam 2 Narrative: Accompanied by his and another female family member. HENMT: COMMON NORMALS: oropharynx normal Neck/C-Spine: COMMON NORMALS: no JVD Resp: COMMON NORMALS: normal respiratory effort and clear to auscultation bilaterally AUSCULTATION: clear to auscultation bilaterally and diminished lung sounds Cardio: COMMON NORMALS: no JVD, regular rhythm, S1 normal heart sound present, S2 normal heart sound present and No murmurs present (Cardio) RHYTHM: regular rhythm HEART SOUNDS: S1 normal heart sound present and S2 normal heart sound present OTHER: Cap refill improved. GI: COMMON NORMALS: Normal to inspection, nondistended, normoactive bowel sounds present, Soft to palpation and non-tender PALPATION: Yes Soft to palpation Extremity: COMMON NORMALS: no joint enlargement and no pedal edema Skin: COMMON NORMALS: no rashes or lesions noted GENERAL SKIN EXAM: no rashes or lesions noted Urinary Catheter Management: Jacob: Cath Placed During This Visit: yes Reason for Continuing Indwelling Catheter: Accurate Measurement of Urinary Output in Critically Ill Patients Urinary Catheter Date of Insertion: 05/10/25 Data 05/12/25 08:36 05/12/25 08:36 Micro: Microbiology 05/10/25 07:55 Gram Stain - Final Sputum - Endotracheal Tube Aspirate Sputum Culture - Preliminary 05/10/25 07:49 Blood Culture - Preliminary Blood NEGATIVE TO DATE 05/10/25 07:50 Blood Culture - Preliminary Blood NEGATIVE TO DATE A&P Assessment and plan (1) Cardiopulmonary arrest with successful resuscitation: Reviewed echocardiogram, discussed with him. He is having chest pain after his compressions. He does not want any more IV morphine. Requested to discontinue. Acetaminophen as needed. Lidocaine patch. Hydrocodone as needed, discussed risk with him, would only use for short-term. Ibuprofen may be considered, but did have mild ALINA yesterday creatinine went up to 1.3. Reassess chemistry. Oxygenation with improvement. Still diminished air entry, some wheezing. Continue to monitor on telemetry. With noted sinus tachycardia. Obtain D-dimer. Reviewed vitals, CBC, BMP. Reviewed sputum culture, blood culture. Discussed with RT, nursing, returned case inspector. - Monitor on telemetry - Continue treatment of respiratory failure with severe COPD exacerbation - Post-CPR monitoring and supportive care. Discontinue IVF post resuscitation, monitor for risk of fluid overload, worsening HTN. (2) Acute respiratory failure: Throat feels somewhat dry with oxygen. Add humidifier. Has hard time bringing up phlegm, add flutter valve. Add Mucinex. Continue oxygen support, wean down as tolerating. Continue Solu-Medrol, Levaquin, breathing treatments. Discussed with him to continue and not miss his medication treatment with Symbicort. Continue treatment of severe exacerbation of COPD. - Continue IV corticosteroid, monitor for risk of hypotension worsening, hyperglycemia, gastritis, encephalopathy - Continue empiric antibiotic coverage Levaquin, collect sputum culture. Reviewed MRSA PCR - Continue breathing treatments - Prophylactic PPI. - Jacob catheter for now. - Continue COPD management as per acute and chronic needs. - Monitor for further respiratory compromise. (3) Acute exacerbation of chronic obstructive airways disease: As above. (4) Hypertension: Reviewed blood pressure, appears to be rising again with extubation, today as high as 173/103. Clonidine 0.1 mg twice daily. Reassess blood pressure. - Monitor blood pressure closely. Blood pressures at home for the most part reportedly not elevated. Plan GERD: PPI BPH: tamsulosin PDMP PDMP Reviewed: Not Reviewed Attestations 2 Medical Necessity Statement*: Continue admission for assessment management of COPD exacerbation, further assessment after cardiopulmonary arrest, optimization of control of hypertension. and High MDM includes amount and/or complexity of data reviewed/ordered [ resulted lab(s)/test(s), ordered lab(s)/test(s) and other healthcare professional discussion] and described risk of complication, morbidity or mortality of management as documented Diagnoses Cardiopulmonary arrest with successful resuscitation I46.9 Acute respiratory failure J96.00 Acute exacerbation of chronic obstructive airways disease J44.1 Primary hypertension I10 Hypertension type: primary hypertension
[2025-05-12] MEDS: cloNIDine 0.1 mg Tablet PO ×2 (13:00→17:43)
[2025-05-12 14:10] LABS: D Dimer 3.48 ug/mLFEU (0-0.59)
[2025-05-12] MEDS: tamsulosin 0.4 mg Capsule PO (17:43)
[2025-05-12] MEDS: guaiFENesin 600 mg Tablet 1200 MG PO (17:43)
[2025-05-13] VITALS (10 sets, daily range): BP systolic 133–196; BP diastolic 87–114; PULSE 98–105; RESP 16–20; TEMP 36.4–36.7; O2SAT 91–95
[2025-05-13] MEDS: HYDROcodone-acetaminophen 5-325 mg Tablet 1 TAB PO ×4 (04:03→17:51)
[2025-05-13 05:45] LABS: Basophils % 0.1 %; Hematocrit 42.4 % (37-53); Lymphocytes # 0.7 10^3/uL (0.8-4.8); Lymphocytes % 4.8 %; Mean Corpuscular HGB Conc 32.5 g/dL (30-55); Mean Corpuscular Hemoglobin 29.5 pg (27-33); Mean Corpuscular Volume 90.6 fl (82-101); Mean Platelet Volume 9.7 fL (7.4-10.4); Monocytes % 7.1 %; Neutrophils # 11.95 10^3/uL (1.8-7.7); Neutrophils % 87.1 %; Nucleated Red Blood Cells % 0 %; Platelet Count 256 10^3/cmm (157-399); Red Blood Count 4.68 10^6/uL (3.85-5.65); Red Cell Distribution Width 14.4 % (12.1-15.1); White Blood Count 13.71 10^3/uL (3.29-11.43)
[2025-05-13 06:04] LABS: Anion Gap 15.6 (5-19); Blood Urea Nitrogen 42 mg/dL (8-23); Calcium 9.3 mg/dL (8.5-10.5); Carbon Dioxide 24 mmol/L (22-29); Chloride 103 mmol/L (98-107); Creatinine Clr Calc Pharmacy 73.7955; Glucose 116 mg/dL (65-115); Osmolality Calculated 297 mOsm/kg (285-295); Potassium 4.6 mmol/L (3.5-5.1); Sodium 138 mmol/L (136-145)
[2025-05-13] MEDS: methylPREDNISolone sod succ 40 mg/mL INJ IVP ×3 (06:14→21:42)
[2025-05-13] MEDS: levofloxacin-dextrose 5 % 750 MG/150 ML PREMIX 100 MG IV (06:26)
--- NOTE | 2025-05-13 07:12 | PC.NURSE ---
Addendum entered by Monica Crenshaw LPN 05/13/25 08:27: Pt refused 9am Clonidine. Would like to speak with Prior to taking ANY antihypertensives. Original Note: Per THERESE Pulliam when giving report to this nurse this morning, pt refused 2 doses of IVP hydralazine overnight. Pt is concerned to take this medication after coding in the ER following IVP lobetalol. Pt and were educated on the importance of managing his BP as it could cause a stroke. Pt and would like to talk with Dr. This nurse notified Dr. Walton. Last BP was 196/114.
[2025-05-13] MEDS: lidocaine 5% Patch 1 PATCH TOPICAL ×2 (08:05→21:45)
[2025-05-13] MEDS: pantoprazole DR 40 mg Tablet OG-TUBE (08:06)
[2025-05-13] MEDS: enoxaparin 40 mg/0.4 mL Syringe SUBCUT (08:06)
[2025-05-13] MEDS: guaiFENesin 600 mg Tablet 1200 MG PO ×2 (08:06→17:50)
[2025-05-13] MEDS: ipratropium-albuterol 3 mL Neb INHALATION ×3 (08:30→19:41)
--- NOTE | 2025-05-13 09:04 | FL_ITS ---
WS: [id number] Modified barium swallow, 05/13/2025 Clinical Data: Other dysphagia Comparison: None. Fluoroscopy time: 4min [id number] # of spot films: Findings: The patient had difficulty with oral bolus transit of multiple materials. It took several seconds before the bolus moved into the hypopharynx. There was some spillage into the vallecula and piriformis. There was minimal penetration but no aspiration. The barium tablet did pass with delay from the oral cavity into the hypopharynx then the esophagus and finally into the stomach. FL/FL barium swallow modifd [id number] Impression: 1. Difficulty with initiating oral bolus transit. 2. Spillage from the oral cavity into the hypopharynx occurred. 3. Penetration but no aspiration.
--- NOTE | 2025-05-13 11:17 | CT_ITS ---
WS: [id number] CTA OF THE CHEST WITH PULMONARY EMBOLISM PROTOCOL TECHNIQUE: High-resolution contrast enhanced CTA of the chest with coronal and sagittal reformatted images with pulmonary embolism protocol. MIP images are also reviewed. CLINICAL INFORMATION: assess for PE COMPARISON: None. DLP: 658.[address] scans at [facility] use at least one of these dose optimization techniques: automated exposure control; mA and/or kV adjustment per patient size (includes targeted exams where dose is matched to clinical indication); or iterative reconstruction. FINDINGS: Proximal main pulmonary arteries are normal. Normal segmental and subsegmental pulmonary arteries. No evidence of pulmonary embolus. Moderate chronic emphysematous changes. No acute pulmonary infiltrates. Normal caliber thoracic aorta. Aortic calcification. Coronary calcification. No mediastinal or hilar lymphadenopathy. Partially visualized hepatic cysts. Nodular thickening LEFT adrenal gland. Partially visualized small RIGHT renal cyst. Small esophageal hiatal hernia. CT/CT angio chest PE protcl [id number] IMPRESSION: 1. No evidence of pulmonary embolus. 2. Moderate chronic emphysematous changes. No acute pulmonary infiltrates. 3. Slight bibasilar atelectasis. 4. No other acute findings.
--- NOTE | 2025-05-13 11:18 | PM.PN ---
Subjective Subjective: He is overall gradually improving. Still requiring oxygen. Was able to ambulate a longer distance today. Noted to be choking up with some oral intake. Still having chest pain Vitals/I&O/Wt Last Vital Signs Temp 97.6 F 05/13/25 08:07 Pulse 104 H 05/13/25 08:30 Resp 18 05/13/25 08:30 BP 153/90 05/13/25 08:07 Pulse Ox 95 05/13/25 08:30 O2 Del Method Nasal Cannula 05/13/25 08:30 O2 Flow Rate 3 05/13/25 08:30 FiO2 40 05/11/25 13:22 05/12/25 05/13/25 05/13/25 22:59 06:59 14:59 Intake Total 500 / 1890 900 / 2790 510 / 510 Output Total 450 / 1025 950 / 1975 Balance 50 / 865 -50 / 815 510 / 510 Weight last 48 hrs Weight 79.56 kg Weight 81.193 kg Physical Exam Narrative: Accompanied by his HENMT: COMMON NORMALS: oropharynx normal Neck/C-Spine: COMMON NORMALS: no JVD Resp: COMMON NORMALS: normal respiratory effort and clear to auscultation bilaterally AUSCULTATION: clear to auscultation bilaterally and diminished lung sounds Cardio: COMMON NORMALS: no JVD, regular rhythm, S1 normal heart sound present, S2 normal heart sound present and No murmurs present (Cardio) RHYTHM: regular rhythm HEART SOUNDS: S1 normal heart sound present and S2 normal heart sound present OTHER: Cap refill improved. GI: COMMON NORMALS: Normal to inspection, nondistended, normoactive bowel sounds present, Soft to palpation and non-tender PALPATION: Yes Soft to palpation Extremity: COMMON NORMALS: no joint enlargement and no pedal edema Skin: COMMON NORMALS: no rashes or lesions noted GENERAL SKIN EXAM: no rashes or lesions noted Urinary Catheter Management: Jacob: Cath Placed During This Visit: yes Reason for Continuing Indwelling Catheter: Chronic Indwelling Urinary Catheter on Admission Urinary Catheter Date of Insertion: 05/10/25 Data 05/13/25 05:21 05/13/25 05:21 Micro: Microbiology 05/10/25 07:55 Gram Stain - Final Sputum - Endotracheal Tube Aspirate Sputum Culture - Preliminary A&P Assessment and plan (1) Acute respiratory failure: With abnormal D-dimer discussed with him and his regarding CTA, obtained. No PE. No atelectasis. Add incentive spirometer. Was noted to be having aspiration with oral intake with speech therapy, requested MBS, discussed with speech therapy. Penetration noted. Continue minced and moist diet, with mildly thick liquids. Aspiration precautions. Continue speech therapy. Reassess chemistry. Monitor for risk of ALINA. Continue Solu-Medrol, Levaquin, breathing treatments. Discussed with him to continue and not miss his medication treatment with Symbicort. Continue treatment of severe exacerbation of COPD. - Continue IV corticosteroid, monitor for risk of hypotension worsening, hyperglycemia, gastritis, encephalopathy - Continue empiric antibiotic coverage Levaquin, collect sputum culture. Reviewed MRSA PCR - Continue breathing treatments - Prophylactic PPI. - Jacob catheter for now. - Continue COPD management as per acute and chronic needs. - Monitor for further respiratory compromise. (2) Cardiopulmonary arrest with successful resuscitation: Still having chest pain. D-dimer obtained, abnormal. Discussed with him and his , discussed consideration of additional assessment with CTA, discussed risk including contrast allergy, OBDULIO. They are agreeable, obtained CTA, reviewed, no PE. Reviewed vitals, CBC, BMP. Reviewed sputum culture, blood culture. He is having chest pain after his compressions. He does not want any more IV morphine. Requested to discontinue. Acetaminophen as needed. Lidocaine patch. Hydrocodone as needed, discussed risk with him, would only use for short-term. Oxygenation with improvement. Still diminished air entry, some wheezing. Continue to monitor on telemetry. With noted sinus tachycardia. Discussed with RT, nursing, welfare case worker. Will likely need oxygen at discharge. - Monitor on telemetry - Continue treatment of respiratory failure with severe COPD exacerbation - Post-CPR monitoring and supportive care. Discontinue IVF post resuscitation, monitor for risk of fluid overload, worsening HTN. (3) Acute exacerbation of chronic obstructive airways disease: As above. (4) Hypertension: He has declined hydralazine, concerned that it did not drop his blood pressure too much. Had started on clonidine, still hypertensive, increase clonidine dose to 0.2 mg. - Monitor blood pressure closely. Blood pressures at home for the most part reportedly not elevated. Plan GERD: PPI BPH: tamsulosin PDMP PDMP Reviewed: Not Reviewed Attestations Medical Necessity Statement*: Continue admission for assessment management of COPD exacerbation, further assessment after cardiopulmonary arrest, optimization of control of hypertension. and High MDM includes amount and/or complexity of data reviewed/ordered [ previous or external records, resulted lab(s)/test(s), ordered lab(s)/test(s) and other healthcare professional discussion] and described risk of complication, morbidity or mortality of management as documented Diagnoses Acute respiratory failure J96.00 Cardiopulmonary arrest with successful resuscitation I46.9 Acute exacerbation of chronic obstructive airways disease J44.1 Primary hypertension I10 Hypertension type: primary hypertension
[2025-05-13] MEDS: iohexol 350 mg/mL 500 mL Btl (per mL) IV (12:10)
--- NOTE | 2025-05-13 13:35 | PC.NURSE ---
patient refused hydralazine this shift, states he is worried about it bottoming his bp. md made aware refusal.
[2025-05-13] MEDS: tamsulosin 0.4 mg Capsule PO (17:50)
[2025-05-13] MEDS: cloNIDine 0.1 mg Tablet 0.2 MG PO (17:52)
[2025-05-14] VITALS (8 sets, daily range): BP systolic 147–165; BP diastolic 89–91; PULSE 84–100; RESP 18–20; TEMP 36.4–36.6; O2SAT 88–97
[2025-05-14] MEDS: ipratropium-albuterol 3 mL Neb INHALATION ×2 (01:30→08:27)
[2025-05-14 05:40] LABS: Basophils % 0.1 %; Hematocrit 39.4 % (37-53); Lymphocytes # 0.7 10^3/uL (0.8-4.8); Lymphocytes % 8.5 %; Mean Corpuscular Volume 87.8 fl (82-101); Monocytes # 0.8 10^3/uL (0.2-0.9); Monocytes % 9.7 %; Neutrophils # 6.98 10^3/uL (1.8-7.7); Neutrophils % 81.2 %; Nucleated Red Blood Cells % 0 %; Platelet Count 212 10^3/cmm (157-399); Red Blood Count 4.49 10^6/uL (3.85-5.65); Red Cell Distribution Width 14.2 % (12.1-15.1); White Blood Count 8.59 10^3/uL (3.29-11.43)
[2025-05-14] MEDS: methylPREDNISolone sod succ 40 mg/mL INJ IVP (06:02)
[2025-05-14] MEDS: levofloxacin-dextrose 5 % 750 MG/150 ML PREMIX 100 MG IV (06:03)
[2025-05-14 06:06] LABS: Anion Gap 14.4 (5-19); Blood Urea Nitrogen 37 mg/dL (8-23); Calcium 8.7 mg/dL (8.5-10.5); Carbon Dioxide 24 mmol/L (22-29); Chloride 103 mmol/L (98-107); Creatinine Clr Calc Pharmacy 73.9695; Glucose 118 mg/dL (65-115); Osmolality Calculated 294 mOsm/kg (285-295); Potassium 4.4 mmol/L (3.5-5.1); Sodium 137 mmol/L (136-145)
[2025-05-14] MEDS: enoxaparin 40 mg/0.4 mL Syringe SUBCUT (07:49)
[2025-05-14] MEDS: lidocaine 5% Patch 1 PATCH TOPICAL (07:49)
[2025-05-14] MEDS: pantoprazole DR 40 mg Tablet OG-TUBE (07:50)
[2025-05-14] MEDS: HYDROcodone-acetaminophen 5-325 mg Tablet 1 TAB PO (07:50)
[2025-05-14] MEDS: guaiFENesin 600 mg Tablet 1200 MG PO (07:50)
--- NOTE | 2025-05-14 08:18 | PM.DCS ---
Discharge Providers Date of Admission: 05/10/25 08:20 Date of Discharge: May 14, 2025 Attending Provider at Admission: Alvino Walton Attending Provider at Discharge: Alvino Walton Primary Care Provider: Scooby Perez MD Diagnoses at Discharge Discharge Diagnosis (1) Acute respiratory failure: Status: Acute (2) Cardiopulmonary arrest with successful resuscitation: Status: Acute (3) Acute exacerbation of chronic obstructive airways disease: Status: Acute (4) Hypertension: Status: Acute Qualifiers: Hypertension type: primary hypertension Qualified Code(s): I10 - Essential (primary) hypertension Reason for Visit Reason for Visit: SOB Brief History: Ochoa Vanegas is a 69 year old male with a history of smoking, COPD, lung nodule, GERD, gastroparesis, hypertension, and BPH presenting with two days of shortness of breath, productive cough, and weakness. The patient is not normally on oxygen and recently quit smoking. They attempted to use inhaled bronchodilators at home with minimal relief but ran out of nebulizer treatments. In the emergency department, the patient received nebulizer treatments, solumedrol, and terbutaline. A chest x-ray was unremarkable. The patient was hypertensive with blood pressure as high as 211/128 mmHg. The patient was afebrile, without hypoxemia or sinus tachycardia, but had tachypnea (respiratory rate 20 to 31 breaths per minute). Chemistry panel was unremarkable. Influenza, COVID, and RSV PCR tests were negative. During the ED stay, the patient experienced worsening respiratory function, was moved to a larger room, and lost pulse, prompting a code blue. The patient received CPR, bag-mask ventilation, and one dose of epinephrine, achieving return of spontaneous circulation (ROSC) after two cycles of CPR. Post-CPR ABG showed pH 7.11, CO2 83, PO2 298, bicarb 26.2. EKG showed sinus rhythm. Baseline troponin was 32, and NT-proBNP was 787. Hospital Course Hospital Course He continued on mechanical ventilatory support, treatment for severe exacerbation of COPD with bronchospastic component, continued treatment with IV steroid, empiric antibiotic, breathing treatments, sputum cultures were obtained and only grew moderate normal marissa. Blood cultures remain negative. Echocardiogram was obtained and he was found to have normal ejection fraction 55 to 60%, grade 1 diastolic dysfunction, mild MVR, left atrium grossly dilated, technically limited study. Troponin series with mild persistent normality in the 30s, without significant rise. His oxygenation gradually improved he weaned off sedation well and was able to extubate nasal cannula oxygen. Having pain after chest compressions which was managed in hospital with Tylenol, lidocaine patch, hydrocodone. Pain with some improvement. With some persistence of sinus tachycardia, although otherwise afebrile, with resolved leukocytosis, additionally underwent assessment by CT angiogram which revealed no PE, moderate chronic emphysematous changes slight bibasilar atelectasis. He also continued to have productive cough, also reported to have some dysphagia on assessment by speech therapy, underwent modified barium swallow evaluation which did show some spillage from the oral cavity into the hypopharynx, some penetration, difficulty with initiating oral bolus transit penetration but no aspiration. He worked with speech therapy, was recommended for minced and moist diet with mildly thickened liquids, continued aspiration precautions. He continue with airway clearance therapy with flutter valve, incentive spirometer, guaifenesin, and will treatment his condition continue improved, he became stronger, was able to ambulate further distance, feeling better and stating he was feeling well and would be happy to return home. His assissts in his care and has a great handle on his medications and nutritional intake. He was noted to have hypertension, although somewhat ambivalent about starting on antihypertensive medication, was agreeable to as needed clonidine. Whenever checking his blood pressures at home prescription with his family it usually runs closer to normal range and they worry his blood pressures may be sensitive to medications. Please reassess blood pressures in office. Once he recovers from acute respiratory illness, please refer him for additional assessment with stress testing. He is instructed to take his COPD medications as scheduled and is referred for follow-up with pulmonology. He qualified for 3 L of oxygen with exertion at discharge. Physical Exam Const: COMMON NORMALS: patient oriented x3 and alert GENERAL APPEARANCE: cooperative ORIENTATION/CONSCIOUSNESS: Yes awake HENMT: COMMON NORMALS: oropharynx normal Neck/C-Spine: COMMON NORMALS: no JVD Resp: COMMON NORMALS: normal respiratory effort and clear to auscultation bilaterally AUSCULTATION: clear to auscultation bilaterally OTHER: But occasional wheeze on exertion and with cough. Cardio: COMMON NORMALS: no JVD, regular rhythm, S1 normal heart sound present, S2 normal heart sound present and No murmurs present (Cardio) RHYTHM: regular rhythm HEART SOUNDS: S1 normal heart sound present and S2 normal heart sound present GI: COMMON NORMALS: Normal to inspection, nondistended, normoactive bowel sounds present, Soft to palpation and non-tender PALPATION: Yes Soft to palpation Extremity: COMMON NORMALS: no joint enlargement and no pedal edema Neuro: COMMON NORMALS: patient oriented x3 and moves all extremities SENSORIUM/ORIENTATION: Yes alert Skin: COMMON NORMALS: no rashes or lesions noted GENERAL SKIN EXAM: no rashes or lesions noted Urinary Catheter Management: Jacob: Cath Placed During This Visit: yes Reason for Continuing Indwelling Catheter: Chronic Indwelling Urinary Catheter on Admission Urinary Catheter Date of Insertion: 05/10/25 Discharge Data Studies Completed and Pending Completed Studies During Hospitalization Category Date Time Status CTA chest [CT angio chest PE protcl [id number]] Routine Cat Scan 05/13/25 11:17 Completed Modified barium swallow [FL barium swallow modifd [id number] Exams 05/13/25 09:04 Completed ] Routine XR chest 1V portable [id number] Stat Exams 05/10/25 06:20 Completed XR chest 1V portable [id number] Stat Exams 05/10/25 07:25 Completed CV. echo complete* [id number] Routine Ultrasound 05/10/25 09:39 Completed Pending at discharge Category Date Time Status Basic Metabolic Panel AM LABS Lab 05/15/25 04:00 Ordered Blood Culture Stat Lab 05/10/25 07:49 Results Complete Blood Count w/Auto AM LABS Lab 05/15/25 04:00 Ordered Radiology Impressions Chest X-Ray 05/10/25 07:25 IMPRESSION: No acute findings. The tip of the endotracheal tube is very poorly seen. Modified Barium Swallow 05/13/25 09:04 Impression: 1. Difficulty with initiating oral bolus transit. 2. Spillage from the oral cavity into the hypopharynx occurred. 3. Penetration but no aspiration. Chest CTA 05/13/25 11:17 IMPRESSION: 1. No evidence of pulmonary embolus. 2. Moderate chronic emphysematous changes. No acute pulmonary infiltrates. 3. Slight bibasilar atelectasis. 4. No other acute findings. Laboratory Results WBC 8.59 10^3/uL (3.29-11.43) 05/14/25 05:13 RBC 4.49 10^6/uL (3.85-5.65) 05/14/25 05:13 Hgb 13.00 g/dL (11.27-16.99) 05/14/25 05:13 Hct 39.4 % (37-53) 05/14/25 05:13 MCV 87.8 fl (82-101) 05/14/25 05:13 MCH 29.0 pg (27-33) 05/14/25 05:13 MCHC 33.0 g/dL (30-55) 05/14/25 05:13 RDW 14.2 % (12.1-15.1) 05/14/25 05:13 Plt Count 212 10^3/cmm (157-399) 05/14/25 05:13 MPV 10.0 fL (7.4-10.4) 05/14/25 05:13 Neut % (Auto) 81.2 % 05/14/25 05:13 Lymph % (Auto) 8.5 % 05/14/25 05:13 Webb % (Auto) 9.7 % 05/14/25 05:13 Eos % (Auto) 0.0 % 05/14/25 05:13 Baso % (Auto) 0.1 % 05/14/25 05:13 Neut # (Auto) 6.98 10^3/uL (1.8-7.7) 05/14/25 05:13 Lymph # (Auto) 0.7 10^3/uL (0.8-4.8) L 05/14/25 05:13 Webb # (Auto) 0.8 10^3/uL (0.2-0.9) 05/14/25 05:13 Eos # (Auto) 0.0 10^3/uL (0.0-0.8) 05/14/25 05:13 Baso # (Auto) 0.0 10^3/uL (0.0-0.1) 05/14/25 05:13 Nucleated RBC % (auto) 0 % 05/14/25 05:13 Nucleated RBCs # 0.0 /100WBC 05/14/25 05:13 D-Dimer 3.48 ug/mLFEU (0-0.59) H 05/12/25 13:28 Specimen Type Arterial 05/10/25 09:01 Sample Site Radial, left 05/10/25 09:01 ABG pH 7.27 (7.35-7.45) L 05/10/25 09:01 ABG pCO2 58.5 mmHg (35-45) H 05/10/25 09:01 ABG pO2 221.0 mmHg (80.0-100.0) H 05/10/25 09:01 ABG PO2/FiO2 Ratio 221 05/10/25 09:01 ABG HCO3 26.5 mmol/L (22-26) H 05/10/25 09:01 ABG O2 Saturation > 99.1 05/10/25 09:01 ABG Base Excess -1.5 mmol/L (-2.0-2.0) 05/10/25 09:01 Rangel Test Pos 05/10/25 09:01 A-a O2 Gradient 54.1 mmHg (5-10) H 05/10/25 09:01 Hematocrit 39.3 % (42-52) L 05/10/25 09:01 Hgb O2 Saturation 97.9 % (95-100) 05/10/25 09:01 Carboxyhemoglobin 0.8 %THgb (0.4-20.1) 05/10/25 09:01 Methemoglobin 1.1 % (0.4-1.5) 05/10/25 09:01 Total Hemoglobin 12.8 g/dL (14-18) L 05/10/25 09:01 Sodium 140.0 mmol/L (131-143) 05/10/25 09:01 Potassium 4.4 mmol/L (3.5-5.0) 05/10/25 09:01 Glucose 162.0 mg/dL (70-115) H 05/10/25 09:01 Ionized Calcium 1.1 mmol/L (1.1-1.4) 05/10/25 09:01 O2 Delivery Device Vent 05/10/25 09:01 FiO2 100.0 % 05/10/25 09:01 Tidal Volume 0.45 05/10/25 09:01 PEEP 8.0 cmH20 05/10/25 09:01 Hearing Screener ID Cak 05/10/25 09:01 Sodium 137 mmol/L (136-145) 05/14/25 05:13 Potassium 4.4 mmol/L (3.5-5.1) 05/14/25 05:13 Chloride 103 mmol/L (98-107) 05/14/25 05:13 Carbon Dioxide 24 mmol/L (22-29) 05/14/25 05:13 Anion Gap 14.4 (5-19) 05/14/25 05:13 BUN 37 mg/dL (8-23) H 05/14/25 05:13 Creatinine 1.0 mg/dL (0.7-1.2) 05/14/25 05:13 GFR Calculation Not Reportable 05/14/25 05:13 Glucose 118 mg/dL (65-115) H 05/14/25 05:13 Calculated Osmolality 294 mOsm/kg (285-295) 05/14/25 05:13 Lactic Acid 0.6 mmol/L (0.5-2.2) 05/10/25 06:35 Calcium 8.7 mg/dL (8.5-10.5) 05/14/25 05:13 Magnesium 2.2 mg/dL (1.7-2.3) 05/10/25 06:35 Total Bilirubin 0.2 mg/dL (0.15-1.2) 05/11/25 03:49 AST 29 U/L (0-40) 05/11/25 03:49 ALT 39 U/L (0-41) 05/11/25 03:49 Alkaline Phosphatase 60 U/L (40-130) 05/11/25 03:49 Troponin T Baseline 32 ng/L (0-15) H 05/10/25 06:35 Troponin T 120 Minute 31.45 ng/L (0-15) H 05/10/25 09:45 Delta Troponin T -0.55 ABS# (0-10) L 05/10/25 09:45 Troponin T Hi Sens 6Hr 39.71 ng/L (0-15) H 05/10/25 12:49 Troponin T Hi Sens 6Hr Delta 7.71 ng/L (0-12) 05/10/25 12:49 NT-Pro-B Natriuret Pep 787 pg/mL (0-125) H 05/10/25 06:35 Total Protein 6.7 g/dL (6.6-8.7) 05/11/25 03:49 Albumin 3.4 g/dL (3.5-5.2) L 05/11/25 03:49 Globulin 3.3 g/dL (1.3-4.6) 05/11/25 03:49 Nasal MRSA (PCR) Not detected (Negative) 05/10/25 10:34 Influenza A (PCR) Negative (Negative) 05/10/25 07:50 Influenza Type B (PCR) Negative (Negative) 05/10/25 07:50 RSV (PCR) Negative (Negative) 05/10/25 07:50 SARS-CoV-2 (PCR) Negative (Negative) 05/10/25 07:50 Vitals Last Vital Signs Temp 97.6 F 05/14/25 07:41 Pulse 96 05/14/25 07:41 Resp 19 H 05/14/25 07:41 BP 165/91 05/14/25 07:41 Pulse Ox 93 05/14/25 07:41 O2 Del Method Nasal Cannula 05/14/25 07:41 O2 Flow Rate 2 05/14/25 04:00 FiO2 40 05/11/25 13:22 Discharge Plan Discharge Patient Disposition: Home Health Service Condition: Stable Prescriptions: New prednisone 20 mg tablet 20 mg PO DAILY Qty: 20 0RF Rx Instructions: 3 tab daily for 3 days, then 2 tab for 3 days, then 1 tab for 3 days, then 1/2 tab for 4 days. levofloxacin 750 mg tablet 750 mg PO DAILY 2 Days Qty: 2 0RF clonidine HCl 0.2 mg tablet 0.2 mg PO Q6H PRN (Reason: hypertension) 2 Days Qty: 30 0RF Rx Instructions: BP >120/80 Continued tamsulosin 0.4 mg capsule 0.4 mg PO QPM Qty: 90 1RF albuterol sulfate [Ventolin HFA] 90 mcg/actuation HFA aerosol inhaler 2 puff inhalation Q4H PRN (Reason: shortness of breath or wheezing) Qty: 8.5 3RF ipratropium-albuterol 0.5 mg-3 mg(2.5 mg base)/3 mL solution for nebulization 3 ml inhalation Q6H PRN (Reason: Shortness Of Breath) budesonide-formoterol [Symbicort] 80-4.5 mcg/actuation HFA aerosol inhaler 2 puff inhalation BID Qty: 10.2 0RF Rx Instructions: Continue scheduled Discharge Orders: Discharge Order (Routine); Ordered 05/14/25 Ordered By: Alvino Walton Other Ambulatory Orders: DME: Oxygen (Order) Location: None Selected Ordered By: Alvino Walton DME: Walker (Order) Location: None Selected Ordered By: Alvino Walton Referrals: [facility] [Outside] [facility] [Outside] Natalia Dominguez MD [Referring, Internal Medicine] - 2 weeks Referral Note: Referral sent, if you havent heard from them in 2 business days reach out to them. Scooby Perez MD [Primary Care Provider, Family Practice] - 05/20/25 2:30 pm Referral Note: Discharge Diet: As Directed Discharge Activity: Increase activity as tolerated, As per PT/OT instructions and Oxygen as instructed Patient Instructions: Prednisone (By mouth), Levofloxacin (By mouth), Using Oxygen at Home (GEN), COPD (Chronic Obstructive Pulmonary Disease) (GEN), Aspiration Precautions (GEN), Acute Respiratory Failure (GEN), Opioid Safety Activity Restrictions/Additional Instructions: Please continue your Symbicort inhaler scheduled twice daily. Albuterol as needed. In case your symptoms are worsening use nebulizer medication as well. Continue aspiration precautions as per speech therapy instruction. Continue diet with minced and moist foods and thicken liquids to mildly thickened consistency. Complete antibiotic and corticosteroid courses. Follow-up with your primary doctor for reassessment. During follow-up with your primary doctor discuss additional assessment of your heart with stress test in 2 to 3 weeks to give time to recover from your respiratory condition. As discussed monitor blood pressure 2-3 times daily, write down values, target long-term blood pressure is 120/80. If your blood pressure is above 120/80, take clonidine. Revisit with your primary doctor for reassessment and consideration of change to a different medication. If you end up taking clonidine for a prolonged period of time, you should discontinue it gradually to prevent withdrawal. Discharge Attestations Time Spent in Discharge Care*: greater than 30 min Quality Metrics Clinical Quality Measures [ No reported AMI, CVA or VTE this stay] Coding Level of Care Code 52277 Total time (in minutes) for Discharge: 45 Diagnoses Acute respiratory failure J96.00 Cardiopulmonary arrest with successful resuscitation I46.9 Acute exacerbation of chronic obstructive airways disease J44.1 Primary hypertension I10 Hypertension type: primary hypertension
--- NOTE | 2025-05-14 08:24 | PC.SOCIAL ---
IMM Updated Updated pt on IMM. no questions voiced. Provided pt a copy. Initialed, dated, & timed copy in chart.
--- NOTE | 2025-05-14 08:33 | PC.NURSE ---
D/C pending delivery of walker and home O2.
== END 2025-05-14 10:49 | disposition home health service (06) | DRG 208 ==
LOC: ER 07:23 → ICU 08:20 → MEDSURG 05-12 13:48
PROVIDERS: Emergency Medicine; Admitting Provider Internal Medicine; Emergency Provider Family Medicine; PCP Family Medicine; Visit Provider Internal Medicine
DX: J96.22 Acute and chronic respiratory failure with hypercapnia (principal); I46.9 Cardiac arrest, cause unspecified; J44.1 Chronic obstructive pulmonary disease with (acute) exacerbation; N17.9 Acute kidney failure, unspecified; I10 Essential (primary) hypertension; Z87.891 Personal history of nicotine dependence; R91.8 Other nonspecific abnormal finding of lung field; K21.9 Gastro-esophageal reflux disease without esophagitis; N40.1 Benign prostatic hyperplasia with lower urinary tract symptoms; R13.10 Dysphagia, unspecified; Z79.51 Long term (current) use of inhaled steroids
CPT/HCPCS: 36415; 36600; 51702; 71045; 71275; 74230; 80048; 80051; 80053; 82330; 82805; 83605; 83735; 83880; 84484; 85025; 85378; 87040; 87070; 87205; 87637; 92507; 92523; 92526; 92610; 92611; 93005; 93306; 94002; 94003; 94640; 94760; 94799; 96365; 96367; 96372; 96374; 96375; 96376; 97110; 97116; 97162; 97166; 97535; 99291; A4570; J0171; J0330; J0360; J1650; J1956; J2060; J2250; J2270; J2704; J2919; J3010; J3105; J3490; J7040; J9999

== ENCOUNTER → 2025-08-10 14:07 | Outpatient (BNVA) | payer MEDICARE, SELFPAY | PROVIDERS: PCP Family Medicine; Referring Provider Internal Medicine Nephrology; Visit Provider Internal Medicine | DX: J44.9 Chronic obstructive pulmonary disease, unspecified (principal); J96.11 Chronic respiratory failure with hypoxia; Z99.81 Dependence on supplemental oxygen; R91.1 Solitary pulmonary nodule; Z87.891 Personal history of nicotine dependence | CPT/HCPCS: 99204 ==

== ENCOUNTER 2025-08-11 10:54 | Outpatient (CLI) | payer MEDICARE, SELFPAY ==
[2025-08-11 11:51] LABS: Hematocrit 38.9 % (37-53); Hemoglobin 12.50 g/dL (11.27-16.99); Mean Corpuscular HGB Conc 32.1 g/dL (30-55); Mean Corpuscular Hemoglobin 28.2 pg (27-33); Mean Corpuscular Volume 87.6 fl (82-101); Nucleated Red Blood Cells % 0 %; Platelet Count 261 10^3/cmm (157-399); Red Blood Count 4.44 10^6/uL (3.85-5.65); White Blood Count 6.42 10^3/uL (3.29-11.43)
== END 2025-08-11 10:55 | disposition home or self-care (01) ==
LOC: LAB 10:55
PROVIDERS: PCP Family Medicine; Visit Provider Internal Medicine
DX: J44.9 Chronic obstructive pulmonary disease, unspecified (principal)
CPT/HCPCS: 36415; 82103; 85025

== ENCOUNTER 2025-08-16 08:47 | Outpatient (CLI) | payer MEDICARE, SELFPAY ==
--- NOTE | 2025-08-16 09:15 | CT_ITS ---
WS: [id number] CT chest wo con [id number] HISTORY: COPD TECHNIQUE: Axial imaging performed through the thorax. Coronal and sagittal reformats are submitted. All CT scans at [facility] use at least one of these dose optimization techniques: automated exposure control; mA and/or kV adjustment per patient size (includes targeted exams where dose is matched to clinical indication); or iterative reconstruction. CONTRAST: None DLP: 337.75 mGy.cm COMPARISON: 05/13/2025 Lungs and central airway: Moderate pulmonary hyperexpansion. Upper lobe bullous disease. No pulmonary mass, nodule or pneumonia. Mild thickening along the LEFT fissure. There are thin bandlike areas of atelectasis or scar at the lung bases and lingula and RIGHT middle lobe. Pleura: Normal. No pleural effusion. Heart and pericardium: Normal size heart with no pericardial effusion. Mediastinum and sharonda: Mediastinum and hilum are difficult to evaluate adequately without IV contrast. No obvious adenopathy. 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 Descending aorta is also ectatic and mildly dilated. Pulmonary artery is normal size. Chest wall and lower neck: No soft tissue masses. Upper abdomen: Scattered low-attenuation masses within the liver. Cysts have been previously described within the liver. There has been an increase in number of low-attenuation lesions since 05/28/2020. Bilateral thickening of the LEFT adrenal gland limbs consistent with hyperplasia. Exophytic cyst from the posterior upper pole RIGHT kidney. Atherosclerotic calcification in the suprarenal aorta. Osseous structures: New fracture involving the sternal body. There is a soft tissue component and lucency at the fracture site. Some callus formation is evident. This may be healing fracture but pathological fracture needs to be considered as a possible etiology. Mild anterior wedging of several midthoracic vertebral bodies. Numerous healed rib fractures in the anterior upper thorax. CT/CT chest wo con [id number] IMPRESSION: 1. Marked emphysema. No pulmonary mass or nodule identified. 2. Limited evaluation of the hilar regions without contrast for adenopathy. 3. New fracture involving the sternal body with a soft tissue component and ly tic changes along the fracture line. Correlate with recent trauma. Pathological fracture is not excluded. This fracture may have been present on the CT of 04/25. Not as well visualized as it is not displaced. 4. Additional numerous bilateral upper rib fractures which have healed. These fractures were new to subacute on the CT from 05/13/2025. 5. Increasing areas of decreased attenuation within the liver. Cysts have been previously described but these have increased in number. Consider ultrasound e valuation of the liver. 6. Hyperplasia LEFT adrenal gland, chronic.
== END 2025-08-16 08:48 | disposition home or self-care (01) ==
LOC: RAD 08:49
PROVIDERS: PCP Internal Medicine Nephrology; Visit Provider Internal Medicine
DX: J43.9 Emphysema, unspecified (principal); S22.43XD Multiple fractures of ribs, bilateral, subsequent encounter for fracture with routine healing; X58.XXXD Exposure to other specified factors, subsequent encounter; E27.8 Other specified disorders of adrenal gland; K76.89 Other specified diseases of liver; I70.0 Atherosclerosis of aorta
CPT/HCPCS: 71250

== ENCOUNTER → 2025-08-20 08:33 | Outpatient (BNVA) | payer MEDICARE, SELFPAY | PROVIDERS: PCP Internal Medicine Nephrology; Visit Provider Internal Medicine | DX: J44.9 Chronic obstructive pulmonary disease, unspecified (principal); J96.11 Chronic respiratory failure with hypoxia; Z99.81 Dependence on supplemental oxygen; J30.2 Other seasonal allergic rhinitis; I11.0 Hypertensive heart disease with heart failure; I50.9 Heart failure, unspecified; M84.48XA Pathological fracture, other site, initial encounter for fracture; X58.XXXA Exposure to other specified factors, initial encounter; Z87.891 Personal history of nicotine dependence | CPT/HCPCS: 99214 ==

== ENCOUNTER → 2025-09-02 08:29 | Outpatient (BNVA) | payer MEDICARE, SELFPAY | PROVIDERS: PCP Internal Medicine Nephrology; Visit Provider Orthopaedic Surgery | DX: S22.20XA Unspecified fracture of sternum, initial encounter for closed fracture (principal); X58.XXXA Exposure to other specified factors, initial encounter | CPT/HCPCS: 71120; 99203 ==

== ENCOUNTER 2025-09-07 07:49 | Outpatient (CLI) | payer MEDICARE, SELFPAY ==
[2025-09-07 08:22] VITALS: PULSE 93; RESP 18; O2SAT 94
== END 2025-09-07 07:50 | disposition home or self-care (01) ==
LOC: RT 07:53
PROVIDERS: PCP Nurse Practitioner Family; Visit Provider Internal Medicine
DX: J44.9 Chronic obstructive pulmonary disease, unspecified (principal); J98.8 Other specified respiratory disorders; R94.2 Abnormal results of pulmonary function studies
CPT/HCPCS: 94060; 94618; 94726; 94729; J7613

== ENCOUNTER → 2025-09-13 08:14 | Outpatient (BNVA) | payer MEDICARE, SELFPAY | PROVIDERS: PCP Nurse Practitioner Family; Visit Provider Internal Medicine Cardiovascular Disease | DX: J96.11 Chronic respiratory failure with hypoxia (principal); R94.31 Abnormal electrocardiogram [ECG] [EKG]; Z86.74 Personal history of sudden cardiac arrest; Z87.891 Personal history of nicotine dependence; R07.9 Chest pain, unspecified; R03.0 Elevated blood-pressure reading, without diagnosis of hypertension | CPT/HCPCS: 36415; 80048; 83880; 93005; 99204 ==

== ENCOUNTER 2025-09-14 08:25 | Outpatient (CLI) | payer MEDICARE, SELFPAY ==
--- NOTE | 2025-09-14 08:45 | NM_ITS ---
WS: [id number] NUCLEAR MEDICINE BONE SCAN Radiopharmaceutical: 26.3 Tc-99m MDP mCi IV Injection site: Antecubital Postinjection imaging delay: 1 hr CLINICAL INFORMATION: Sternum fx COMPARISON: 08/16/2025 FINDINGS: Bone lesions: Radiotracer uptake involving the sternal fracture. Symmetric punctate radiotracer uptake involving the anterior ribs bilaterally in a symmetric fashion compatible with healing fractures. This does not have the appearance of metastatic disease. Soft tissue contours: Normal. Kidneys: Normal. Other findings: None. NM/NM bone scan whole body* [id number] IMPRESSION: Increased radiotracer uptake involving the sternal fracture. Symmetric increase d radiotracer uptake involving numerous bilateral anterior rib fractures in a s ymmetric distribution likely due to prior trauma. Sternal and rib fractures hav e typical distribution of post CPR resuscitation trauma. Recommend correlation with prior cardiac or resuscitation event or other recent midline chest trauma Recommend continued follow-up of the sternal fracture to assess healing
== END 2025-09-14 08:26 | disposition home or self-care (01) ==
LOC: RAD 08:29
PROVIDERS: PCP Nurse Practitioner Family; Visit Provider Orthopaedic Surgery
DX: Z13.820 Encounter for screening for osteoporosis (principal); S22.20XA Unspecified fracture of sternum, initial encounter for closed fracture; X58.XXXA Exposure to other specified factors, initial encounter; M96.A3 Multiple fractures of ribs associated with chest compression and cardiopulmonary resuscitation; M96.A1 Fracture of sternum associated with chest compression and cardiopulmonary resuscitation; M96.89 Other intraoperative and postprocedural complications and disorders of the musculoskeletal system
CPT/HCPCS: 78306; A9561

== ENCOUNTER 2025-09-16 08:19 | Outpatient (CLI) | payer MEDICARE, SELFPAY ==
[2025-09-16 09:00] VITALS: O2SAT 87; O2SAT 92; O2SAT 94
== END 2025-09-16 08:20 | disposition home or self-care (01) ==
LOC: RT 08:22
PROVIDERS: PCP Nurse Practitioner Family; Visit Provider Internal Medicine
DX: J96.11 Chronic respiratory failure with hypoxia (principal)
CPT/HCPCS: 94760

== ENCOUNTER 2025-09-23 07:49 | Outpatient (CLI) | payer MEDICARE, SELFPAY ==
--- NOTE | 2025-09-23 | ECG_ITS ---
[facility] Pat Name: Ochoa Vanegas Department: Room: Gender: Male Management Advisor: : 1955 Requested By: Jose Rafael Lawson Order Number: [id number] Santo MD: Jose Rafael Lawson M.D. Interpretive Statements Procedure: Dobutamine was infused per protocol for chemical stress. Findings: The patient's resting blood pressure was 191/114 mmHg. 20 mg of IV hydralazine was given to the patient with improvement in blood pressure to 158/83. Dobutamine was then infused with a gradual increase in heart rate up to a maximum of 149 bpm which was 100% of maximal predicted heart rate. The patient's maximum blood pressure gradually decreased to 114/73 mmHg. at the end of recovery the patient's blood pressure was 125/81 mmHg with a heart rate of 105 bpm. The patient had no chest pain during the stress test. He did have shortness of breath which resolved in recovery. Resting EKG showed normal sinus rhythm with mild ST depression and anterolateral T wave inversions. There was no worsening of ST depression throughout the stress test. There were occasional PVCs. Conclusion: 1. No Dobutamine induced chest pain. 3. Normal blood pressure and heart rate response. 4. Nuclear myocardial perfusion scan pending; see separate report. 5. Indeterminate stress EKG for ischemia due to baseline ST depression. 6. Occasional PVCs during Dobutamine infusion. Electronically Signed On 09-23-2025 13:11:29 CDT by Jose Rafael Lawson M.D. [email or web address]
[2025-09-23 08:11] VITALS: BMI 25.0
--- NOTE | 2025-09-23 08:24 | NMCV_ITS ---
NM jluis perf SPECT r/s* [id number] Ochoa Vanegas Age: 69 Gender: M : 1955 Exam Date: 09/23/2025 08:51 Ordering Phys: Jose Rafael Lawson MD ([email or web address]) Technologist: TRESA Harris Exam Location: [facility] Indications: cp STRESS TEST Please see separate stress test report in [facility] for full findings IMAGE PROTOCOL Rest/Stress 1 Dobutamine Day Radiopharmaceutical Dose (mCi) Administration Site Administered by Rest: Tc-99m 10.6 IV TRESA Harris Sestamibi Stress:Tc-99m 33 IV Annemarie Valero, [employer] Sestamibi Rest: 23-Sep-2025 60 Discovery 630 Stress: 23-Sep-2025 30 Discovery 630 Supine position only as patient was unable to lay prone. Radiopharmaceutical was injected at 97 maximum heart rate. SPECT RESULTS Technical Quality: Good Raw Data Analysis: Normal Image Corrections: No attenuation or motion correction applied Summed Stress Score: 0 Summed Rest Score: 1 Summed Difference Score: 0 PERFUSION FINDINGS SPECT images demonstrate homogeneous tracer distribution throughout the myocardium. FUNCTIONAL RESULTS (calculated via Gated SPECT) Stress Image LV EF (%): 44 Stress EDV (mL):193 TID: 0.79 Stress ESV (mL):109 FUNCTIONAL FINDINGS: The left ventricular cavity size is enlarged at rest. There is mildly reduced left ventricular systolic function with ejection fraction of 44%. No regional wall motion abnormality identified on the gated images. IMPRESSIONS Myocardial perfusion imaging is normal with no evidence of infarction or ischemia. The left ventricular cavity size is enlarged at rest. There is mildly reduced left ventricular systolic function with ejection fraction of 44%. No regional wall motion abnormality identified on the gated images. Jose Rafael Lawson MD, FACC (Electronically Signed) Final Date: 23 September 2025 12:31 S
[2025-09-23] MEDS: hyDRALAzine 20 mg/mL INJ 1 mL IVP (09:58)
--- NOTE | 2025-09-23 10:00 | PC.NURSE ---
pt set up for stress test and it was discovered pt had an elevated bp, ordering physician notified and nurse was given a verbal order for hydralizine.
[2025-09-23] MEDS: DOBUTtamine 200 MG in sodium chloride 0.9% 34 ML 12 MG IV (10:16)
[2025-09-23] MEDS: atropine 0.1 mg/mL Syr 10 mL 0.5 MG IVP (10:28)
[2025-09-23 12:18] VITALS: BP 128/75; PULSE 123
== END 2025-09-23 07:50 | disposition home or self-care (01) ==
LOC: CDL 07:53
PROVIDERS: PCP Nurse Practitioner Family; Visit Provider Internal Medicine Cardiovascular Disease
DX: R07.9 Chest pain, unspecified (principal); I51.7 Cardiomegaly; I51.89 Other ill-defined heart diseases
CPT/HCPCS: 36415; 78452; 93017; A9500; J0360; J0461; J1250; J7050

== ENCOUNTER → 2025-10-07 12:50 | Outpatient (BNVA) | payer MEDICARE, SELFPAY | PROVIDERS: PCP Nurse Practitioner Family; Visit Provider Internal Medicine | DX: J44.89 Other specified chronic obstructive pulmonary disease (principal); J96.11 Chronic respiratory failure with hypoxia; Z99.81 Dependence on supplemental oxygen; J30.9 Allergic rhinitis, unspecified; I11.0 Hypertensive heart disease with heart failure; I50.9 Heart failure, unspecified; H57.89 Other specified disorders of eye and adnexa; Z87.891 Personal history of nicotine dependence; T78.40XA Allergy, unspecified, initial encounter; X58.XXXA Exposure to other specified factors, initial encounter | CPT/HCPCS: 99214; Q3014 ==

== ENCOUNTER 2025-10-18 07:49 | Outpatient (CLI) | payer MEDICARE, SELFPAY ==
[2025-10-18 10:11] LABS: Anion Gap 11.6 (5-19); Blood Urea Nitrogen 15 mg/dL (8-23); Calcium 8.8 mg/dL (8.5-10.5); Carbon Dioxide 26 mmol/L (22-29); Chloride 103 mmol/L (98-107); Glucose 93 mg/dL (65-115); NT Pro B Type Natriuretic Pept 1774 pg/mL (0-125); Osmolality Calculated 285 mOsm/kg (285-295); Potassium 3.6 mmol/L (3.5-5.1); Sodium 137 mmol/L (136-145)
[2025-10-19 16:19] LABS: Bermuda Class 0; Cladosporium herbarum Class 0; Common Ragweed (Short) (W1) Ig <0.10 kU/L; Cottonwood Class 0; Dermatophagoides Class 0; Dermatophagoides Farinae (D2) <0.10 kU/L; Maple (Box Elder) (T1) Ige <0.10 kU/L; Maple leaf sycamore Tree <0.10 kU/L; Maple leaf sycamore Tree Class 0; Mouse Urine Proteins Class 0; Oak Class 0; Pecan/Hickory Tree <0.10 kU/L; Pecan/Hickory Tree Class 0; Penicillium Class 0; Ragweeed Class 0; Rough Marsh Elder (W16) Ige <0.10 kU/L; Rough Marsh Elder Class 0; Russian Thistle (W11) IgE <0.10 kU/L; White Ash Tree <0.10 kU/L; White Ash Tree Class 0
== END 2025-10-18 07:50 | disposition home or self-care (01) ==
PROVIDERS: Internal Medicine; PCP Nurse Practitioner Family; Visit Provider Internal Medicine Cardiovascular Disease
DX: I10 Essential (primary) hypertension (principal); X58.XXXA Exposure to other specified factors, initial encounter; T78.40XA Allergy, unspecified, initial encounter; R06.02 Shortness of breath
CPT/HCPCS: 80048; 83880; 86003